=== PATIENT | female | born 1930 | race Caucasian/White ===

== ENCOUNTER 2016-10-19 20:43 | Inpatient (IN) ==
[2016-10-19] MEDS ORDERED: methylPREDNISolone SOD SUC 125 MG/2 ML VIAL IV STA (21:26)
[2016-10-19] MEDS ORDERED: IPRATROPIUM 500 MCG/2.5 ML NEB RESP TX STA (21:26)
--- NOTE | 2016-10-19 21:31 | Emergency Department Note ---
Arrival - Arrival Chief Complaint: Shortness of Breath Stated Complaint: heart issues/breathing problems ED Nursing Triage Note: patient to [facility] via stating she was trying to wait til in the am to see dr faye for a thoracentesis, audible wheezing noted in triage. o2 sat 87% Mode of Arrival: Wheelchair Limitations: No Limitations Source: Patient, RN Notes Reviewed Time Seen by Provider: 10/19/16 21:26 - History of Present Illness HPI Narrative: The patient complains of shortness of breath for the past 2 days. She has had a nonproductive cough and says she had a fever of 102 days ago. She denies any chest pain. No edema. She has a history of COPD and is had similar symptoms in the past, however, she has also had problems with pleural effusions and says she sees Dr. Faye about once a year to have it drained. She thinks her symptoms are due to the pleural effusion. She denies any nausea, vomiting or diaphoresis. She denies any rhinorrhea, sore throat or other symptoms. She does have a history of valvular heart disease and had surgery for that in the distant past. She has been told she needs surgery again but has refused due to her age. She says she has never had any coronary disease or congestive heart failure. She has a history of hypertension. Allergies/Adverse Reactions: Allergies Allergy/AdvReac Type Severity Reaction Status Date / Time No Known Allergies Allergy Verified 10/19/16 20:53 Home Medications: Home Medications Medication Instructions Recorded Confirmed Type Albuterol Sulfate [Ventolin HFA] 2 puff INH Q6H PRN 10/19/16 10/19/16 History Aspirin EC Tab 81 mg PO DAILY 10/19/16 10/19/16 History Furosemide Tab [Lasix Tab] 10 mg PO DAILY 10/19/16 10/19/16 History Losartan Potassium 50 mg PO 10/19/16 History amLODIPine [Norvasc] 5 mg PO DAILY 10/19/16 10/19/16 History Review of System - Review of System 12 point system: reviewed and no additional remarkable complaints except as stated - Review of System Constitutional: Present: fever. Absent: diaphoresis Head/Ears/Nose/Throat: Absent: nasal drainage, sore throat Respiratory: Present: cough, respiratory distress, wheezing Cardiovascular: Present: dyspnea on exertion. Absent: chest pain, edema Gastrointestinal: Absent: nausea, vomiting Medical,Surgical,& Family Hx - Medical History Cardio: History of: Congenital Heart Disease, Hypertension, Valvular Heart Disease Respiratory: History of: COPD, Respiratory Problems (Pleural effusions) - Surgical History Cardiac Surgeries: Sugical HX of: Cardiac Surgery - Family History Family History: noncontributory - Social History Smoking Status: Unknown if ever smoked Frequency of Alcohol Use: None Type of Drug Use: None Exam Physical Examination: GENERAL: Alert. No acute distress. HEENT: Normocephalic and atraumatic. There is no nasal drainage. No pharyngeal erythema or exudate. NECK: Normal inspection. Supple. No lymphadenopathy or meningismus. LUNGS: No respiratory distress. Decreased air movement. Heavy wheezing and rhonchi bilaterally. HEART: Regular rate and rhythm. ABDOMEN: Soft, nontender and nondistended with normoactive bowel sounds. BACK: Normal inspection. SKIN: Color normal. Warm and dry. EXTREMITIES: Diffuse tenderness of the lower legs. Normal range of motion. No pedal edema. NEUROLOGICAL/PSYCHIATRIC: Alert and oriented -3 with normal mood and affect. Cranial nerves normal. No motor or sensory deficit. Vital Signs: Vital Signs Temperature 99.0 F 10/19/16 20:46 Pulse Rate 98 H 10/19/16 22:15 Respiratory Rate 19 10/19/16 22:15 Blood Pressure 153/70 10/19/16 20:46 O2 Sat by Pulse Oximetry 98 10/19/16 22:15 Course - Reevaluation(s) Reevaluation #1: Patient states she cannot take albuterol due to heart problems. Time: 21:33 Reevaluation #2: The patient's breathing is slightly better after the Atrovent. We have given her Solu-Medrol and I am going to give her a little bit of Lasix to as her BNP was 305. I think this is mostly a COPD exacerbation however. It would be helpful if she could take albuterol but she insists that she cannot take it. Her troponin has come back slightly elevated at 1.7. I am waiting to discuss her with the licensed tax consultant who is in a procedure at present. Time: 22:44 Reevaluation #3: I have discussed the patient with Dr. Contreras and will admit him for serial enzymes and further evaluation. Time: 23:30 Results - Labs CBC & BMP: 10/19/16 21:20 10/19/16 21:20 Lab Results: I have reviewed the patients labs Labs: Laboratory Tests 10/19/16 10/19/16 10/19/16 21:20 21:20 21:20 INR 1.1 AST 43 H ALT 26 CK-MB (CK-2) 5.6 H CK and CKMB Interp 4.0 Troponin I 1.720 H B-Natriuretic Peptide 305 H Disposition Clinical Impression: Acute exacerbation of chronic obstructive airways disease, Congestive heart failure, Elevated troponin Case discussed with: patient, patient's family Disposition: Still a Patient Condition: Guarded Time of Disposition: 00:24
[2016-10-19 21:36] LABS: Basophils % 0.2 % (0.0-0.8); Eosinophils # 0.1 10*3/uL (0.0-0.87); Eosinophils % 0.5 % (0.00-10.9); Hematocrit 36.6 VOL% (35.7-47.0); Hemoglobin 11.8 GM/DL (12.0-16.0); Immature Granulocytes % 0.4 %; Immature Granulocytes Absolute 0.05 #; Lymphocytes # 1.4 10*3/uL (1.4-4.0); Lymphocytes % 10.4 % (21.3-54.2); Mean Corpuscular HGB Conc 32.2 GM/DL (32-36); Mean Corpuscular Hemoglobin 29 PG (27-34); Mean Corpuscular Volume 90.6 FL (87-102); Mean Platelet Volume 9.9 FL (9.6-12.0); Monocytes # 0.9 10*3/uL (0.11-0.8); Monocytes % 6.9 % (1.7-12.7); Neutrophils # 10.7 10*3/uL (1.4-7.4); Neutrophils % 81.6 % (38.7-73.9); Platelet Count 205 T/CUMM (130-400); Red Blood Count 4.04 MC/CUMM (3.8-5.5); Red Cell Distribution Width 13.2 % (9.3-17.3); White Blood Count 13.1 T/CUMM (4-12)
[2016-10-19 21:44] LABS: INR 1.1; PT Patient Result 11.2 SECS; Partial Thromboplastin Time 32.4 SECS (0-40)
[2016-10-19 21:50] LABS: Albumin 3.5 G/DL (3.4-5.0); Bilirubin,Total 0.9 MG/DL (0.2-1.0); Calcium 8.4 MG/DL (8.5-10.1); Magnesium 1.8 MG/DL (1.8-2.4); Potassium 3.4 MMOL/L (3.5-5.1); Total Protein 6.8 G/DL (6.4-8.3)
[2016-10-19] MEDS ORDERED: methylPREDNISolone SOD SUC 125 MG/2 ML VIAL ONE (21:50)
[2016-10-19 21:59] LABS: Troponin I Only 1.72 NG/ML (0.00-0.045)
[2016-10-19] MEDS ORDERED: NITROGLYCERIN SL 0.4 MG TABLET SL STA (22:02)
[2016-10-19] MEDS ORDERED: FUROSEMIDE 20 MG/2 ML VIAL IV STA (22:02)
[2016-10-19] MEDS ORDERED: ASPIRIN 325 MG TABLET PO STA (22:02)
[2016-10-19] MEDS ORDERED: ENOXAPARIN 100 MG/ML SYRINGE SUBCUT STA (22:03)
[2016-10-20] MEDS ORDERED: FUROSEMIDE 20 MG/2 ML VIAL ONE (01:11)
[2016-10-20] MEDS ORDERED: ASPIRIN EC 325 MG TABLET PO ONE (01:11)
[2016-10-20] MEDS ORDERED: ENOXAPARIN 100 MG/ML SYRINGE SUBCUT ONE (01:11)
[2016-10-20] MEDS ORDERED: ASPIRIN 325 MG TABLET ONE (01:12)
[2016-10-20] MEDS ORDERED: MORPHINE 2 MG/1 ML SYRINGE IV PRN (01:39)
[2016-10-20] MEDS ORDERED: MAGNESIUM SULF RIDER 2 GM in PREMIX 1 EACH IV PRN (01:39)
[2016-10-20] MEDS ORDERED: MAGNESIUM SULF RIDER 4 GM in PREMIX 1 EACH IV PRN (01:39)
[2016-10-20] MEDS ORDERED: ONDANSETRON 4 MG/2 ML VIAL IV PRN (01:39)
[2016-10-20] MEDS ORDERED: ENOXAPARIN 80 MG/0.8 ML SYRINGE SUBCUT SCH (01:39)
[2016-10-20] MEDS: methylPREDNISolone SOD SUC 125 MG/2 ML VIAL IV SCH ×4 (03:57→21:06)
--- NOTE | 2016-10-20 06:48 | XRay Report ---
XR chest 1V portable Indication: Dyspnea Comparison: None available Findings: The heart and mediastinum are within normal limits with cardiac surgery changes. The pulmonary vascularity is increased with bilateral increased interstitial lung density. No other lung infiltrates, effusions, pneumothorax or other abnormality is demonstrated. Impression: Findings suggest cardiac decompensation. PROCEDURE INTERPRETED AT [facility] DEPARTMENT OF RADIOLOGY Final Report Signed by: Dr. Schuyler Guerin
--- NOTE | 2016-10-20 07:09 | EKG Report ---
Stationary ECG Study [facility] Test Date: 10/20/2016 7:12:18 AM Pat Name: FABIAN ORTEGA Department: Room: 293 Gender: F Hall Coordinator: ROSEANN : 1930 Requested by: Jarad Hinojosa Order Number: [id number] Reading MD: INDY PINTO Intervals [place] Rate: 92 P: 71 MA: 184 QRS: 66 QRSD: 88 T: 41 QT: 352 QTc: 402 Interpretive Statements SINUS RHYTHM Electronically Signed On 10-21-16 05:31:25 CDT by INDY PINTO [email or web address]
[2016-10-20] MEDS: IPRATROPIUM 500 MCG/2.5 ML NEB RESP TX SCH ×3 (07:54→19:28)
--- NOTE | 2016-10-20 08:28 | Cardiology History & Physical ---
<Lizzette Hassan - Last Filed: 10/20/16 09:16> Assessment and Plan - Time spent with patient Time spent with patient: Greater than 30 minutes (1) Acute exacerbation of chronic obstructive airways disease Status: Acute Assessment and plan: See plan of care listed below. Current Visit: Yes (2) Elevated troponin Status: Acute Current Visit: Yes (3) Congestive heart failure Status: Acute Assessment and plan: See plan of care listed below. Current Visit: Yes (4) Valvular heart disease Status: Acute Assessment and plan: See plan of care listed below. Current Visit: Yes (5) Hypertension Status: Acute Assessment and plan: See plan of care listed below. Current Visit: Yes (6) Elevated glucose Status: Acute Assessment and plan: See plan of care listed below. Current Visit: Yes (7) Obesity Status: Acute Assessment and plan: See plan of care listed below. Current Visit: Yes (8) Former smoker Status: Acute Assessment and plan: See plan of care listed below. Current Visit: Yes (9) Leukocytosis Status: Acute Assessment and plan: See plan of care listed below. Current Visit: Yes (10) History of coronary artery disease Status: Chronic Assessment and plan: See plan of care listed below. Current Visit: Yes (11) Status post aorto-coronary artery bypass graft Status: Chronic Assessment and plan: See plan of care listed below. Current Visit: Yes History of Present Illness Chief complaint: Shortness of breath History of present illness: Blocker Hand: Dr. Garrett PCP: Marisel Velazquez NP Intake Coordinator: Dr. Erwin Faye Ms. Xiong is a 86 year old female with known history of coronary artery disease, routinely followed by [facility]. Patient has cardiac risk factors significant for known history of CAD hypertension, obesity, sedentary lifestyle, advanced age and former smoker (quit in 1987). Confirms family history of CAD (sister had open heart surgery and in her 50s). She has a past medical history of COPD and valvular heart disease. She reports that at her last appointment with Dr. Garrett informed her that she needed a valve replacement. However, she refused at that time due to her advanced age. She is status post CABG 1987 3. She is a poor historian and is unaware where her grafts are located. I have requested records from [facility]. She does not think that she has had heart catheterization since 1987. I have also requested records from Dr. Garrett's office and [facility]. Reports that she just saw Dr. Erwin Faye 2 weeks ago. She has never been seen by [facility]. Patient presented to [facility] yesterday evening with complaints of shortness of breath and wheezing that began Thursday afternoon. She reports that she does have a history of COPD and has chronic dyspnea, does not use home oxygen. However, this progressively worsened over the weekend. She was attempting to wait until today to see Dr. Erwin Faye. However, yesterday evening her friend became extremely worried and transfer her to the emergency department for further evaluation. She denies experiencing chest pain , heaviness or tightness. She also denies orthopnea, lower extremity edema and PND. She denies any recent change in her exercise tolerance. Confirms fever of 102 at home in nonproductive cough. She presented to [facility] yesterday evening for further evaluation. She has been admitted under cardiology service and housed the telemetry unit. Pulmonary has been consulted as well to assist in her acute COPD exacerbation. Patient was seen and examined on the telemetry unit. She reports her breathing has greatly improved after initiation of steroids and receiving IV Lasix. She is without complaints of chest pain, heaviness and tightness. Patient's troponin has been elevated this hospitalization. 1.720 at admission. This morning it was 1.350. Patient is without complaints of chest pain, heaviness and tightness. EKG does reveal nonspecific ST abnormality. She received therapeutic dose of Lovenox and full dose aspirin in the emergency room yesterday. Will hold off on adding beta blockade at this point due to her acute COPD exacerbation. Lipid panel has been obtained. Will initiate statin as patient does have a history of CAD. Continue nitrates, aspirin and ARB. Echocardiogram ordered. I will keep patient n.p.o. and further discuss with Dr. Tripathi regarding timing for heart catheterization. ASSESSMENT/PLAN: 1. COPD EXACERBATION - I will consult Dr. Erwin Faye as this is her primary head grinder. Continue IV steroid therapy and Atrovent. IV Levaquin has been initiated. 2. CONGESTIVE HEART FAILURE - Patient denies any past medical history of CHF. She reports that her last appointment with Dr. Garrett, he recommended valve replacement. She refused. Etiology could be multifactorial to include: Progression of her underlying CAD and/or valvular heart disease. BNP only mildly elevated at 305. She received a one-time dose of IV Lasix in the emergency department. I requested patient's medical records from Dr. Garrett' s office. I have ordered echocardiogram. I will further discuss with Dr. Tripathi and await his additional recommendations. 3. ELEVATED TROPONIN - Patient's troponin has been elevated this hospitalization. 1.720 at admission. This morning it was 1.350. Patient is without complaints of chest pain, heaviness and tightness. EKG does reveal nonspecific ST abnormality. She received therapeutic dose of Lovenox and full dose aspirin in the emergency room yesterday. Will hold off on adding beta blockade at this point due to her acute COPD exacerbation. Lipid panel has been obtained. Will initiate statin as patient does have a history of CAD. Continue nitrates, aspirin and ARB. I will keep patient n.p.o. and further discuss with Dr. Tripathi regarding timing for heart catheterization. 4. HISTORY OF CAD, STATUS POST CABG 1987 - Patient does have history of coronary artery bypass grafting 3 in 1987. She is unsure of where her grafts are located as she is a poor historian. I have requested these records from [facility]. As above. 5. HYPERTENSION - Patient's home medications have been reinitiated. Will monitor her blood pressure and adjust as needed throughout her hospitalization. 6. FORMER SMOKER - Patient reports that she quit smoking in 1987. 7. OBESITY - Weight loss encouraged. 8. ELEVATED GLUCOSE - Most likely secondary to steroid therapy. Hemoglobin A1c has been ordered. Will order sliding scale insulin for coverage while on IV steroids. 9. HISTORY OF VALVULAR HEART DISEASE - Per patient report, Dr. Garrett recommended valve replacement at her last clinic visit. She refused at that time. This could very well be contributing to her acute congestive heart failure. Echocardiogram has been ordered. I have also requested Dr. Garrett' s clinic note as patient has never been seen at [facility]. 10. LEUKOCYTOSIS - White blood cell count 13.1 with left shift. Patient confirms fever of 102 at home. Low-grade fever of 99.0 noted upon admission to [facility]. Blood cultures are pending. Urinalysis pending. I will go ahead and initiate IV Levaquin. Home Medications Medication Instructions Recorded Confirmed Type Albuterol Sulfate [Ventolin HFA] 2 puff INH Q6H PRN 10/19/16 10/20/16 History Aspirin EC Tab 81 mg PO DAILY 10/19/16 10/20/16 History Furosemide Tab [Lasix Tab] 10 mg PO DAILY 10/19/16 10/20/16 History Losartan Potassium 50 mg PO DAILY 10/19/16 10/20/16 History amLODIPine [Norvasc] 5 mg PO DAILY 10/19/16 10/20/16 History Allergies Allergy/AdvReac Type Severity Reaction Status Date / Time Beta-Blockers Allergy Severe Difficulty Verified 10/20/16 02:38 (Beta-Adrenergic Bloc Breathing Sulfa (Sulfonamide Allergy Unknown Unknown/Unable Verified 10/20/16 02:38 Antibiotics) to obtain - Constitutional Constitutional: Present: fatigue, fever(s), malaise. Absent: chills, weight gain, weight loss - Cardiovascular Cardiovascular: Present: as per HPI, dyspnea, dyspnea on exertion. Absent: chest pain at rest, chest pain with activity, claudication, diaphoresis, edema, radiating jaw, neck or arm pain, lightheadedness, orthopnea, palpitations, PND - Respiratory Respiratory: Present: as per HPI, cough, dyspnea, dyspnea on exertion, wheezing. Absent: hemoptysis, snoring, pain on inspiration, change in phlegm color - Gastrointestinal Gastrointestinal: Absent: change in bowel habits, coffee ground emesis, constipation, cramping, diarrhea, heartburn, hematemesis, hematochezia, loose stools, melena, nausea, vomiting - Neurological Neurological: Absent: abnormal gait, abnormal speech, behavioral changes, dizziness, numbness, paresthesias, syncope Medical,Surgical,& Family Hx - Medical History Cardio: History of: Congenital Heart Disease, Hypertension, Valvular Heart Disease Respiratory: History of: COPD, Respiratory Problems (Pleural effusions) Genitourinary: History of: Bladder Problem (prolapse) - Surgical History Cardiac Surgeries: Sugical HX of: Cardiac Surgery Abdominal Surgeries: Surgical HX of: Cholecystectomy Reproductive Surgeries: Surgical HX of;: Genitourinary Surgery, Gynecologic Surgery, Hysterectomy - Social History Smoking Status: Former smoker Frequency of Alcohol Use: None Type of Drug Use: None Marital Status: Single Lives With:: Alone Functional capacity: uses cane/walker Cardiology Physical Exam - Constitutional Vitals: Vital Signs Temp Pulse Resp BP Pulse Ox 96.6 F L 93 H 18 171/68 90 L 10/20/16 07:45 10/20/16 07:45 10/20/16 07:45 10/20/16 07:45 10/20/16 07:45 Intake and Output 10/19/16 10/20/16 10/20/16 22:59 06:59 14:59 Output Total 600 / 600 Balance -600 / -600 Output: Urine 600 / 600 Other: Voiding Method Toilet Weight 190 lb 203 lb Exam: General: Appears well with no apparent distress. Pleasant and cooperative. Appears comfortable. HEENT: PERRL, normocephalic, atraumatic. Mucous membranes moist. No jaundice noted. Conjunctiva moist and clear, sclerae anicteric Neck: No JVD/HJR, no thyromegaly or lymphadenopathy noted. Cardiac: Regular rate and rhythm. Grade 2 systolic murmur. Lungs: Bilateral rhonchi and wheezing auscultated throughout. Requiring oxygen via nasal cannula. Abdomen: Soft, bowel sounds normoactive. Nontender and nondistended. No abdominal bruit or thrill noted. No masses noted. Extremities: No clubbing, cyanosis noted. No edema noted. Upper extremity pulses 2+. Lower extremity pulses 2+. Capillary refill less than 3 seconds. Skin: No unusual lesions or rashes. No skin breakdown appreciated. Neuro: Awake, alert and oriented 3. Moves all extremities well without hemiparesis or paralysis. No essential tremor is appreciated. Result/EKG - Labs CBC & BMP: 10/19/16 21:20 10/19/16 21:20 Labs: Laboratory Results - last 24 hr 10/19/16 10/19/16 10/19/16 21:20 21:20 21:20 WBC RBC Hgb Hct MCV MCH MCHC RDW Plt Count MPV Neut % (Auto) Lymph % (Auto) [place] % (Auto) Eos % (Auto) Baso % (Auto) Neut # (Auto) Lymph # (Auto) [place] # (Auto) Eos # (Auto) Baso # (Auto) Immature Gran % Nucleated RBC % Immature Gran # Nucleated RBCs # INR 1.1 PT Patient/Control Mix 11.2 Circ Anticoag PTT 32.4 Sodium 136 Potassium 3.4 L Chloride 97 L Carbon Dioxide 29 Anion Gap 13.4 BUN 10 Creatinine 0.70 GFR Calculation 0 BUN/Creatinine Ratio 14.00 Glucose 155 H Calculated Osmolality 273.0 Calcium 8.4 L Magnesium 1.8 Total Bilirubin 0.90 AST 43 H ALT 26 Alkaline Phosphatase 77 Total Creatine Kinase 139 CK-MB (CK-2) 5.6 H CK and CKMB Interp 4.0 Troponin I 1.720 H B-Natriuretic Peptide 305 H Total Protein 6.8 Albumin 3.5 Globulin 3.3 Albumin/Globulin Ratio 1.0 L 10/19/16 10/20/16 10/20/16 21:20 02:10 05:27 WBC 13.1 H RBC 4.04 Hgb 11.8 L Hct 36.6 MCV 90.6 MCH 29 MCHC 32.2 RDW 13.2 Plt Count 205 MPV 9.9 Neut % (Auto) 81.6 H Lymph % (Auto) 10.4 L [place] % (Auto) 6.9 Eos % (Auto) 0.5 Baso % (Auto) 0.2 Neut # (Auto) 10.7 H Lymph # (Auto) 1.4 [place] # (Auto) 0.9 H Eos # (Auto) 0.1 Baso # (Auto) 0.0 Immature Gran % 0.4 Nucleated RBC % 0.0 Immature Gran # 0.05 Nucleated RBCs # 0.00 INR PT Patient/Control Mix Circ Anticoag PTT Sodium Potassium Chloride Carbon Dioxide Anion Gap BUN Creatinine GFR Calculation BUN/Creatinine Ratio Glucose Calculated Osmolality Calcium Magnesium Total Bilirubin AST ALT Alkaline Phosphatase Total Creatine Kinase CK-MB (CK-2) CK and CKMB Interp Troponin I 1.630 H 1.350 H B-Natriuretic Peptide Total Protein Albumin Globulin Albumin/Globulin Ratio <Jewel Tripathi - Last Filed: 10/20/16 10:18> History of Present Illness History of present illness: Cardiology addendum Patient examined chart reviewed and discussed with nurse Lizzette Hassan RN. Acute bronchitis/COPD Status post three-vessel CABG 1987 in [place]. Patient has had no cardiac cath since her bypass surgery. Her last nuclear stress is about 10 years ago. She is followed by Dr. Garrett at [place]. Remote tobacco abuse quit 1987 Chest x-ray shows CHF with small effusion. BNP level 305 Elevated cholesterol, patient refuses statin therapy. Status post cholecystectomy EKG shows sinus rhythm with ST-T wave changes. Non-Q-wave infarction troponin level 1.720 and 1.630 White count 13.1 with left shift Hypertension Murmur aortic sclerosis Plan Levofloxacin nebs O2 Echo Doppler today Will need heart cath when breathing improved. Cardiology Physical Exam - Constitutional Vitals: Vital Signs Temp Pulse Resp BP Pulse Ox 96.6 F L 93 H 18 171/68 90 L 10/20/16 07:45 10/20/16 07:45 10/20/16 07:45 10/20/16 07:45 10/20/16 07:45 Intake and Output 10/19/16 10/20/16 10/20/16 23:59 07:59 15:59 Output Total 600 / 600 Balance -600 / -600 Output: Urine 600 / 600 Other: Voiding Method Toilet Weight 86.183 kg 92.079 kg Patient Weight 10/20/16 23:59 Weight 92.079 kg Result/EKG - Labs CBC & BMP: 10/19/16 21:20 10/19/16 21:20 Labs: Laboratory Results - last 24 hr 10/19/16 10/19/16 10/19/16 21:20 21:20 21:20 WBC RBC Hgb Hct MCV MCH MCHC RDW Plt Count MPV Neut % (Auto) Lymph % (Auto) [place] % (Auto) Eos % (Auto) Baso % (Auto) Neut # (Auto) Lymph # (Auto) [place] # (Auto) Eos # (Auto) Baso # (Auto) Immature Gran % Nucleated RBC % Immature Gran # Nucleated RBCs # INR 1.1 PT Patient/Control Mix 11.2 Circ Anticoag PTT 32.4 Sodium 136 Potassium 3.4 L Chloride 97 L Carbon Dioxide 29 Anion Gap 13.4 BUN 10 Creatinine 0.70 GFR Calculation 0 BUN/Creatinine Ratio 14.00 Glucose 155 H Hemoglobin A1c Calculated Osmolality 273.0 Calcium 8.4 L Magnesium 1.8 Total Bilirubin 0.90 AST 43 H ALT 26 Alkaline Phosphatase 77 Total Creatine Kinase 139 CK-MB (CK-2) 5.6 H CK and CKMB Interp 4.0 Troponin I 1.720 H B-Natriuretic Peptide 305 H Total Protein 6.8 Albumin 3.5 Globulin 3.3 Albumin/Globulin Ratio 1.0 L Triglycerides Cholesterol LDL Cholesterol VLDL Cholesterol HDL Cholesterol Heart Disease Risk Ratio 10/19/16 10/20/16 10/20/16 21:20 02:10 05:27 WBC 13.1 H RBC 4.04 Hgb 11.8 L Hct 36.6 MCV 90.6 MCH 29 MCHC 32.2 RDW 13.2 Plt Count 205 MPV 9.9 Neut % (Auto) 81.6 H Lymph % (Auto) 10.4 L [place] % (Auto) 6.9 Eos % (Auto) 0.5 Baso % (Auto) 0.2 Neut # (Auto) 10.7 H Lymph # (Auto) 1.4 [place] # (Auto) 0.9 H Eos # (Auto) 0.1 Baso # (Auto) 0.0 Immature Gran % 0.4 Nucleated RBC % 0.0 Immature Gran # 0.05 Nucleated RBCs # 0.00 INR PT Patient/Control Mix Circ Anticoag PTT Sodium Potassium Chloride Carbon Dioxide Anion Gap BUN Creatinine GFR Calculation BUN/Creatinine Ratio Glucose Hemoglobin A1c Calculated Osmolality Calcium Magnesium Total Bilirubin AST ALT Alkaline Phosphatase Total Creatine Kinase CK-MB (CK-2) CK and CKMB Interp Troponin I 1.630 H 1.350 H B-Natriuretic Peptide Total Protein Albumin Globulin Albumin/Globulin Ratio Triglycerides Cholesterol LDL Cholesterol VLDL Cholesterol HDL Cholesterol Heart Disease Risk Ratio 10/20/16 10/20/16 10/20/16 08:44 08:44 08:44 WBC RBC Hgb Hct MCV MCH MCHC RDW Plt Count MPV Neut % (Auto) Lymph % (Auto) [place] % (Auto) Eos % (Auto) Baso % (Auto) Neut # (Auto) Lymph # (Auto) [place] # (Auto) Eos # (Auto) Baso # (Auto) Immature Gran % Nucleated RBC % Immature Gran # Nucleated RBCs # INR PT Patient/Control Mix Circ Anticoag PTT Sodium Potassium Chloride Carbon Dioxide Anion Gap BUN Creatinine GFR Calculation BUN/Creatinine Ratio Glucose Hemoglobin A1c 6.1 Calculated Osmolality Calcium Magnesium Total Bilirubin AST ALT Alkaline Phosphatase Total Creatine Kinase CK-MB (CK-2) CK and CKMB Interp Troponin I 1.160 H B-Natriuretic Peptide Total Protein Albumin Globulin Albumin/Globulin Ratio Triglycerides 103 Cholesterol 185 LDL Cholesterol 108.0 VLDL Cholesterol 20.6 HDL Cholesterol 66 H Heart Disease Risk Ratio 2.80
--- NOTE | 2016-10-20 09:00 | Pulmonology Consult Note ---
Assessment and Plan (1) Acute exacerbation of chronic obstructive airways disease Status: Acute Assessment and plan: The patient comes in with acute bronchitis and exacerbation of her COPD. She has been started on antibiotics, steroids, and bronchodilator therapy. Hopefully she will clear fairly quickly. She has not had a lot of problems in the past. She is stable at present. Current Visit: Yes (2) Hypertension Status: Acute Assessment and plan: She will continue with blood pressure medicines. Current Visit: Yes (3) Valvular heart disease Status: Acute Assessment and plan: She has had previous valvular heart disease but has been doing reasonably well lately. Current Visit: Yes History of Present Illness Chief complaint: Shortness of breath History of present illness: Ms. Xiong is a 86 year old white female that has a history of having hypertensive cardiovascular disease and mild heart failure in the past. She probably has a minimal component of COPD. She did have a pleural effusion at one time due to heart failure. She has been doing well lately for the last 2 or 3 days she has had some cough and wheezing and congestion. She comes in now with acute bronchitis. She has had some mild fever and chills. She has been coughing and wheezing. She is not having any chest pain. Home Medications Medication Instructions Recorded Confirmed Type Albuterol Sulfate [Ventolin HFA] 2 puff INH Q6H PRN 10/19/16 10/20/16 History Aspirin EC Tab 81 mg PO DAILY 10/19/16 10/20/16 History Furosemide Tab [Lasix Tab] 10 mg PO DAILY 10/19/16 10/20/16 History Losartan Potassium 50 mg PO DAILY 10/19/16 10/20/16 History amLODIPine [Norvasc] 5 mg PO DAILY 10/19/16 10/20/16 History Allergies Allergy/AdvReac Type Severity Reaction Status Date / Time Beta-Blockers Allergy Severe Difficulty Verified 10/20/16 02:38 (Beta-Adrenergic Bloc Breathing Sulfa (Sulfonamide Allergy Unknown Unknown/Unable Verified 10/20/16 02:38 Antibiotics) to obtain - Constitutional Constitutional: Present: chills, fatigue, fever(s). Absent: weight gain, weight loss - EENT Eyes: Absent: loss of vision Ears: Present: decreased hearing Nose, mouth and throat: Absent: dysphagia, headache(s), sinus pressure - Cardiovascular Cardiovascular: Present: dyspnea. Absent: chest pain at rest, chest pain with activity, edema - Respiratory Respiratory: Present: cough, dyspnea, wheezing, change in phlegm color. Absent : hemoptysis - Gastrointestinal Gastrointestinal: Absent: abdominal pain, change in bowel habits, dysphagia, nausea, vomiting - Genitourinary Genitourinary: Absent: difficulty urinating, dysuria, hematuria - Musculoskeletal Musculoskeletal: Present: arthralgias. Absent: muscle weakness - Neurological Neurological: Absent: abnormal speech, focal weakness, paresthesias Exam (Pulmonay) H&P - Constitutional Vitals: Period Temp Pulse Resp BP Sys/Anderson Pulse Ox Last 24 Hr 96.6 F-99.0 F 87-108 18-28 110-171/53-78 87-98 General appearance: mild distress (She is alert and reasonably comfortable lying in bed. She does have some wheezing and coughing present), over weight - Head Head exam: Present: normal inspection, normocephalic - Eye Eye exam: Present: EOMI. Absent: scleral icterus Pupils: Present: NANCY - ENT ENT exam: Present: normal exam - Neck Neck exam: Present: normal inspection. Absent: lymphadenopathy, thyromegaly - Respiratory Respiratory exam: Present: rhonchi, wheezes, other (She has good breath sounds bilaterally with some wheezing and rhonchi present). Absent: accessory muscle use - Cardiovascular Cardiovascular exam: Present: regular rate and rhythm, systolic murmur (She has a soft systolic murmur). Absent: gallop, JVD - GI/Abdominal GI/Abdominal exam: Present: normal bowel sounds, soft. Absent: distended, organomegaly, tenderness - Extremities Exam Extremities exam: Absent: calf tenderness, edema - Neurological Exam Neurological exam: Present: alert, oriented X3, CN II-XII intact. Absent: motor sensory deficit - Psychiatric Psychiatric exam: Present: normal affect - Skin Skin exam: Present: warm, dry Medical,Surgical,& Family Hx - Medical History Cardio: History of: Congenital Heart Disease, Hypertension, Valvular Heart Disease Respiratory: History of: COPD, Respiratory Problems (Pleural effusions) Genitourinary: History of: Bladder Problem (prolapse) - Surgical History Cardiac Surgeries: Sugical HX of: Cardiac Surgery Abdominal Surgeries: Surgical HX of: Cholecystectomy Reproductive Surgeries: Surgical HX of;: Genitourinary Surgery, Gynecologic Surgery, Hysterectomy - Social History Smoking Status: Former smoker Frequency of Alcohol Use: None Type of Drug Use: None Results - Labs CBC & BMP: 10/19/16 21:20 10/19/16 21:20 - Diagnostic Findings Procedure: Chest x-ray: image reviewed by me, report reviewed by me (Chest x- ray showed borderline cardiomegaly with slight increased markings bilaterally. X-ray does suggest some COPD changes. There is no overt heart failure.)
--- NOTE | 2016-10-20 09:32 | EKG Report ---
Stationary ECG Study [facility] ER Test Date: 10/19/2016 8:55:48 PM Pat Name: FABIAN ORTEGA Department: Room: 293 Gender: F Prescription Clerk: Deepali : 1930 Requested by: Jarad Hinojosa Order Number: [id number] Reading MD: INDY PINTO Intervals Elsa Rate: 110 P: 64 MT: 155 QRS: 64 QRSD: 93 T: 48 QT: 305 QTc: 370 Interpretive Statements SINUS TACHYCARDIA Electronically Signed On 10-21-16 05:16:10 CDT by INDY PINTO [email or web address]
[2016-10-20] MEDS: amLODIPine 5 MG TABLET PO SCH (09:46)
[2016-10-20] MEDS: LOSARTAN 50 MG TABLET PO SCH (09:47)
[2016-10-20] MEDS: PANTOPRAZOLE 40 MG TABLET PO SCH (09:47)
[2016-10-20 09:48] LABS: Risk Ratio 2.8; VLDL CHOLESTEROL 20.6 MG/DL
[2016-10-20] MEDS: ASPIRIN EC 81 MG TABLET PO SCH (09:48)
[2016-10-20] MEDS: FUROSEMIDE 40 MG/4 ML VIAL IV SCH (10:28)
[2016-10-20] MEDS: LEVOFLOXACIN INJ 500 MG in PREMIX 1 EACH IV SCH (10:28)
[2016-10-20 11:50] LABS: Apearance,Urine CLEAR (Clear); Bilirubin,Urine Negative (Negative); Blood, Urine Negative (Negative); Glucose,Urine (UA) Negative (Negative); Hyaline Casts,Urine 1 /LPF (0-3); Ketones,Urine Negative (Negative); Nitrite,Urine Negative (Negative); Protein,Urine Negative; Squamous Epithelial Cell,Urine Occasional /HPF (0-10); Urine Color Yellow (Yellow); Urine Specific Gravity 1.008 (1.001-1.035); Urine Urobilinogen < 2.0 EU/DL (0.2-1.0); WBC,Urine <1 /HPF (0-6)
[2016-10-20] MEDS: INSULIN REGULAR 100 UNIT/ML SUBCUT SCH ×3 (12:50→21:06)
--- NOTE | 2016-10-20 16:33 | ECHO Report ---
Ten Xiong Exam Date: 10/20/2016 10:33 Referring Physician: Technologist: Amie Bansal RDCS Age: 86 Ht (in): 63 Wt (lb): 203 Gender: F Exam Location: [facility] Echo Indications: Dyspnea, unspecified, Elevated troponin, Acute exacerbation COPD, Heart failure, unspecified, Valvular heart disease, Essential (primary) hypertension, Elevated glucose, CAD with previous CABG BP: 171 / 68 HR: 113 Rhythm: Sinus Technical Quality: Limited IMPRESSIONS Left ventricular ejection fraction is estimated at 60 %. Diastolic parameters are most consistent with grade 1 diastolic dysfunction or impaired relaxation. Mild aortic stenosis Mild to moderate posterior directed jet of mitral regurgitation Mild tricuspid regurgitation with estimated right ventricular systolic pressure of 44 mmHg plus right atrial pressure MEASUREMENTS (Male / Female) Normal Values 2D ECHO LV Diastolic Diameter PLAX 4.0 cm 4.2 - 5.9 / 3.9 - 5.3 cm LV Systolic Diameter PLAX 3.5 cm LV Fractional Shortening PLAX 14.4 % IVS Diastolic Thickness 1.1 cm 0.6 - 1.0 / 0.6 - 0.9 cm LVPW Diastolic Thickness 1.1 cm 0.6 - 1.0 / 0.6 - 0.9 cm RV Internal Dim ED PLAX 3.7 cm Aortic Root Diameter 3.1 cm LA Systolic Diameter LX 3.9 cm 3.0 - 4.0 / 2.7 - 3.8 cm DOPPLER TR Peak Velocity 331.0 cm/s TR Peak Gradient 43.8 mmHg FINDINGS Left Ventricle Normal left ventricular cavity size. Mild left ventricular hypertrophy. Left ventricular ejection fraction is estimated at 60 %. Diastolic parameters are most consistent with grade 1 diastolic dysfunction or impaired relaxation Right Ventricle The right ventricle is normal in size and function. Right Atrium Moderately increased right atrial size. Left Atrium Moderately increased left atrial size. Mitral Valve Morphologically normal mitral valve. Mild mitral annular calcification. Mild posterior directed mitral valve regurgitation. Aortic Valve Mild aortic valve calcification. Mild aortic valve stenosis, mean gradient 15 mmHg, PATRICIA 1.6 cm. The peak velocity across the valve is 2.55 m/s. Tricuspid Valve Morphologically normal tricuspid valve. [id number] tricuspid valve regurgitation. Tricuspid regurgitation velocities suggest a RVSP of 44 mmHg plus the right atrial pressure.. Pulmonic Valve Morphologically normal pulmonic valve. Mild pulmonary valve regurgitation. Pericardium Normal pericardium without effusion. Aorta Normal ascending aorta dimension. Shakira Garcia (Electronically Signed) Final Date: 20 October 2016 16:32
[2016-10-20] MEDS: ATORVASTATIN 40 MG TABLET PO SCH (21:06)
[2016-10-21] MEDS: IPRATROPIUM 500 MCG/2.5 ML NEB RESP TX SCH ×2 (00:07→07:24)
[2016-10-21] MEDS: methylPREDNISolone SOD SUC 125 MG/2 ML VIAL IV SCH ×4 (04:32→22:16)
[2016-10-21 05:24] LABS: Basophils % 0.1 % (0.0-0.8); Hematocrit 34.7 VOL% (35.7-47.0); Hemoglobin 11.4 GM/DL (12.0-16.0); Immature Granulocytes % 0.7 %; Lymphocytes % 7.3 % (21.3-54.2); Mean Corpuscular HGB Conc 32.9 GM/DL (32-36); Mean Corpuscular Hemoglobin 30 PG (27-34); Mean Corpuscular Volume 90.6 FL (87-102); Mean Platelet Volume 10.4 FL (9.6-12.0); Monocytes # 0.4 10*3/uL (0.11-0.8); Neutrophils # 12.1 10*3/uL (1.4-7.4); Neutrophils % 88.9 % (38.7-73.9); Platelet Count 219 T/CUMM (130-400); Red Blood Count 3.83 MC/CUMM (3.8-5.5); Red Cell Distribution Width 12.9 % (9.3-17.3); White Blood Count 13.7 T/CUMM (4-12)
[2016-10-21 05:57] LABS: Hypochromasia 1+; Microcytosis 1+; Platelet Estimate Normal
[2016-10-21 06:01] LABS: Calcium 8.4 MG/DL (8.5-10.1); Osmolality,Calculated 277.8 MOS/KG (273-304); Potassium 3.8 MMOL/L (3.5-5.1)
--- NOTE | 2016-10-21 07:42 | XRay Report ---
XR chest 2V Indication: Shortness of breath Comparison: 19 October 2016 Findings: The heart and mediastinum are stable in size and configuration with cardiac surgery changes. The pulmonary vascularity is normal in caliber. There is increased in the right midlung and right lower lung density. No other lung infiltrates, effusions, pneumothorax or other abnormality is demonstrated. Impression: Increased right lower lung density could indicate infiltrate or atelectasis. PROCEDURE INTERPRETED AT [facility] DEPARTMENT OF RADIOLOGY Final Report Signed by: Dr. Schuyler Guerin
[2016-10-21 09:20] LABS: CKMB % 2.7 %
[2016-10-21 09:21] LABS: Troponin I Only 0.768 NG/ML (0.00-0.045)
--- NOTE | 2016-10-21 09:26 | Pulmonology Progress Note ---
Pulmonary - PN: Subj Interval history: Patient is an 86-year-old white lady that has a history of having hypertension and valvular heart disease and has had a component of heart failure in the past. She also may have some very mild COPD. She comes in with coughing and wheezing and looks like she is having a COPD exacerbation. She says she is feeling a little better today. She is still coughing a lot. She is not having any chest pain now. She has developed some right middle lobe atelectasis. She says she is tolerating the treatments okay. Exam (Progress Note) - Constitutional Vitals: Period Temp Pulse Resp BP Sys/Anderson Pulse Ox Last 24 Hr 97.3 F-97.9 F 90-107 18-21 109-149/42-96 91-100 Exam: General appearance: mild distress (She is alert and reasonably comfortable lying in bed. She does have some wheezing and coughing present. She looks like she feels a little better at present.), over weight - Head Head exam: Present: normal inspection, normocephalic - Eye Eye exam: Present: EOMI. Absent: scleral icterus Pupils: Present: NANCY - ENT ENT exam: Present: normal exam - Neck Neck exam: Present: normal inspection. Absent: lymphadenopathy, thyromegaly - Respiratory Respiratory exam: Present: She has fairly good breath sounds bilaterally but she does have mild wheezing still. - Cardiovascular Cardiovascular exam: Present: regular rate and rhythm, systolic murmur (She has a soft systolic murmur). Absent: gallop, JVD - GI/Abdominal GI/Abdominal exam: Present: normal bowel sounds, soft. Absent: distended, organomegaly, tenderness - Extremities Exam Extremities exam: Absent: calf tenderness, edema - Neurological Exam Neurological exam: Present: alert, oriented X3, CN II-XII intact. Absent: motor sensory deficit - Psychiatric Psychiatric exam: Present: normal affect - Skin Skin exam: Present: warm, dry Results - Labs CBC & BMP: 10/21/16 04:11 10/21/16 04:11 - Diagnostic Findings Procedure: Chest x-ray: image reviewed by me, report reviewed by me (Chest x- ray shows right middle lobe atelectasis now.) Assessment and Plan (1) Acute exacerbation of chronic obstructive airways disease Status: Acute Assessment and plan: The patient comes in with acute bronchitis and exacerbation of her COPD. She has been started on antibiotics, steroids, and bronchodilator therapy. She now has some right middle lobe atelectasis. Will continue vigorous respiratory therapy for now. Current Visit: Yes (2) Hypertension Status: Acute Assessment and plan: She will continue with blood pressure medicines. Current Visit: Yes (3) Valvular heart disease Status: Acute Assessment and plan: She has had previous valvular heart disease but has been doing reasonably well lately. Her echo does not look too bad at present. Current Visit: Yes
--- NOTE | 2016-10-21 09:52 | Cardiology Progress Note ---
<Lizzette Hassan - Last Filed: 10/21/16 09:17> Assessment and Plan - Time spent with patient Time spent with patient: Greater than 30 minutes (1) Acute exacerbation of chronic obstructive airways disease Status: Acute Assessment and plan: See plan of care listed below. Current Visit: Yes (2) Elevated troponin Status: Acute Current Visit: Yes (3) Congestive heart failure Status: Acute Assessment and plan: See plan of care listed below. Current Visit: Yes Qualifiers: Congestive heart failure type: diastolic Congestive heart failure chronicity: unspecified congestive heart failure chronicity Qualified Code(s) : I50.30 - Unspecified diastolic (congestive) heart failure (4) Valvular heart disease Status: Acute Assessment and plan: See plan of care listed below. Current Visit: Yes (5) Hypertension Status: Acute Assessment and plan: See plan of care listed below. Current Visit: Yes (6) Elevated glucose Status: Acute Assessment and plan: See plan of care listed below. Current Visit: Yes (7) Obesity Status: Acute Assessment and plan: See plan of care listed below. Current Visit: Yes (8) Former smoker Status: Acute Assessment and plan: See plan of care listed below. Current Visit: Yes (9) Leukocytosis Status: Acute Assessment and plan: See plan of care listed below. Current Visit: Yes (10) History of coronary artery disease Status: Chronic Assessment and plan: See plan of care listed below. Current Visit: Yes (11) Status post aorto-coronary artery bypass graft Status: Chronic Assessment and plan: See plan of care listed below. Current Visit: Yes (12) Acute bronchitis Status: Acute Assessment and plan: See plan of care listed below. Current Visit: Yes (13) Non-ST elevation SD (NSTEMI) Status: Acute Assessment and plan: See plan of care listed below. Current Visit: Yes (14) Mild aortic stenosis Status: Acute Assessment and plan: See plan of care listed below. Current Visit: Yes Cardiology - PN: Subj Interval history: Director Of Pupil Personnel Program: Dr. Garrett PCP: Marisel Velazquez, TOWEL CABINET REPAIRER Community Affairs Manager: Dr. Erwin Faye SUMMARY Ms. Xiong is a 86 year old female with PMH of known history of CAD, hypertension, obesity, former smoker (quit in 1987), COPD and valvular heart disease. She reports that at her last appointment with Dr. Garrett, he informed her that she needed a valve replacement. However, she refused at that time due to her advanced age. She is status post CABG 1987 3. She is a poor historian and is unaware where her grafts are located. I have requested records from [facility]. She does not think that she has had heart catheterization since 1987. I have also requested records from Dr. Garrett's office and [facility]. Reports that she just saw Dr. Erwin Faye 2 weeks ago. She has never been seen by [facility]ology. Patient presented to [facility] October 19, 2016. She has been treated for COPD exacerbation, acute congestive heart failure and non- ST elevation SD. Troponin at admission was noted to be 1.720. It has since trended downward. Dr. Erwin Faye has been consulted for assistance in treating her COPD exacerbation. Plan for left heart catheterization when her breathing improves. OCTOBER 21, 2016 Patient was seen and examined on the telemetry unit. She is without complaints of chest pain, heaviness and tightness. Troponin is trending down. She reports that her breathing has improved overnight but is not yet back to baseline. She is being diuresed with IV Lasix. She is diuresing well with this. Weight is unchanged overnight. Dr. Erwin Faye is treating her acute COPD exacerbation. Echocardiogram yesterday revealed LVEF 60%. Grade 1 diastolic dysfunction. Mild aortic stenosis. Mild to moderate MR. Mild TR. After spending several minutes discussing heart catheterization, patient tells me that she does not wish to have this procedure done. She reports that she is just too old. I continued to discuss and educate her about this procedure and her condition. She then reports that she has had this procedure done before and she understands this procedure. However, continues to refuse to have this procedure done. Overall, her vital signs have been stable. At this point, we will treat her non-ST elevation SD medically. I will further discuss with Dr. Tripathi and await his additional recommendations. ASSESSMENT/PLAN: 1. ACUTE COPD EXACERBATION - Continue IV steroid therapy, Levaquin and Atrovent. Dr. Erwin Faye is following. 2. CONGESTIVE HEART FAILURE, DIASTOLIC DYSFUNCTION - Echocardiogram yesterday revealed LVEF of 60% and grade 1 diastolic dysfunction. Patient is being diuresed with Lasix 40 mg IV daily. She is diuresing well with this. Weight unchanged overnight. Continue Lasix, daily weights and strict I's and O's. 3. NON-ST ELEVATION SD -troponin is trending downward. Today it is 0.768. Patient is without complaints of chest pain, heaviness and tightness. Patient is now refusing heart catheterization. I spent at least 20 minutes in patient' s room discussing and educating her on this procedure. She continues to refuse at this time. At this point, we will treat patient medically. Unable to initiate beta-blockade as patient is allergic to this class of medications. Lipid panel reviewed. LDL 108. Statin was reinitiated yesterday. Patient will need repeat lipid panel in 6 weeks. Continue nitrates, aspirin and ARB. Patient also denies cardiac rehabilitation at this time. I will further discuss with Dr. Tripathi and await his additional recommendations. 4. HISTORY OF CAD, STATUS POST CABG 1987 - Patient does have history of coronary artery bypass grafting 3 in 1987. She is unsure of where her grafts are located as she is a poor historian. 5. HYPERTENSION - Patient's home medications have been reinitiated. Will monitor her blood pressure and adjust as needed throughout her hospitalization. 6. FORMER SMOKER - Patient reports that she quit smoking in 1987. 7. OBESITY - Weight loss encouraged. 8. ELEVATED GLUCOSE - Most likely secondary to steroid therapy. Hemoglobin A1c 6.1. Continue to cover with sliding scale insulin while receiving IV steroids. 9. HISTORY OF VALVULAR HEART DISEASE, MILD AORTIC STENOSIS - Echocardiogram yesterday revealed LVEF 60%. Grade 1 diastolic dysfunction. Mild aortic stenosis. Mild to moderate MR. Mild TR. continue current plan of care. 10. LEUKOCYTOSIS - White blood cell count 13.7 with left shift. Afebrile overnight. Blood cultures reveal no growth at 1 day. UA negative. Continue IV Levaquin. 11. ACUTE BRONCHITIS - Management per Erwin Faye. Continue steroids, antibiotics and bronchodilator therapy. Exam (Progress Note) - Constitutional Vitals: Period Temp Pulse Resp BP Sys/Anderson Pulse Ox Last 24 Hr 97.3 F-97.9 F 90-107 18-21 109-149/42-96 91-100 Exam: General: Appears well with no apparent distress. Pleasant and cooperative. Appears comfortable. HEENT: PERRL, normocephalic, atraumatic. Mucous membranes moist. No jaundice noted. Conjunctiva moist and clear, sclerae anicteric Neck: No JVD/HJR, no thyromegaly or lymphadenopathy noted. Cardiac: Regular rate and rhythm. Grade 2 systolic murmur. Lungs: Breath sounds have improved since yesterday. Bilateral rhonchi, improved. No wheezing auscultated. Requiring oxygen via nasal cannula. Abdomen: Soft, bowel sounds normoactive. Nontender and nondistended. No abdominal bruit or thrill noted. No masses noted. Extremities: No clubbing, cyanosis noted. No edema noted. Upper extremity pulses 2+. Lower extremity pulses 2+. Capillary refill less than 3 seconds. Skin: No unusual lesions or rashes. No skin breakdown appreciated. Neuro: Awake, alert and oriented 3. Moves all extremities well without hemiparesis or paralysis. No essential tremor is appreciated. Result/EKG - Labs CBC & BMP: 10/21/16 04:11 10/21/16 04:11 Lab Results: I have reviewed the past 24 hour labs Labs: Laboratory Results - last 24 hr 10/20/16 10/20/16 10/20/16 08:44 08:44 08:44 WBC RBC Hgb Hct MCV MCH MCHC RDW Plt Count MPV Neut % (Auto) Lymph % (Auto) [place] % (Auto) Eos % (Auto) Baso % (Auto) Neut # (Auto) Lymph # (Auto) [place] # (Auto) Eos # (Auto) Baso # (Auto) Immature Gran % Nucleated RBC % Immature Gran # Nucleated RBCs # Platelet Estimate Hypochromasia Microcytosis Sodium Potassium Chloride Carbon Dioxide Anion Gap BUN Creatinine GFR Calculation BUN/Creatinine Ratio Glucose POC Glucose Hemoglobin A1c 6.1 Calculated Osmolality Calcium Magnesium Troponin I 1.160 H Triglycerides 103 Cholesterol 185 LDL Cholesterol 108.0 VLDL Cholesterol 20.6 HDL Cholesterol 66 H Heart Disease Risk Ratio 2.80 Urine Color Urine Appearance Urine pH Ur Specific Ignacio Urine Protein Urine Glucose (UA) Urine Ketones Urine Blood Urine Nitrate Urine Bilirubin Urine Urobilinogen Urine Leukocytes Urine WBC Ur Squamous Epith Cells Hyaline Casts Ur Culture Indicated? 10/20/16 10/20/16 10/20/16 11:42 12:47 16:11 WBC RBC Hgb Hct MCV MCH MCHC RDW Plt Count MPV Neut % (Auto) Lymph % (Auto) [place] % (Auto) Eos % (Auto) Baso % (Auto) Neut # (Auto) Lymph # (Auto) [place] # (Auto) Eos # (Auto) Baso # (Auto) Immature Gran % Nucleated RBC % Immature Gran # Nucleated RBCs # Platelet Estimate Hypochromasia Microcytosis Sodium Potassium Chloride Carbon Dioxide Anion Gap BUN Creatinine GFR Calculation BUN/Creatinine Ratio Glucose POC Glucose 217 H 133 H Hemoglobin A1c Calculated Osmolality Calcium Magnesium Troponin I Triglycerides Cholesterol LDL Cholesterol VLDL Cholesterol HDL Cholesterol Heart Disease Risk Ratio Urine Color Yellow Urine Appearance Clear Urine pH 6.0 Ur Specific Ignacio 1.008 Urine Protein Negative Urine Glucose (UA) Negative Urine Ketones Negative Urine Blood Negative Urine Nitrate Negative Urine Bilirubin Negative Urine Urobilinogen < 2.0 H Urine Leukocytes Negative Urine WBC <1 Ur Squamous Epith Cells Occasional Hyaline Casts 1 Ur Culture Indicated? Not indicated 10/20/16 10/21/16 10/21/16 20:20 04:11 04:11 WBC 13.7 H RBC 3.83 Hgb 11.4 L Hct 34.7 L MCV 90.6 MCH 30 MCHC 32.9 RDW 12.9 Plt Count 219 MPV 10.4 Neut % (Auto) 88.9 H Lymph % (Auto) 7.3 L [place] % (Auto) 3.0 Eos % (Auto) 0.0 Baso % (Auto) 0.1 Neut # (Auto) 12.1 H Lymph # (Auto) 1.0 L [place] # (Auto) 0.4 Eos # (Auto) 0.0 Baso # (Auto) 0.0 Immature Gran % 0.7 Nucleated RBC % 0.0 Immature Gran # 0.10 Nucleated RBCs # 0.00 Platelet Estimate Normal Hypochromasia 1+ Microcytosis 1+ Sodium 137 Potassium 3.8 Chloride 97 L Carbon Dioxide 34 H Anion Gap 9.8 BUN 16 Creatinine 0.70 GFR Calculation 89 BUN/Creatinine Ratio 22.00 H Glucose 178 H POC Glucose 169 H Hemoglobin A1c Calculated Osmolality 277.8 Calcium 8.4 L Magnesium 2.0 Troponin I Triglycerides Cholesterol LDL Cholesterol VLDL Cholesterol HDL Cholesterol Heart Disease Risk Ratio Urine Color Urine Appearance Urine pH Ur Specific Ignacio Urine Protein Urine Glucose (UA) Urine Ketones Urine Blood Urine Nitrate Urine Bilirubin Urine Urobilinogen Urine Leukocytes Urine WBC Ur Squamous Epith Cells Hyaline Casts Ur Culture Indicated? 10/21/16 07:20 WBC RBC Hgb Hct MCV MCH MCHC RDW Plt Count MPV Neut % (Auto) Lymph % (Auto) [place] % (Auto) Eos % (Auto) Baso % (Auto) Neut # (Auto) Lymph # (Auto) [place] # (Auto) Eos # (Auto) Baso # (Auto) Immature Gran % Nucleated RBC % Immature Gran # Nucleated RBCs # Platelet Estimate Hypochromasia Microcytosis Sodium Potassium Chloride Carbon Dioxide Anion Gap BUN Creatinine GFR Calculation BUN/Creatinine Ratio Glucose POC Glucose 157 H Hemoglobin A1c Calculated Osmolality Calcium Magnesium Troponin I Triglycerides Cholesterol LDL Cholesterol VLDL Cholesterol HDL Cholesterol Heart Disease Risk Ratio Urine Color Urine Appearance Urine pH Ur Specific Ignacio Urine Protein Urine Glucose (UA) Urine Ketones Urine Blood Urine Nitrate Urine Bilirubin Urine Urobilinogen Urine Leukocytes Urine WBC Ur Squamous Epith Cells Hyaline Casts Ur Culture Indicated? <DeuceJewel - Last Filed: 10/21/16 12:16> Cardiology - PN: Subj Interval history: Cardiology addendum Patient examined chart reviewed and discussed with nurse Lizzette Hassan RN. Feels a little better but still coughing and gets breathless getting up to the bathroom Telemetry has been benign. O2 sat 95 on 2 L cannula Decreased breath sounds with scattered rhonchi but no wheezing Regular rhythm no murmur or gallop Echo shows ejection fraction of 60% with grade 1 diastolic dysfunction, mild aortic stenosis and moderate TR, PA pressure 45 Plan Continue IV antibiotics nebs and steroids Exam (Progress Note) - Constitutional Vitals: Period Temp Pulse Resp BP Sys/Anderson Pulse Ox Last 24 Hr 97.3 F-98 F 90-107 18-21 116-149/42-96 91-100 Result/EKG - Labs CBC & BMP: 10/21/16 04:11 10/21/16 04:11 Labs: Laboratory Results - last 24 hr 10/20/16 10/20/16 10/20/16 12:47 16:11 20:20 WBC RBC Hgb Hct MCV MCH MCHC RDW Plt Count MPV Neut % (Auto) Lymph % (Auto) [place] % (Auto) Eos % (Auto) Baso % (Auto) Neut # (Auto) Lymph # (Auto) [place] # (Auto) Eos # (Auto) Baso # (Auto) Immature Gran % Nucleated RBC % Immature Gran # Nucleated RBCs # Platelet Estimate Hypochromasia Microcytosis Sodium Potassium Chloride Carbon Dioxide Anion Gap BUN Creatinine GFR Calculation BUN/Creatinine Ratio Glucose POC Glucose 217 H 133 H 169 H Calculated Osmolality Calcium Magnesium Total Creatine Kinase CK-MB (CK-2) CK and CKMB Interp Troponin I 10/21/16 10/21/16 10/21/16 04:11 04:11 07:20 WBC 13.7 H RBC 3.83 Hgb 11.4 L Hct 34.7 L MCV 90.6 MCH 30 MCHC 32.9 RDW 12.9 Plt Count 219 MPV 10.4 Neut % (Auto) 88.9 H Lymph % (Auto) 7.3 L [place] % (Auto) 3.0 Eos % (Auto) 0.0 Baso % (Auto) 0.1 Neut # (Auto) 12.1 H Lymph # (Auto) 1.0 L [place] # (Auto) 0.4 Eos # (Auto) 0.0 Baso # (Auto) 0.0 Immature Gran % 0.7 Nucleated RBC % 0.0 Immature Gran # 0.10 Nucleated RBCs # 0.00 Platelet Estimate Normal Hypochromasia 1+ Microcytosis 1+ Sodium 137 Potassium 3.8 Chloride 97 L Carbon Dioxide 34 H Anion Gap 9.8 BUN 16 Creatinine 0.70 GFR Calculation 89 BUN/Creatinine Ratio 22.00 H Glucose 178 H POC Glucose 157 H Calculated Osmolality 277.8 Calcium 8.4 L Magnesium 2.0 Total Creatine Kinase CK-MB (CK-2) CK and CKMB Interp Troponin I 10/21/16 10/21/16 08:19 11:32 WBC RBC Hgb Hct MCV MCH MCHC RDW Plt Count MPV Neut % (Auto) Lymph % (Auto) [place] % (Auto) Eos % (Auto) Baso % (Auto) Neut # (Auto) Lymph # (Auto) [place] # (Auto) Eos # (Auto) Baso # (Auto) Immature Gran % Nucleated RBC % Immature Gran # Nucleated RBCs # Platelet Estimate Hypochromasia Microcytosis Sodium Potassium Chloride Carbon Dioxide Anion Gap BUN Creatinine GFR Calculation BUN/Creatinine Ratio Glucose POC Glucose 177 H Calculated Osmolality Calcium Magnesium Total Creatine Kinase 225 H D CK-MB (CK-2) 6.0 H CK and CKMB Interp 2.7 Troponin I 0.768 H D
[2016-10-21] MEDS: LEVOFLOXACIN INJ 500 MG in PREMIX 1 EACH IV SCH (10:05)
[2016-10-21] MEDS: FUROSEMIDE 40 MG/4 ML VIAL IV SCH (10:06)
[2016-10-21] MEDS: amLODIPine 5 MG TABLET PO SCH (10:07)
[2016-10-21] MEDS: PANTOPRAZOLE 40 MG TABLET PO SCH (10:07)
[2016-10-21] MEDS: ASPIRIN EC 81 MG TABLET PO SCH (10:07)
[2016-10-21] MEDS: ENOXAPARIN 80 MG/0.8 ML SYRINGE SUBCUT SCH (10:07)
[2016-10-21] MEDS: INSULIN REGULAR 100 UNIT/ML SUBCUT SCH ×4 (10:13→22:16)
[2016-10-21] MEDS: LOSARTAN 50 MG TABLET PO SCH (10:13)
[2016-10-21] MEDS: ALBUTEROL/IPRATROPIUM 3 ML NEB RESP TX SCH ×4 (13:46→23:30)
[2016-10-21] MEDS: ATORVASTATIN 40 MG TABLET PO SCH (22:18)
[2016-10-21] MEDS: ACETAMINOPHEN 325 MG TABLET PO PRN (22:18)
[2016-10-22] MEDS: methylPREDNISolone SOD SUC 125 MG/2 ML VIAL IV SCH ×2 (05:29→09:21)
[2016-10-22 05:58] LABS: Basophils % 0.1 % (0.0-0.8); Hematocrit 35.8 VOL% (35.7-47.0); Hemoglobin 11.3 GM/DL (12.0-16.0); Immature Granulocytes % 0.9 %; Immature Granulocytes Absolute 0.12 #; Lymphocytes # 0.9 10*3/uL (1.4-4.0); Lymphocytes % 6.6 % (21.3-54.2); Mean Corpuscular HGB Conc 31.6 GM/DL (32-36); Mean Corpuscular Hemoglobin 29 PG (27-34); Mean Corpuscular Volume 90.6 FL (87-102); Mean Platelet Volume 10.4 FL (9.6-12.0); Monocytes # 0.4 10*3/uL (0.11-0.8); Monocytes % 2.9 % (1.7-12.7); Neutrophils % 89.5 % (38.7-73.9); Platelet Count 243 T/CUMM (130-400); Red Blood Count 3.95 MC/CUMM (3.8-5.5); White Blood Count 13.4 T/CUMM (4-12)
[2016-10-22 06:30] LABS: Calcium 8.5 MG/DL (8.5-10.1); Magnesium 2.3 MG/DL (1.8-2.4); Osmolality,Calculated 281.8 MOS/KG (273-304); Potassium 3.9 MMOL/L (3.5-5.1)
[2016-10-22] MEDS: ALBUTEROL/IPRATROPIUM 3 ML NEB RESP TX SCH ×3 (07:12→20:27)
[2016-10-22] MEDS: LOSARTAN 50 MG TABLET PO SCH (08:19)
[2016-10-22] MEDS: ASPIRIN EC 81 MG TABLET PO SCH (08:20)
[2016-10-22] MEDS: amLODIPine 5 MG TABLET PO SCH (08:20)
[2016-10-22] MEDS: PANTOPRAZOLE 40 MG TABLET PO SCH (08:20)
[2016-10-22] MEDS: FUROSEMIDE 40 MG/4 ML VIAL IV SCH (08:21)
[2016-10-22] MEDS: LEVOFLOXACIN INJ 500 MG in PREMIX 1 EACH IV SCH (08:24)
[2016-10-22] MEDS: ENOXAPARIN 80 MG/0.8 ML SYRINGE SUBCUT SCH (08:24)
[2016-10-22] MEDS: INSULIN REGULAR 100 UNIT/ML SUBCUT SCH ×4 (08:24→21:54)
--- NOTE | 2016-10-22 09:25 | Pulmonology Progress Note ---
Pulmonary - PN: Subj Interval history: Patient is an 86-year-old white lady that has a history of having hypertension and valvular heart disease and has had a component of heart failure in the past. She also may have some very mild COPD. She comes in with coughing and wheezing and looks like she is having a COPD exacerbation. She had a fairly good night and is breathing a little better. Steroids are making her nervous. She does not like taking insulin. She does feel like her coughing and wheezing are better. Exam (Progress Note) - Constitutional Vitals: Period Temp Pulse Resp BP Sys/Anderson Pulse Ox Last 24 Hr 97.4 F-98.5 F 90-108 16-108 102-136/51-80 91-99 Exam: General appearance: mild distress (She is alert and reasonably comfortable lying in bed. Her breathing is much better and she looks more comfortable.) - Head Head exam: Present: normal inspection, normocephalic - Eye Eye exam: Present: EOMI. Absent: scleral icterus Pupils: Present: NANCY - ENT ENT exam: Present: normal exam - Neck Neck exam: Present: normal inspection. Absent: lymphadenopathy, thyromegaly - Respiratory Respiratory exam: Present: She has fairly good breath sounds bilaterally and her lungs are much clearer with less wheezing. - Cardiovascular Cardiovascular exam: Present: regular rate and rhythm, systolic murmur (She has a soft systolic murmur). Absent: gallop, JVD - GI/Abdominal GI/Abdominal exam: Present: normal bowel sounds, soft. Absent: distended, organomegaly, tenderness - Extremities Exam Extremities exam: Absent: calf tenderness, edema - Neurological Exam Neurological exam: Present: alert, oriented X3, CN II-XII intact. Absent: motor sensory deficit - Psychiatric Psychiatric exam: Present: She is a little anxious on steroids. - Skin Skin exam: Present: warm, dry Results - Labs CBC & BMP: 10/22/16 05:31 10/22/16 05:31 Assessment and Plan (1) Acute exacerbation of chronic obstructive airways disease Status: Acute Assessment and plan: The patient comes in with acute bronchitis and exacerbation of her COPD. She has been started on antibiotics, steroids, and bronchodilator therapy. She now has some right middle lobe atelectasis. She has less wheezing now looks more comfortable. She is getting anxious on steroids and will cut back the dose. Will check a chest x-ray tomorrow. Overall she looks better. Current Visit: Yes (2) Hypertension Status: Acute Assessment and plan: She will continue with blood pressure medicines. Current Visit: Yes (3) Valvular heart disease Status: Acute Assessment and plan: She has had previous valvular heart disease but has been doing reasonably well lately. Her echo does not look too bad at present. She does not look like she is in heart failure at present. Current Visit: Yes
--- NOTE | 2016-10-22 10:19 | Cardiology Progress Note ---
<Lizzette Hassan - Last Filed: 10/22/16 10:12> Assessment and Plan (1) Acute exacerbation of chronic obstructive airways disease Status: Acute Assessment and plan: See plan of care listed below. Current Visit: Yes (2) Elevated troponin Status: Acute Current Visit: Yes (3) Congestive heart failure Status: Acute Assessment and plan: See plan of care listed below. Current Visit: Yes Qualifiers: Congestive heart failure type: diastolic Congestive heart failure chronicity: unspecified congestive heart failure chronicity Qualified Code(s) : I50.30 - Unspecified diastolic (congestive) heart failure (4) Valvular heart disease Status: Acute Assessment and plan: See plan of care listed below. Current Visit: Yes (5) Hypertension Status: Acute Assessment and plan: See plan of care listed below. Current Visit: Yes (6) Elevated glucose Status: Acute Assessment and plan: See plan of care listed below. Current Visit: Yes (7) Obesity Status: Acute Assessment and plan: See plan of care listed below. Current Visit: Yes (8) Former smoker Status: Acute Assessment and plan: See plan of care listed below. Current Visit: Yes (9) Leukocytosis Status: Acute Assessment and plan: See plan of care listed below. Current Visit: Yes (10) History of coronary artery disease Status: Chronic Assessment and plan: See plan of care listed below. Current Visit: Yes (11) Status post aorto-coronary artery bypass graft Status: Chronic Assessment and plan: See plan of care listed below. Current Visit: Yes (12) Acute bronchitis Status: Acute Assessment and plan: See plan of care listed below. Current Visit: Yes (13) Non-ST elevation CT (NSTEMI) Status: Acute Assessment and plan: See plan of care listed below. Current Visit: Yes (14) Mild aortic stenosis Status: Acute Assessment and plan: See plan of care listed below. Current Visit: Yes Cardiology - PN: Subj Interval history: [employer] Supervisor: Dr. Garrett PCP: Marisel Velazquez NP Senior Marketing Engineer: Dr. Erwin Faye SUMMARY Ms. Xiong is a 86 year old female with PMH of known history of CAD, hypertension, obesity, former smoker (quit in 1987), COPD and valvular heart disease. She reports that at her last appointment with Dr. Garrett, he informed her that she needed a valve replacement. However, she refused at that time due to her advanced age. She is status post CABG 1987 3. She is a poor historian and is unaware where her grafts are located. I have requested records from [facility]. She does not think that she has had heart catheterization since 1987. I have also requested records from Dr. Garrett's office and [facility]. Reports that she just saw Dr. Erwin Faye 2 weeks ago. She has never been seen by [facility]ology. Patient presented to [facility] October 19, 2016. She has been treated for COPD exacerbation, acute congestive heart failure and non- ST elevation CT. Troponin at admission was noted to be 1.720. It has since trended downward. Dr. Erwin Faye has been consulted for assistance in treating her COPD exacerbation. Plan for left heart catheterization when her breathing improves. OCTOBER 22, 2016 Patient was seen and examined on the telemetry unit. She is without complaints of chest pain, heaviness and tightness. Troponin is trending down. Her breathing has greatly improved since admission. However, she continues to have minimal wheezing. She is now agreeable to have heart catheterization this hospitalization. We will plan for this once her breathing returns to baseline and she is able to lie flat for procedure. She is being diuresed with IV Lasix. She is diuresing well with this. She has lost 1 pound overnight. Echocardiogram revealed LVEF 60%. Grade 1 diastolic dysfunction. Mild aortic stenosis. Mild to moderate MR. Mild TR. Overall, her vital signs have been stable. At this point, we will treat her non-ST elevation CT medically. I will further discuss with Dr. Tripathi and await his additional recommendations. ASSESSMENT/PLAN: 1. ACUTE COPD EXACERBATION - Continue IV steroid therapy, Levaquin and Atrovent. Dr. Erwin Faye is following. 2. CONGESTIVE HEART FAILURE, DIASTOLIC DYSFUNCTION - Echocardiogram yesterday revealed LVEF of 60% and grade 1 diastolic dysfunction. Patient is being diuresed with Lasix 40 mg IV daily. She is diuresing well with this. She has lost 1 pound overnight. Continue Lasix, daily weights and strict I's and O's. Plan for heart catheterization when patient is able to lie flat comfortably. 3. NON-ST ELEVATION CT -troponin is trending downward. Yesterday it was 0.768. Patient is without complaints of chest pain, heaviness and tightness. Continue ARB. Unable to initiate beta-jasbir as she is allergic. Continue lipid-lowering agent and aspirin. Repeat lipid panel in 6 weeks. Will plan for heart catheterization when patient is able to lie flat comfortably. 4. HISTORY OF CAD, STATUS POST CABG 1987 - Patient does have history of coronary artery bypass grafting 3 in 1987. She is unsure of where her grafts are located as she is a poor historian. 5. HYPERTENSION - Patient's home medications have been reinitiated. Will monitor her blood pressure and adjust as needed throughout her hospitalization. 6. FORMER SMOKER - Patient reports that she quit smoking in 1987. 7. OBESITY - Weight loss encouraged. 8. ELEVATED GLUCOSE - Most likely secondary to steroid therapy. Hemoglobin A1c 6.1. Continue to cover with sliding scale insulin while receiving IV steroids. 9. HISTORY OF VALVULAR HEART DISEASE, MILD AORTIC STENOSIS - Echocardiogram revealed LVEF 60%. Grade 1 diastolic dysfunction. Mild aortic stenosis. Mild to moderate MR. Mild TR. continue current plan of care. 10. LEUKOCYTOSIS - White blood cell count 13.4 with left shift. Afebrile overnight. Blood cultures reveal no growth at 1 day. UA negative. Continue IV Levaquin. 11. ACUTE BRONCHITIS - Management per Erwin Faye. Continue steroids, antibiotics and bronchodilator therapy. Exam (Progress Note) - Constitutional Vitals: Period Temp Pulse Resp BP Sys/Anderson Pulse Ox Last 24 Hr 97.4 F-98.5 F 90-108 16-108 102-136/51-80 91-99 Exam: General: Appears well with no apparent distress. Pleasant and cooperative. Appears comfortable. HEENT: PERRL, normocephalic, atraumatic. Mucous membranes moist. No jaundice noted. Conjunctiva moist and clear, sclerae anicteric Neck: No JVD/HJR, no thyromegaly or lymphadenopathy noted. Cardiac: Regular rate and rhythm. Grade 2 systolic murmur. Lungs: Breath sounds have improved since yesterday. Wheezing auscultated throughout. Requiring oxygen via nasal cannula. Abdomen: Soft, bowel sounds normoactive. Nontender and nondistended. No abdominal bruit or thrill noted. No masses noted. Extremities: No clubbing, cyanosis noted. Trace bilateral lower extremity edema. Upper extremity pulses 2+. Lower extremity pulses 2+. Capillary refill less than 3 seconds. Skin: No unusual lesions or rashes. No skin breakdown appreciated. Neuro: Awake, alert and oriented 3. Moves all extremities well without hemiparesis or paralysis. No essential tremor is appreciated. Result/EKG - Labs CBC & BMP: 10/22/16 05:31 10/22/16 05:31 Lab Results: I have reviewed the past 24 hour labs Labs: Laboratory Results - last 24 hr 10/21/16 10/21/16 10/21/16 11:32 15:44 19:51 WBC RBC Hgb Hct MCV MCH MCHC RDW Plt Count MPV Neut % (Auto) Lymph % (Auto) [place] % (Auto) Eos % (Auto) Baso % (Auto) Neut # (Auto) Lymph # (Auto) [place] # (Auto) Eos # (Auto) Baso # (Auto) Immature Gran % Nucleated RBC % Immature Gran # Nucleated RBCs # Sodium Potassium Chloride Carbon Dioxide Anion Gap BUN Creatinine GFR Calculation BUN/Creatinine Ratio Glucose POC Glucose 177 H 200 H 184 H Calculated Osmolality Calcium Magnesium 10/22/16 10/22/16 10/22/16 05:31 05:31 07:12 WBC 13.4 H RBC 3.95 Hgb 11.3 L Hct 35.8 MCV 90.6 MCH 29 MCHC 31.6 L RDW 13.0 Plt Count 243 MPV 10.4 Neut % (Auto) 89.5 H Lymph % (Auto) 6.6 L [place] % (Auto) 2.9 Eos % (Auto) 0.0 Baso % (Auto) 0.1 Neut # (Auto) 12.0 H Lymph # (Auto) 0.9 L [place] # (Auto) 0.4 Eos # (Auto) 0.0 Baso # (Auto) 0.0 Immature Gran % 0.9 Nucleated RBC % 0.0 Immature Gran # 0.12 Nucleated RBCs # 0.00 Sodium 137 Potassium 3.9 Chloride 97 L Carbon Dioxide 31 Anion Gap 12.9 BUN 30 H Creatinine 0.90 GFR Calculation 66 BUN/Creatinine Ratio 33.00 H Glucose 153 H POC Glucose 177 H Calculated Osmolality 281.8 Calcium 8.5 Magnesium 2.3 <Jewel Tripathi - Last Filed: 10/22/16 15:13> Cardiology - PN: Subj Interval history: Cardiology addendum Patient examined chart reviewed and discussed with nurse Lizzette Hassan RN. Feels much better today. Less cough. Appetite fair. No wheezing. Telemetry shows sinus rhythm in the 50s and 60s. Decreased breath sounds few basilar rhonchi but no wheezing. Regular rhythm faint systolic murmur. Faint bilateral carotid bruits left greater than right Abdomen benign. No leg edema. Echo Doppler shows ejection fraction of 55% with grade 1 diastolic dysfunction, mildly dilated left atrium, mitral valve sclerosis, aortic valve sclerosis, normal RV function, moderate TR PA pressure 45 with no effusion. Carotid duplex findings noted. Plan IV Solu-Medrol, nebs. Levofloxacin Monitor Watch BP Exam (Progress Note) - Constitutional Vitals: Period Temp Pulse Resp BP Sys/Anderson Pulse Ox Last 24 Hr 97.4 F-98.5 F 90-108 16-108 102-142/51-59 91-99 Result/EKG - Labs CBC & BMP: 10/22/16 05:31 10/22/16 05:31 Labs: Laboratory Results - last 24 hr 10/21/16 10/21/16 10/22/16 15:44 19:51 05:31 WBC 13.4 H RBC 3.95 Hgb 11.3 L Hct 35.8 MCV 90.6 MCH 29 MCHC 31.6 L RDW 13.0 Plt Count 243 MPV 10.4 Neut % (Auto) 89.5 H Lymph % (Auto) 6.6 L [place] % (Auto) 2.9 Eos % (Auto) 0.0 Baso % (Auto) 0.1 Neut # (Auto) 12.0 H Lymph # (Auto) 0.9 L [place] # (Auto) 0.4 Eos # (Auto) 0.0 Baso # (Auto) 0.0 Immature Gran % 0.9 Nucleated RBC % 0.0 Immature Gran # 0.12 Nucleated RBCs # 0.00 Sodium Potassium Chloride Carbon Dioxide Anion Gap BUN Creatinine GFR Calculation BUN/Creatinine Ratio Glucose POC Glucose 200 H 184 H Calculated Osmolality Calcium Magnesium 10/22/16 10/22/16 10/22/16 05:31 07:12 11:44 WBC RBC Hgb Hct MCV MCH MCHC RDW Plt Count MPV Neut % (Auto) Lymph % (Auto) [place] % (Auto) Eos % (Auto) Baso % (Auto) Neut # (Auto) Lymph # (Auto) [place] # (Auto) Eos # (Auto) Baso # (Auto) Immature Gran % Nucleated RBC % Immature Gran # Nucleated RBCs # Sodium 137 Potassium 3.9 Chloride 97 L Carbon Dioxide 31 Anion Gap 12.9 BUN 30 H Creatinine 0.90 GFR Calculation 66 BUN/Creatinine Ratio 33.00 H Glucose 153 H POC Glucose 177 H 192 H Calculated Osmolality 281.8 Calcium 8.5 Magnesium 2.3
[2016-10-22] MEDS: methylPREDNISolone SOD SUC 40 MG/1 ML VIAL IV SCH (17:29)
[2016-10-22] MEDS ORDERED: methylPREDNISolone SOD SUC 125 MG/2 ML VIAL IV SCH (17:30)
[2016-10-22] MEDS: ATORVASTATIN 40 MG TABLET PO SCH (21:38)
[2016-10-22] MEDS: ACETAMINOPHEN 325 MG TABLET PO PRN (21:40)
[2016-10-23] MEDS: ALBUTEROL/IPRATROPIUM 3 ML NEB RESP TX SCH ×4 (00:58→20:02)
[2016-10-23] MEDS: methylPREDNISolone SOD SUC 40 MG/1 ML VIAL IV SCH ×3 (01:41→17:17)
[2016-10-23] MEDS: ACETAMINOPHEN 325 MG TABLET PO PRN (01:41)
[2016-10-23 06:00] LABS: Basophils % 0.1 % (0.0-0.8); Hemoglobin 10.8 GM/DL (12.0-16.0); Immature Granulocytes % 1.2 %; Immature Granulocytes Absolute 0.13 #; Lymphocytes # 0.7 10*3/uL (1.4-4.0); Lymphocytes % 6.2 % (21.3-54.2); Mean Corpuscular HGB Conc 32.7 GM/DL (32-36); Mean Corpuscular Hemoglobin 29 PG (27-34); Mean Corpuscular Volume 89.4 FL (87-102); Mean Platelet Volume 10.6 FL (9.6-12.0); Monocytes # 0.4 10*3/uL (0.11-0.8); Monocytes % 3.9 % (1.7-12.7); Neutrophils # 9.4 10*3/uL (1.4-7.4); Neutrophils % 88.6 % (38.7-73.9); Platelet Count 232 T/CUMM (130-400); Red Blood Count 3.69 MC/CUMM (3.8-5.5); White Blood Count 10.6 T/CUMM (4-12)
[2016-10-23 06:15] LABS: Calcium 8.2 MG/DL (8.5-10.1); Magnesium 2.4 MG/DL (1.8-2.4); Potassium 3.6 MMOL/L (3.5-5.1)
[2016-10-23 06:28] LABS: Troponin I Only 0.564 NG/ML (0.00-0.045)
--- NOTE | 2016-10-23 07:35 | XRay Report ---
History: Shortness of breath Date: 10/23/2016 Study: Chest x-ray AP portable Comparison exam: October 21, 2016 There is cardiomegaly. The pulmonary vasculature is slightly engorged. The mediastinal contours are otherwise unchanged in this patient status post prior median sternotomy. There is some atelectatic parenchymal consolidation in the right lower lung as before. There is no gross pleural effusion. Osseous structures are unchanged. Impression: Developing congestive heart failure. Atelectatic parenchymal consolidation right mid to lower lung PROCEDURE INTERPRETED AT [facility] ([facility] DEPARTMENT OF RADIOLOGY Final Report Signed by: Dr. Jossie Sanders
[2016-10-23] MEDS: LOSARTAN 50 MG TABLET PO SCH (08:19)
[2016-10-23] MEDS: FUROSEMIDE 40 MG/4 ML VIAL IV SCH (08:19)
[2016-10-23] MEDS: PANTOPRAZOLE 40 MG TABLET PO SCH (08:19)
[2016-10-23] MEDS: ASPIRIN EC 81 MG TABLET PO SCH (08:19)
[2016-10-23] MEDS: amLODIPine 5 MG TABLET PO SCH (08:19)
[2016-10-23] MEDS: ENOXAPARIN 80 MG/0.8 ML SYRINGE SUBCUT SCH (08:23)
[2016-10-23] MEDS: LEVOFLOXACIN INJ 500 MG in PREMIX 1 EACH IV SCH (08:26)
[2016-10-23] MEDS: INSULIN REGULAR 100 UNIT/ML SUBCUT SCH ×4 (08:26→21:23)
--- NOTE | 2016-10-23 09:33 | Pulmonology Progress Note ---
Pulmonary - PN: Subj Interval history: Patient is an 86-year-old white lady that has a history of having hypertension and valvular heart disease and has had a component of heart failure in the past. She also may have some very mild COPD. She comes in with coughing and wheezing and looks like she is having a COPD exacerbation. She had positive enzymes and is felt to have a non-ST elevation TN. Her heart rate and blood pressure are little more stable. She says she had a good night and she feels like her breathing is much better. Her coughing and wheezing have improved. She is not having any chest pain. Her heart rate is been stable. Overall she is feeling much better. Exam (Progress Note) - Constitutional Vitals: Period Temp Pulse Resp BP Sys/Anderson Pulse Ox Last 24 Hr 96.3 F-98 F 72-102 17-20 99-142/44-64 92-97 Exam: General appearance: no distress (She is alert and looks more comfortable and is resting in bed. ) - Head Head exam: Present: normal inspection, normocephalic - Eye Eye exam: Present: EOMI. Absent: scleral icterus Pupils: Present: NANCY - ENT ENT exam: Present: normal exam - Neck Neck exam: Present: normal inspection. Absent: lymphadenopathy, thyromegaly - Respiratory Respiratory exam: Present: She has fairly good breath sounds bilaterally and her lungs are much clearer with less wheezing. She is moving air well and her lungs sound better. - Cardiovascular Cardiovascular exam: Present: regular rate and rhythm, systolic murmur (She has a soft systolic murmur). Absent: gallop, JVD - GI/Abdominal GI/Abdominal exam: Present: normal bowel sounds, soft. Absent: distended, organomegaly, tenderness - Extremities Exam Extremities exam: Absent: calf tenderness, edema - Neurological Exam Neurological exam: Present: alert, oriented X3, CN II-XII intact. Absent: motor sensory deficit - Psychiatric Psychiatric exam: Present: She looks much calmer today. - Skin Skin exam: Present: warm, dry Results - Labs CBC & BMP: 10/23/16 05:24 10/23/16 05:24 - Diagnostic Findings Procedure: Chest x-ray: image reviewed by me, report reviewed by me (Chest x- ray shows cardiomegaly with improvement of the right middle lobe atelectasis. There is no overt heart failure now.) Assessment and Plan (1) Acute exacerbation of chronic obstructive airways disease Status: Acute Assessment and plan: The patient comes in with acute bronchitis and exacerbation of her COPD. She has been started on antibiotics, steroids, and bronchodilator therapy. She now has some right middle lobe atelectasis. She is feeling better today and her wheezing has improved. Her chest x-ray looks a little better also. She will continue with respiratory therapy. Current Visit: Yes (2) Hypertension Status: Acute Assessment and plan: She will continue with blood pressure medicines. Current Visit: Yes (3) Valvular heart disease Status: Acute Assessment and plan: She has had previous valvular heart disease but has been doing reasonably well lately. Her echo does not look too bad at present. She does not look like she is in heart failure at present. Current Visit: Yes
--- NOTE | 2016-10-23 11:26 | Cardiology Progress Note ---
<Lizzette Hassan - Last Filed: 10/23/16 11:07> Assessment and Plan (1) Acute exacerbation of chronic obstructive airways disease Status: Acute Assessment and plan: See plan of care listed below. Current Visit: Yes (2) Elevated troponin Status: Acute Current Visit: Yes (3) Congestive heart failure Status: Acute Assessment and plan: See plan of care listed below. Current Visit: Yes Qualifiers: Congestive heart failure type: diastolic Congestive heart failure chronicity: unspecified congestive heart failure chronicity Qualified Code(s) : I50.30 - Unspecified diastolic (congestive) heart failure (4) Valvular heart disease Status: Acute Assessment and plan: See plan of care listed below. Current Visit: Yes (5) Hypertension Status: Acute Assessment and plan: See plan of care listed below. Current Visit: Yes (6) Elevated glucose Status: Acute Assessment and plan: See plan of care listed below. Current Visit: Yes (7) Obesity Status: Acute Assessment and plan: See plan of care listed below. Current Visit: Yes (8) Former smoker Status: Acute Assessment and plan: See plan of care listed below. Current Visit: Yes (9) Leukocytosis Status: Acute Assessment and plan: See plan of care listed below. Current Visit: Yes (10) History of coronary artery disease Status: Chronic Assessment and plan: See plan of care listed below. Current Visit: Yes (11) Status post aorto-coronary artery bypass graft Status: Chronic Assessment and plan: See plan of care listed below. Current Visit: Yes (12) Acute bronchitis Status: Acute Assessment and plan: See plan of care listed below. Current Visit: Yes (13) Non-ST elevation GA (NSTEMI) Status: Acute Assessment and plan: See plan of care listed below. Current Visit: Yes (14) Mild aortic stenosis Status: Acute Assessment and plan: See plan of care listed below. Current Visit: Yes Cardiology - PN: Subj Interval history: Milling Planer Operator: Dr. Garrett PCP: Marisel Velazquez NP Stem Frazer: Dr. Erwin Faye SUMMARY Ms. Xiong is a 86 year old female with PMH of known history of CAD, hypertension, obesity, former smoker (quit in 1987), COPD and valvular heart disease. She reports that at her last appointment with Dr. Garrett, he informed her that she needed a valve replacement. However, she refused at that time due to her advanced age. She is status post CABG 1987 3. She is a poor historian and is unaware where her grafts are located. I have requested records from [facility]. She does not think that she has had heart catheterization since 1987. I have also requested records from Dr. Garrett's office and [facility]. Reports that she just saw Dr. Erwin Faye 2 weeks ago. She has never been seen by [facility]ology. Patient presented to [facility] October 19, 2016. She has been treated for COPD exacerbation, acute congestive heart failure and non- ST elevation GA. Troponin at admission was noted to be 1.720. It has since trended downward. Dr. Erwin Faye has been consulted for assistance in treating her COPD exacerbation. Plan for left heart catheterization when her breathing improves. OCTOBER 23, 2016 Patient was seen and examined on the telemetry unit. She is without complaints of chest pain, heaviness and tightness. Troponin is trending down, today 0.564. Patient's breathing has continued to significantly improve daily. Just prior to examination, patient had a breathing treatment. No wheezing auscultated. She continues to have productive cough however it has improved. Plan to have heart catheterization. This could possibly be done tomorrow. I will discuss with Dr. Tripathi. She continues to be diuresed with IV Lasix. She is diuresing well and has lost 5 pounds since admission. Echocardiogram revealed LVEF 60%. Grade 1 diastolic dysfunction. Mild aortic stenosis. Mild to moderate MR. Mild TR. Overall, her vital signs have been stable. Vital signs are stable. Labs been reviewed. I will discuss with Dr. Tripathi and await his additional recommendations regarding timing of her heart catheterization. ASSESSMENT/PLAN: 1. ACUTE COPD EXACERBATION - Continue IV steroid therapy, Levaquin and Atrovent. Dr. Erwin Faye is following. 2. CONGESTIVE HEART FAILURE, DIASTOLIC DYSFUNCTION - Echocardiogram revealed LVEF of 60% and grade 1 diastolic dysfunction. Patient is being diuresed with Lasix 40 mg IV daily. She continues to diurese well, lost 5 pounds since admission. Continue Lasix, daily weights and strict I's and O's. Plan for heart catheterization in order to define her coronary anatomy when patient is able to lie flat comfortably. 3. NON-ST ELEVATION GA - Troponin is trending downward. Today 0.564. Patient is without complaints of chest pain, heaviness and tightness. Continue ARB. Unable to initiate beta-jasbir as she is allergic. Continue lipid- lowering agent and aspirin. Repeat lipid panel in 6 weeks. Will plan for heart catheterization when patient is able to lie flat comfortably. 4. HISTORY OF CAD, STATUS POST CABG 1987 - Patient does have history of coronary artery bypass grafting 3 in 1987. She is unsure of where her grafts are located as she is a poor historian. 5. HYPERTENSION - Patient's home medications have been reinitiated. Will monitor her blood pressure and adjust as needed throughout her hospitalization. 6. FORMER SMOKER - Patient reports that she quit smoking in 1987. 7. OBESITY - Weight loss encouraged. 8. ELEVATED GLUCOSE - Controlled. Most likely secondary to steroid therapy. Hemoglobin A1c 6.1. Continue to cover with sliding scale insulin while receiving IV steroids. 9. HISTORY OF VALVULAR HEART DISEASE, MILD AORTIC STENOSIS - Echocardiogram revealed LVEF 60%. Grade 1 diastolic dysfunction. Mild aortic stenosis. Mild to moderate MR. Mild TR. continue current plan of care. 10. LEUKOCYTOSIS - Resolved 11. ACUTE BRONCHITIS - Management per Erwin Faye. Continue steroids, antibiotics and bronchodilator therapy. Exam (Progress Note) - Constitutional Vitals: Period Temp Pulse Resp BP Sys/Anderson Pulse Ox Last 24 Hr 96.3 F-98 F 72-102 17-20 99-142/44-64 92-97 Exam: General: Appears well with no apparent distress. Pleasant and cooperative. Appears comfortable. HEENT: PERRL, normocephalic, atraumatic. Mucous membranes moist. No jaundice noted. Conjunctiva moist and clear, sclerae anicteric Neck: No JVD/HJR, no thyromegaly or lymphadenopathy noted. Cardiac: Regular rate and rhythm. Grade 2 systolic murmur. Lungs: Breath sounds have improved no wheezing or rhonchi auscultated. Requiring oxygen via nasal cannula. Abdomen: Soft, bowel sounds normoactive. Nontender and nondistended. No abdominal bruit or thrill noted. No masses noted. Extremities: No clubbing, cyanosis noted. Trace bilateral lower extremity edema. Upper extremity pulses 2+. Lower extremity pulses 2+. Capillary refill less than 3 seconds. Skin: No unusual lesions or rashes. No skin breakdown appreciated. Neuro: Awake, alert and oriented 3. Moves all extremities well without hemiparesis or paralysis. No essential tremor is appreciated. Result/EKG - Labs CBC & BMP: 10/23/16 05:24 10/23/16 05:24 Lab Results: I have reviewed the past 24 hour labs Labs: Laboratory Results - last 24 hr 10/22/16 10/22/16 10/22/16 11:44 16:14 20:08 WBC RBC Hgb Hct MCV MCH MCHC RDW Plt Count MPV Neut % (Auto) Lymph % (Auto) [place] % (Auto) Eos % (Auto) Baso % (Auto) Neut # (Auto) Lymph # (Auto) [place] # (Auto) Eos # (Auto) Baso # (Auto) Immature Gran % Nucleated RBC % Immature Gran # Nucleated RBCs # Sodium Potassium Chloride Carbon Dioxide Anion Gap BUN Creatinine GFR Calculation BUN/Creatinine Ratio Glucose POC Glucose 192 H 236 H 244 H Calculated Osmolality Calcium Magnesium Total Creatine Kinase CK-MB (CK-2) Troponin I 10/23/16 10/23/16 10/23/16 05:24 05:24 05:24 WBC 10.6 RBC 3.69 L Hgb 10.8 L Hct 33.0 L MCV 89.4 MCH 29 MCHC 32.7 RDW 13.0 Plt Count 232 MPV 10.6 Neut % (Auto) 88.6 H Lymph % (Auto) 6.2 L [place] % (Auto) 3.9 Eos % (Auto) 0.0 Baso % (Auto) 0.1 Neut # (Auto) 9.4 H Lymph # (Auto) 0.7 L [place] # (Auto) 0.4 Eos # (Auto) 0.0 Baso # (Auto) 0.0 Immature Gran % 1.2 Nucleated RBC % 0.0 Immature Gran # 0.13 Nucleated RBCs # 0.00 Sodium 136 Potassium 3.6 Chloride 98 Carbon Dioxide 31 Anion Gap 10.6 BUN 29 H Creatinine 0.80 GFR Calculation 76 BUN/Creatinine Ratio 36.00 H Glucose 165 H POC Glucose Calculated Osmolality 281.0 Calcium 8.2 L Magnesium 2.4 Total Creatine Kinase 98 D CK-MB (CK-2) 4.0 H Troponin I 0.564 H D 10/23/16 07:45 WBC RBC Hgb Hct MCV MCH MCHC RDW Plt Count MPV Neut % (Auto) Lymph % (Auto) [place] % (Auto) Eos % (Auto) Baso % (Auto) Neut # (Auto) Lymph # (Auto) [place] # (Auto) Eos # (Auto) Baso # (Auto) Immature Gran % Nucleated RBC % Immature Gran # Nucleated RBCs # Sodium Potassium Chloride Carbon Dioxide Anion Gap BUN Creatinine GFR Calculation BUN/Creatinine Ratio Glucose POC Glucose 154 H Calculated Osmolality Calcium Magnesium Total Creatine Kinase CK-MB (CK-2) Troponin I <Jewel Tripathi - Last Filed: 10/23/16 14:07> Cardiology - PN: Subj Interval history: Cardiology addendum 86-year-old woman admitted with pneumonia and CHF and non-Q-wave GA. No fever. Decreased cough. O2 sat 96% on 2 L. Regular rhythm with 2/6 systolic ejection murmur upper right sternal border no gallop Decreased breath sounds bibasilar rhonchi Abdomen benign Femoral pulses 2+ and deep 2+ distal pulses Lab data today White count 10.6 hemoglobin 10.8 hematocrit 33.3 Sodium 136 potassium 3.6 chloride 98 CO2 31 BUN 29 creatinine 0.80 BNP level 305 Peak troponin I 0.720 Impression Pneumonia Superimposed CHF with small non-Q-wave GA peak troponin 1.720 Status post three-vessel CABG 1987 [facility] Hypertension Obesity Echo October 20 showed ejection fraction 60% with grade 1 diastolic dysfunction, moderate dilated left atrium, mitral annular calcification with mild MR, aortic valve sclerosis with a 15 mm gradient normal RV function and moderate TR PA pressure 45-50 and no effusion Plan Antibiotics and nebs Heart cath tomorrow. Procedure risk benefits reviewed. All questions answered. She agrees proceed as outlined. Exam (Progress Note) - Constitutional Vitals: Period Temp Pulse Resp BP Sys/Anderson Pulse Ox Last 24 Hr 96.3 F-98 F 72-102 17-20 99-124/44-64 92-97 Result/EKG - Labs CBC & BMP: 10/23/16 05:24 10/23/16 05:24 Labs: Laboratory Results - last 24 hr 10/22/16 10/22/16 10/23/16 16:14 20:08 05:24 WBC RBC Hgb Hct MCV MCH MCHC RDW Plt Count MPV Neut % (Auto) Lymph % (Auto) [place] % (Auto) Eos % (Auto) Baso % (Auto) Neut # (Auto) Lymph # (Auto) [place] # (Auto) Eos # (Auto) Baso # (Auto) Immature Gran % Nucleated RBC % Immature Gran # Nucleated RBCs # Sodium Potassium Chloride Carbon Dioxide Anion Gap BUN Creatinine GFR Calculation BUN/Creatinine Ratio Glucose POC Glucose 236 H 244 H Calculated Osmolality Calcium Magnesium Total Creatine Kinase 98 D CK-MB (CK-2) 4.0 H Troponin I 0.564 H D 10/23/16 10/23/16 10/23/16 05:24 05:24 07:45 WBC 10.6 RBC 3.69 L Hgb 10.8 L Hct 33.0 L MCV 89.4 MCH 29 MCHC 32.7 RDW 13.0 Plt Count 232 MPV 10.6 Neut % (Auto) 88.6 H Lymph % (Auto) 6.2 L [place] % (Auto) 3.9 Eos % (Auto) 0.0 Baso % (Auto) 0.1 Neut # (Auto) 9.4 H Lymph # (Auto) 0.7 L [place] # (Auto) 0.4 Eos # (Auto) 0.0 Baso # (Auto) 0.0 Immature Gran % 1.2 Nucleated RBC % 0.0 Immature Gran # 0.13 Nucleated RBCs # 0.00 Sodium 136 Potassium 3.6 Chloride 98 Carbon Dioxide 31 Anion Gap 10.6 BUN 29 H Creatinine 0.80 GFR Calculation 76 BUN/Creatinine Ratio 36.00 H Glucose 165 H POC Glucose 154 H Calculated Osmolality 281.0 Calcium 8.2 L Magnesium 2.4 Total Creatine Kinase CK-MB (CK-2) Troponin I 10/23/16 11:17 WBC RBC Hgb Hct MCV MCH MCHC RDW Plt Count MPV Neut % (Auto) Lymph % (Auto) [place] % (Auto) Eos % (Auto) Baso % (Auto) Neut # (Auto) Lymph # (Auto) [place] # (Auto) Eos # (Auto) Baso # (Auto) Immature Gran % Nucleated RBC % Immature Gran # Nucleated RBCs # Sodium Potassium Chloride Carbon Dioxide Anion Gap BUN Creatinine GFR Calculation BUN/Creatinine Ratio Glucose POC Glucose 170 H Calculated Osmolality Calcium Magnesium Total Creatine Kinase CK-MB (CK-2) Troponin I
[2016-10-23] MEDS ORDERED: MAGNESIUM SULF RIDER 2 GM in PREMIX 1 EACH IV PRN (13:53)
[2016-10-23] MEDS ORDERED: POTASSIUM CHLORIDE RIDER 10 MEQ in PREMIX 1 EACH IV PRN (13:53)
--- NOTE | 2016-10-23 14:08 | History and Physical Update ---
Sedation H&P Update - History and Physical H&P was reviewed, the patient examined and there: are no changes in the patients condition since last H&P was completed. - Dictation Physical: refer to H&P completed by admitting physician - Physical Exam Mental Status: alert and oriented Heart: regular rate and rhythm Lung: clear to auscultation Abdomen: within normal limits Vitals: within normal limits - Sedation Plan for Sedation: moderate Patient Consent: Procedure disscussed with patient and patinet has consented., Risks and benefits were discussed with patient,including infection,, bleeding, injury to surrounding structures, seizure, temporary nerve, Patient understands and accepts potential risks/benefits and agrees to, proceed. ASA Class: II Airway Assessment: Class II: Soft palate, uvula, fauces visible
[2016-10-23] MEDS: ATORVASTATIN 40 MG TABLET PO SCH (21:25)
[2016-10-24] MEDS: ALBUTEROL/IPRATROPIUM 3 ML NEB RESP TX SCH ×4 (00:58→19:50)
[2016-10-24] MEDS: methylPREDNISolone SOD SUC 40 MG/1 ML VIAL IV SCH ×3 (02:05→17:57)
[2016-10-24 06:41] LABS: Basophils % 0.1 % (0.0-0.8); Hematocrit 34.5 VOL% (35.7-47.0); Hemoglobin 11.3 GM/DL (12.0-16.0); Immature Granulocytes % 2.9 %; Immature Granulocytes Absolute 0.31 #; Lymphocytes # 0.7 10*3/uL (1.4-4.0); Lymphocytes % 6.4 % (21.3-54.2); Mean Corpuscular HGB Conc 32.8 GM/DL (32-36); Mean Corpuscular Hemoglobin 29 PG (27-34); Mean Corpuscular Volume 89.6 FL (87-102); Mean Platelet Volume 10.5 FL (9.6-12.0); Monocytes # 0.5 10*3/uL (0.11-0.8); Monocytes % 4.7 % (1.7-12.7); Neutrophils # 9.2 10*3/uL (1.4-7.4); Neutrophils % 85.9 % (38.7-73.9); Platelet Count 242 T/CUMM (130-400); Red Blood Count 3.85 MC/CUMM (3.8-5.5); White Blood Count 10.7 T/CUMM (4-12)
[2016-10-24 06:59] LABS: INR 1.1; PT Patient Result 12.2 SECS; Partial Thromboplastin Time 36.4 SECS (0-40)
[2016-10-24 07:06] LABS: Calcium 8.4 MG/DL (8.5-10.1); Magnesium 2.5 MG/DL (1.8-2.4); Osmolality,Calculated 285.4 MOS/KG (273-304); Potassium 3.5 MMOL/L (3.5-5.1)
[2016-10-24] MEDS: amLODIPine 5 MG TABLET PO SCH ×2 (07:06→09:48)
[2016-10-24] MEDS: LOSARTAN 50 MG TABLET PO SCH ×2 (07:06→09:48)
[2016-10-24] MEDS: ASPIRIN EC 81 MG TABLET PO SCH ×2 (07:07→09:48)
[2016-10-24] MEDS: ENOXAPARIN 80 MG/0.8 ML SYRINGE SUBCUT SCH ×2 (07:07→09:48)
[2016-10-24] MEDS: PANTOPRAZOLE 40 MG TABLET PO SCH ×2 (07:07→09:48)
--- NOTE | 2016-10-24 07:10 | History and Physical Update ---
Sedation H&P Update - History and Physical H&P was reviewed, the patient examined and there: are no changes in the patients condition since last H&P was completed. - Dictation Physical: refer to H&P completed by admitting physician - Physical Exam Mental Status: alert and oriented Heart: regular rate and rhythm Lung: clear to auscultation Abdomen: within normal limits Vitals: within normal limits - Sedation Plan for Sedation: minimal Patient Consent: Procedure disscussed with patient and patinet has consented., Risks and benefits were discussed with patient,including infection,, bleeding, injury to surrounding structures, seizure, temporary nerve, Patient understands and accepts potential risks/benefits and agrees to, proceed. ASA Class: III Airway Assessment: Class III: Soft palate, base of uvula visible
[2016-10-24] MEDS ORDERED: HEPARIN/NACL 0.9% 2 UNITS/ML 1,000 ML IV ONE (07:11)
[2016-10-24] MEDS ORDERED: LIDOCAINE 1% 20 ML VIAL ONE (07:11)
[2016-10-24] MEDS ORDERED: NITROGLYCERIN DRIP 0 MG/0 ML BOTTLE IV ONE (07:11)
[2016-10-24] MEDS ORDERED: VERAPAMIL 5 MG/2 ML VIAL ONE (07:11)
--- NOTE | 2016-10-24 07:11 | XRay Report ---
Exam: XR chest 2V Date: 10/24/2016 4:00 AM Indication: Chest pain Comparison: 10/23/2016 Technical: AP portable Findings: Cardiomegaly present with previous sternotomy. Underlying COPD and scarring is present with platelike [place] change infiltrate or scarring in the right base. There is some Pleural diaphragmatic reaction of the right base. Previous vertebral plasty is also suspected thoracolumbar junction. Surgical clips right upper quadrant. Oxygen tubing superimposes exam. Impression: 1. Minimal fluid suspected along the minor fissure right chest this suggests possible mild cardiac decompensation superimposed on COPD changes 2. Previous vertebral plasty. PROCEDURE INTERPRETED AT [facility] DEPARTMENT OF RADIOLOGY Final Report Signed by: Dr. Jarad Yanes
[2016-10-24 07:36] LABS: Band Neutrophils 2 % (0-10); Hypochromasia 2+; Lymphocytes 9 % (20-55); Segmented Neutrophils 85 % (50-85); Total Cells Counted 100
[2016-10-24 07:37] LABS: Microcytosis 1+; Platelet Estimate Normal
[2016-10-24] MEDS ORDERED: fentaNYL 100 MCG/2 ML VIAL ONE (07:45)
[2016-10-24] MEDS ORDERED: MIDAZOLAM 2 MG/2 ML VIAL ONE (07:45)
[2016-10-24] MEDS ORDERED: diphenhydrAMINE CAP 25 MG CAPSULE PO ONE (08:00)
[2016-10-24] MEDS ORDERED: DIAZEPAM 5 MG TABLET PO ONE (08:00)
[2016-10-24] MEDS ORDERED: BIVALIRUDIN 250 MG VIAL IV ONE (08:13)
[2016-10-24] MEDS ORDERED: HEPARIN/NACL 0.9% 2 UNITS/ML 500 ML IV ONE (08:40)
[2016-10-24] MEDS ORDERED: CLOPIDOGREL 300 MG TABLET PO ONE (09:04)
[2016-10-24] MEDS ORDERED: CLOPIDOGREL 300 MG TABLET ONE (09:04)
--- NOTE | 2016-10-24 09:07 | Cardiac Catheterization ---
Date of Procedure:: 10/24/16 Pre-op Diagnosis: Non-ST elevation myocardial infarction Post-op diagnosis: other (Severe three-vessel coronary disease with inadequate revascularization please see body of note below status post PCI of the ostial proximal vein graft to the right coronary artery with a 4.5 x 13 mm Ultra bare metal stent postdilated to 16 chad with a 4.5 x 12 mm NC Quantum balloon) Procedure: Procedures: 1. Left heart catheterization resting hemodynamics 2. Selective left and right coronary angiography 3. Saphenous vein graft injection 2 (SVG to RCA and SVG to left circumflex system). SVG to circumflex system is 100% occluded proximally 4. Selective left subclavian angiography with visualization of the YULISSA to the LAD as an arterial conduit in situ After consent was taken from the patient. Taken to the catheterization lab for left heart catheterization via the femoral artery. Time out was taken and recorded. 1% lidocaine was infiltrated in the skin and subcutaneous tissue overlying the right femoral artery. Modified Seldinger technique and an 18- gauge PlaceVine needle was used for access to the right femoral artery. An 0.35 J- wire was advanced through the needle into the central aorta under fluoroscopy. A small skin was made and a 6 [place] sheath was placed over the wire. The sheath was aspirated and flushed. A JL46 was advanced over the wires in the left main coronary artery was selectively engaged. Multiple orthogonal views of the left system were obtained. The catheter was then exchanged over the wire. The sheath was aspirated and flushed. A JR4 catheter was advanced over the wire into the central aorta. The right coronary was selectively engaged and orthogonal views of the right coronary artery were obtained. The catheter was then exchanged over the wire, the sheath was aspirated and flushed. The JR4 catheter was used to engage a saphenous vein graft left circumflex system was demonstrated to be occluded proximally. The JR4 was also used to engage a saphenous vein graft to the RCA but was not well seated for angiography. The catheter was pulled back and in the left subclavian was selectively engaged multiple orthogonal views were obtained of the YULISSA to the LAD. This was a nonselective injection due to tortuosity. The catheter was then exchanged over the wire. The sheath was aspirated and flushed. At this time an angled pigtail catheter was advanced across the aortic valve into the ventricle. Pressure measurements were obtained and pullback measurements were performed. At this time a diagnostic MPA catheter was used to try to selectively engage the vein graft to the RCA this was unsuccessful was exchanged for an AL-1 which could engage nicely orthogonal views were obtained. The patient received Lovenox the patient was not on dual antiplatelet therapy the room was set up for the intervention mode and Angiomax was given for anticoagulation. At At this time and MPB guide was attempted to engage the saphenous vein graft to the RCA was unsuccessful and AL-1 was very successful but had inappropriate angulation for wiring. AL 0.75 also was unsuccessful ultimately an AR mod guide was used to have acceptable seating for PCI. A CT had been checked and was greater than 300 seconds at 311 seconds. At this time a filter wire was advanced into the body of the graft distal to the stenosis. It was deployed. This was followed by direct stenting with a 4.5 x 13 mm ultra bare-metal stent. There is acceptable angiographic result no evidence of distal embolization. There was residual stenosis that was felt to be requiring additional attention. Stent balloon was removed and ultimately a 4.5 x 12 mm NC Quantum was placed inside the stent and taken to 16 chad there was yielding was very nice result. Pre-PCI was 80% stenosis with ELVIA-3 flow post PCI was less than 10% residual stenosis with ELVIA-3 flow. The wire was removed orthogonal views were obtained. The automatic coil machine operator reviewed the films. The sheath was aspirated and flushed and a right femoral and iliac angiography was performed. The access site was amenable for closure with Mynx closure device. The right groin was re-prepped with ChloraPrep and draped with sterile towels. The Mynx closure device was used in standard technique. There was no hematoma and distal pulses were good. Total fluoroscopy time was 24.04 minutes total x-ray exposure 1382 mGy. Total contrast exposure 290 cc of Omnipaque FINDINGS: LV: 135/19 LVEDP: 20 Ao:130/65 EF: Not assessed LM: This is normal size vessel has approximately 60% very distal stenosis just before the bifurcation. LAD: The [place] LAD is 100% occluded in the very proximal segment. The portion supplied by the YULISSA is a small diffusely diseased vessel with no high-grade focal stenosis it is very small and diffusely diseased. YULISSA to the LAD is a very nice vessel anastomosis is nice there is no atheroma in the vessel LCx: This is a nondominant vessel. It is diffusely diseased from its inception and leaving of the left main. It is diffusely diseased and 50 to 80% stenosis throughout its entire course in the AV groove portion. There is a very small first obtuse marginal that has a 90% stenosis at the ostial segment Saphenous vein graft to the left circumflex is 100% occluded proximally RCA: The RCA is 100% occluded proximally just after the takeoff of the conus Saphenous vein graft to the RCA has focal discrete 80% eccentric stenosis and the very proximal segment. There is also diffuse 40-50% stenosis in the distal segment before the anastomosis and what appears to be the crux and takeoff of the PDA. The remainder of the RCA supplied by this vein graft is small but has no focal high-grade stenosis RFA/STEPHANIE: The iliac artery has mild disease the right femoral artery and profunda are severely diseased with significant calcification. The area at the access point is below the bifurcation heavily calcified. Is not amenable for closure with Angioseal. Closure was successful with mynx. Assessment: 1. Severe three-vessel coronary disease as described above with inadequate revascularization and vein graft failure as described above status post successful PCI of the proximal and ostial portion of the saphenous vein graft to the RCA with bare-metal stent as described with excellent angiographic result and preserved flow with no evidence of complications 2. Less than ideal contrast exposure monitor for renal insufficiency in this lady with advanced age PLAN: 1. Monitor in the ICU for complications 2. Serial cardiac biomarkers 3. Medical therapy including BRISA inhibitor statin and aspirin dual antiplatelet therapy. The patient had a non-ST elevation myocardial infarction but a test and allergy to beta-blockers no beta-blockers. This is contraindicated 4. Cardiac rehabilitation Implants: 4.5 x 13 mm Ultra bare-metal stent Mynx closure device Anesthesia: minimal conscious sedation Surgeon / Physician: Shakira Garcia Data Technical Lead: none Estimated blood loss: none Specimens: none sent Condition: stable Disposition: ICU/CCU - Medications / Follow-up
[2016-10-24] MEDS ORDERED: SODIUM CHLORIDE 0.45% 1,000 ML IV SCH (09:30)
[2016-10-24] MEDS: INSULIN REGULAR 100 UNIT/ML SUBCUT SCH ×4 (09:47→21:26)
[2016-10-24] MEDS: LEVOFLOXACIN INJ 500 MG in PREMIX 1 EACH IV SCH (10:21)
--- NOTE | 2016-10-24 11:47 | Pulmonology Progress Note ---
Pulmonary - PN: Subj Interval history: Patient is an 86-year-old white lady that has a history of having hypertension and valvular heart disease and has had a component of heart failure in the past. She also may have some very mild COPD. She comes in with coughing and wheezing and looks like she is having a COPD exacerbation. She had positive enzymes and is felt to have a non-ST elevation SD. Her heart rate and blood pressure are little more stable. She had a fairly good night and is breathing okay. This morning she went for cardiac catheterization and does have significant three-vessel coronary artery disease. She did have a stent placed to the right coronary artery. She has been monitored in the CCU today. She is sleepy but arousable. She says she is breathing comfortably. Exam (Progress Note) - Constitutional Vitals: Period Temp Pulse Resp BP Sys/Anderson Pulse Ox Last 24 Hr 96.9 F-98.5 F 70-106 13-22 107-135/56-76 88-99 Exam: General appearance: no distress (She is sleepy but arouses easily. She is in no respiratory distress.) - Head Head exam: Present: normal inspection, normocephalic - Eye Eye exam: Present: EOMI. Absent: scleral icterus Pupils: Present: NANCY - ENT ENT exam: Present: normal exam - Neck Neck exam: Present: normal inspection. Absent: lymphadenopathy, thyromegaly - Respiratory Respiratory exam: Present: She has fairly good breath sounds bilaterally she is moving air fairly well with just some minimal rhonchi. - Cardiovascular Cardiovascular exam: Present: regular rate and rhythm, systolic murmur (She has a soft systolic murmur). Absent: gallop, JVD - GI/Abdominal GI/Abdominal exam: Present: normal bowel sounds, soft. Absent: distended, organomegaly, tenderness - Extremities Exam Extremities exam: Absent: calf tenderness, edema - Neurological Exam Neurological exam: Present: alert, oriented X3, CN II-XII intact. Absent: motor sensory deficit - Psychiatric Psychiatric exam: Present: She looks much calmer today. - Skin Skin exam: Present: warm, dry Results - Labs CBC & BMP: 10/24/16 05:38 10/24/16 05:38 Assessment and Plan (1) Acute exacerbation of chronic obstructive airways disease Status: Acute Assessment and plan: The patient comes in with acute bronchitis and exacerbation of her COPD. She has been started on antibiotics, steroids, and bronchodilator therapy. She now has some right middle lobe atelectasis. She is doing better with her breathing and she did well with a cardiac catheterization. We will recheck a chest x-ray tomorrow. Current Visit: Yes (2) Hypertension Status: Acute Assessment and plan: She will continue with blood pressure medicines. Her vital signs are stable. Current Visit: Yes (3) Valvular heart disease Status: Acute Assessment and plan: She has had previous valvular heart disease but has been doing reasonably well lately. Her echo does not look too bad at present. She does not look like she is in heart failure at present. Current Visit: Yes (4) Non-ST elevation SD (NSTEMI) Status: Acute Assessment and plan: Patient has had a small SD and went to the Clinical Case [facility] today. She has previously had CABG and had a stent to 1 of her grafts. She is stable at present. Current Visit: Yes Specialty Discharge - Follow Up or Referrals
[2016-10-24] MEDS: FUROSEMIDE 40 MG/4 ML VIAL IV SCH (12:23)
[2016-10-24] MEDS: ATORVASTATIN 40 MG TABLET PO SCH (21:26)
[2016-10-25] MEDS: ALBUTEROL/IPRATROPIUM 3 ML NEB RESP TX SCH ×4 (00:53→19:36)
[2016-10-25] MEDS: methylPREDNISolone SOD SUC 40 MG/1 ML VIAL IV SCH ×3 (01:44→18:41)
--- NOTE | 2016-10-25 01:55 | Cardiology Progress Note ---
Cardiology - PN: Subj Interval history: Cardiology note 86-year-old woman admitted with pneumonia and CHF and non-Q-wave [place]. Status post RCA vein graft stent yesterday. Circumflex vein graft occluded and DUFFY graft patent. Right groin has small ecchymotic bruise but no bruit or hematoma. Telemetry shows sinus rhythm in the 80s O2 sat 95% on 2 L cannula No chest pain or shortness of breath. Regular rhythm with systolic ejection murmur upper right sternal border. No AI. Decreased breath sounds with basilar rhonchi Nontender abdomen Right groin has a small ecchymotic bruise and good distal pulse Impression Pneumonia Superimposed CHF with small non-Q-wave [place] peak troponin 1.720 Status post three-vessel CABG [address] [facility] Obesity Echo showed ejection fraction 60% with grade 1 diastolic dysfunction, mitral annular calcification with mild MR, aortic valve sclerosis, normal RV function and moderate TR PA pressure 45-50 no effusion Status post RCA vein graft stent 4.5 x 13 mm bare metal ultra stent. The circumflex vein graft is occluded and the DUFFY graft to LAD is patent. Plan Lab data pending Routine groin precautions discussed Transfer to telemetry Continue aspirin 81 mg and Plavix 75 mg daily Continue Lipitor 40 mg daily Continue steroids and levofloxacin DC Lovenox Exam (Progress Note) - Constitutional Vitals: Period Temp Pulse Resp BP Sys/Anderson Pulse Ox Last 24 Hr 96.9 F-98.4 F 67-107 13-34 104-136/53-88 88-100 Result/EKG - Labs CBC & BMP: 10/24/16 05:38 10/24/16 05:38 Labs: Laboratory Results - last 24 hr 10/24/16 10/24/16 10/24/16 05:38 05:38 05:38 WBC 10.7 RBC 3.85 Hgb 11.3 L Hct 34.5 L MCV 89.6 MCH 29 MCHC 32.8 RDW 13.0 Plt Count 242 MPV 10.5 Neut % (Auto) 85.9 H Lymph % (Auto) 6.4 L [place] % (Auto) 4.7 Eos % (Auto) 0.0 Baso % (Auto) 0.1 Neut # (Auto) 9.2 H Lymph # (Auto) 0.7 L [place] # (Auto) 0.5 Eos # (Auto) 0.0 Baso # (Auto) 0.0 Total Counted 100 Immature Gran % 2.9 Nucleated RBC % 0.0 Immature Gran # 0.31 Segmented Neutrophils 85 Band Neutrophils 2 Lymphocytes 9 L Monocytes 4 Nucleated RBCs # 0.00 Platelet Estimate Normal Immature Plt Fraction 0.0 Hypochromasia 2+ Microcytosis 1+ INR 1.1 PT Patient/Control Mix 12.2 Circ Anticoag PTT 36.4 Sodium 140 Potassium 3.5 Chloride 101 Carbon Dioxide 32 Anion Gap 10.5 BUN 25 H Creatinine 0.70 GFR Calculation 88 BUN/Creatinine Ratio 35.00 H Glucose 146 H POC Glucose Calculated Osmolality 285.4 Calcium 8.4 L Magnesium 2.5 H Troponin I 10/24/16 10/24/16 10/24/16 09:47 11:01 16:48 WBC RBC Hgb Hct MCV MCH MCHC RDW Plt Count MPV Neut % (Auto) Lymph % (Auto) [place] % (Auto) Eos % (Auto) Baso % (Auto) Neut # (Auto) Lymph # (Auto) [place] # (Auto) Eos # (Auto) Baso # (Auto) Total Counted Immature Gran % Nucleated RBC % Immature Gran # Segmented Neutrophils Band Neutrophils Lymphocytes Monocytes Nucleated RBCs # Platelet Estimate Immature Plt Fraction Hypochromasia Microcytosis INR PT Patient/Control Mix Circ Anticoag PTT Sodium Potassium Chloride Carbon Dioxide Anion Gap BUN Creatinine GFR Calculation BUN/Creatinine Ratio Glucose POC Glucose 176 H Calculated Osmolality Calcium Magnesium Troponin I 0.304 H D 0.420 H D 10/24/16 10/24/16 16:56 21:00 WBC RBC Hgb Hct MCV MCH MCHC RDW Plt Count MPV Neut % (Auto) Lymph % (Auto) [place] % (Auto) Eos % (Auto) Baso % (Auto) Neut # (Auto) Lymph # (Auto) [place] # (Auto) Eos # (Auto) Baso # (Auto) Total Counted Immature Gran % Nucleated RBC % Immature Gran # Segmented Neutrophils Band Neutrophils Lymphocytes Monocytes Nucleated RBCs # Platelet Estimate Immature Plt Fraction Hypochromasia Microcytosis INR PT Patient/Control Mix Circ Anticoag PTT Sodium Potassium Chloride Carbon Dioxide Anion Gap BUN Creatinine GFR Calculation BUN/Creatinine Ratio Glucose POC Glucose 229 H 197 H Calculated Osmolality Calcium Magnesium Troponin I Quality Measures - VTE Contraindication to Pharmacological VTE Prophylaxis: Already on Theraputic Agent , No Prophylaxis Needed Specialty Discharge - Follow Up or Referrals
[2016-10-25 02:46] LABS: Basophils % 0.2 % (0.0-0.8); Hematocrit 30.9 VOL% (35.7-47.0); Hemoglobin 10.3 GM/DL (12.0-16.0); Immature Granulocytes % 4.5 %; Immature Granulocytes Absolute 0.77 #; Lymphocytes # 1.1 10*3/uL (1.4-4.0); Lymphocytes % 6.2 % (21.3-54.2); Mean Corpuscular HGB Conc 33.3 GM/DL (32-36); Mean Corpuscular Hemoglobin 30 PG (27-34); Mean Corpuscular Volume 88.5 FL (87-102); Mean Platelet Volume 10.1 FL (9.6-12.0); Monocytes # 1.1 10*3/uL (0.11-0.8); Monocytes % 6.2 % (1.7-12.7); Neutrophils # 14.4 10*3/uL (1.4-7.4); Neutrophils % 82.9 % (38.7-73.9); Platelet Count 263 T/CUMM (130-400); Red Blood Count 3.49 MC/CUMM (3.8-5.5); White Blood Count 17.3 T/CUMM (4-12)
[2016-10-25 03:20] LABS: Calcium 7.9 MG/DL (8.5-10.1); Magnesium 2.4 MG/DL (1.8-2.4); Osmolality,Calculated 289.1 MOS/KG (273-304); Potassium 3.8 MMOL/L (3.5-5.1)
[2016-10-25 05:00] LABS: Lymphocytes 11 % (20-55); Segmented Neutrophils 84 % (50-85)
[2016-10-25 05:01] LABS: Platelet Estimate Normal
[2016-10-25 05:02] LABS: Hypochromasia 1+; Total Cells Counted 100
--- NOTE | 2016-10-25 08:53 | XRay Report ---
XR chest 1V portable Indication: Shortness of breath Comparison: Chest x-ray 10/24/2016 Technique: Portable AP chest was performed. Findings: Lung parenchyma demonstrates no change from comparison. The chest is stable. Impression: 1. No adverse interval change in the chest. 10/25/2016 8:50 AM PROCEDURE INTERPRETED AT [facility] DEPARTMENT OF RADIOLOGY Final Report Signed by: Dr. Juanjose Naranjo
--- NOTE | 2016-10-25 09:36 | EKG Report ---
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
[2016-10-25] MEDS: ASPIRIN EC 81 MG TABLET PO SCH (09:45)
[2016-10-25] MEDS: LOSARTAN 50 MG TABLET PO SCH (09:46)
[2016-10-25] MEDS: amLODIPine 5 MG TABLET PO SCH (09:47)
[2016-10-25] MEDS: FUROSEMIDE 40 MG/4 ML VIAL IV SCH (09:47)
[2016-10-25] MEDS: LEVOFLOXACIN INJ 500 MG in PREMIX 1 EACH IV SCH (09:47)
[2016-10-25] MEDS: PANTOPRAZOLE 40 MG TABLET PO SCH (09:48)
[2016-10-25] MEDS: CLOPIDOGREL 75 MG TABLET PO SCH (09:48)
--- NOTE | 2016-10-25 10:28 | Pulmonology Progress Note ---
Pulmonary - PN: Subj Interval history: This is an 86-year-old female patient of Dr. Robert Faye's. Dr. Faye has follow with her for high blood pressure and mild COPD. Patient's had heart failure. She went to the [facility] on 10/24/2016. She had had a non-STEMI. She had 100% occlusion of the LAD in the right coronary artery and metal stents were placed. Today's chest x-ray shows mild cardiomegaly sternal wires small amount of fluid in the minor fissure no overt heart failure and no infiltrate Lab. White count 17,300 with 83 segs. H&H is 10.3/30.9. Electrolytes normal. Creatinine 0.70 with a BUN of 24. Troponins have dropped to 0.362 Microbiology. No positive cultures Physical exam. Vital signs. See below. Afebrile Psychiatric. Oriented 3 Neurologic. Cranial nerves are intact long track motor functions intact Face. Symmetrical. No edema of the lips or tongue Neck. Symmetrical. No meningismus Lymphatics. No submandibular cervical supraclavicular adenopathy Chest. Slight large airway congestion mild prolongation of expiration Heart. No gallop Abdomen. Nondistended. Scattered positive bowel sounds Lower extremities. Nothing to suggest deep venous thrombophlebitis. The remainder of the physical exam is negative. Plan. 1. Continue present regimen. 2. This patient is scheduled to be moved to room 292 Exam (Progress Note) - Constitutional Vitals: Period Temp Pulse Resp BP Sys/Anderson Pulse Ox Last 24 Hr 97.2 F-98.4 F 67-107 14-34 104-139/53-88 89-100 Results - Labs CBC & BMP: 10/25/16 02:34 10/25/16 02:34 Specialty Discharge - Follow Up or Referrals
[2016-10-25] MEDS: INSULIN REGULAR 100 UNIT/ML SUBCUT SCH ×4 (11:14→22:15)
[2016-10-25] MEDS: ATORVASTATIN 40 MG TABLET PO SCH (21:30)
[2016-10-26] MEDS: ALBUTEROL/IPRATROPIUM 3 ML NEB RESP TX SCH ×4 (00:34→19:02)
[2016-10-26] MEDS: methylPREDNISolone SOD SUC 40 MG/1 ML VIAL IV SCH ×2 (01:47→10:58)
[2016-10-26 06:14] LABS: Basophils # 0.1 10*3/uL (0.0-0.2); Basophils % 0.3 % (0.0-0.8); Hemoglobin 10.6 GM/DL (12.0-16.0); Immature Granulocytes % 7.4 %; Immature Granulocytes Absolute 1.47 #; Lymphocytes # 1.3 10*3/uL (1.4-4.0); Lymphocytes % 6.4 % (21.3-54.2); Mean Corpuscular HGB Conc 33.1 GM/DL (32-36); Mean Corpuscular Hemoglobin 29 PG (27-34); Mean Corpuscular Volume 88.6 FL (87-102); Mean Platelet Volume 10.4 FL (9.6-12.0); Monocytes # 0.8 10*3/uL (0.11-0.8); Monocytes % 3.8 % (1.7-12.7); Neutrophils # 16.3 10*3/uL (1.4-7.4); Neutrophils % 82.1 % (38.7-73.9); Platelet Count 288 T/CUMM (130-400); Red Blood Count 3.61 MC/CUMM (3.8-5.5); Red Cell Distribution Width 13.2 % (9.3-17.3); White Blood Count 19.9 T/CUMM (4-12)
[2016-10-26 06:54] LABS: Calcium 8.3 MG/DL (8.5-10.1); Magnesium 2.4 MG/DL (1.8-2.4); Osmolality,Calculated 286.3 MOS/KG (273-304); Potassium 4.1 MMOL/L (3.5-5.1)
[2016-10-26 07:46] LABS: Band Neutrophils 3 % (0-10); Hypochromasia Slight; Lymphocytes 10 % (20-55); Ovalocytes Slight; Platelet Estimate Adequate; Segmented Neutrophils 86 % (50-85); Total Cells Counted 100
[2016-10-26 07:47] LABS: Microcytosis Slight
[2016-10-26] MEDS: LOSARTAN 50 MG TABLET PO SCH (09:16)
[2016-10-26] MEDS: amLODIPine 5 MG TABLET PO SCH (09:17)
[2016-10-26] MEDS: PANTOPRAZOLE 40 MG TABLET PO SCH (09:17)
[2016-10-26] MEDS: CLOPIDOGREL 75 MG TABLET PO SCH (09:17)
[2016-10-26] MEDS: ASPIRIN EC 81 MG TABLET PO SCH (09:17)
[2016-10-26] MEDS: CLORAZEPATE 3.75 MG TABLET PO PRN ×2 (09:17→17:49)
[2016-10-26] MEDS: INSULIN REGULAR 100 UNIT/ML SUBCUT SCH ×4 (09:18→22:15)
[2016-10-26] MEDS: FUROSEMIDE 40 MG/4 ML VIAL IV SCH (09:18)
[2016-10-26] MEDS: LEVOFLOXACIN INJ 500 MG in PREMIX 1 EACH IV SCH (09:25)
--- NOTE | 2016-10-26 09:42 | Pulmonology Progress Note ---
Pulmonary - PN: Subj Interval history: This is an 86-year-old female patient of Dr. Robert Faye's. Dr. Faye has follow with her for high blood pressure and mild COPD. Patient's had heart failure. She went to the [facility] on 10/24/2016. She had had a non-STEMI. She had 100% occlusion of the LAD in the right coronary artery and metal stents were placed. Today's chest x-ray shows mild cardiomegaly sternal wires small amount of fluid in the minor fissure no overt heart failure and no infiltrate Lab. White count 17,300 with 83 segs. H&H is 10.3/30.9. Electrolytes normal. Creatinine 0.70 with a BUN of 24. Troponins have dropped to 0.362 Microbiology. No positive cultures 10/26/2016. 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 She says she is pain-free breathing much better. She is hoping to go home later on today. Early on the patient was fairly nervous and somewhat emotional but she appears to have settled down now. She has no complaints and no request other than she go home. Electrolytes are normal. Creatinine is 0.6 with a BUN of 21. White count is 19,900 with 82 segs. H&H is 10.6/32.0. Patient is afebrile. Physical exam. Vital signs. See below. Afebrile Psychiatric. Oriented 3 Neurologic. Cranial nerves are intact long track motor functions intact Face. Symmetrical. No edema of the lips or tongue Neck. Symmetrical. No meningismus Lymphatics. No submandibular cervical supraclavicular adenopathy Chest. Breath sounds are clear. No wheeze. No rales Heart. No gallop Abdomen. Nondistended. Scattered positive bowel sounds Lower extremities. Nothing to suggest deep venous thrombophlebitis. The remainder of the physical exam is negative. Plan. 10/25/2016 1. Continue present regimen. 2. This patient is scheduled to be moved to room [facility] 10/26/2016. 1. See today's note above. Exam (Progress Note) - Constitutional Vitals: Period Temp Pulse Resp BP Sys/Anderson Pulse Ox Last 24 Hr 96.8 F-97.6 F 16-100 16-103 104-149/59-79 90-99 Results - Labs CBC & BMP: 10/26/16 05:41 10/26/16 05:41 Specialty Discharge - Follow Up or Referrals
--- NOTE | 2016-10-26 15:56 | Cardiology Progress Note ---
Cardiology - PN: Subj Interval history: Cardiology note 86 year old woman admitted with pneumonia and CHF and non-Q-wave [place]. Status post RCA vein graft stent October 24. Circumflex vein graft occluded and DUFFY graft patent. Telemetry shows sinus rhythm in the 70s and 80s O2 sat 93% on 2 L cannula Denies chest pain but tires easily. Regular rhythm with systolic murmur upper right sternal border. No AI. Decreased breath sounds with few rhonchi in the bases. No wheezing. Benign abdomen. Right groin soft and dry no bruit Or hematoma. Small ecchymotic bruise Impression Pneumonia Superimposed CHF with small non-Q-wave [place] peak troponin 1.720 Status post three-vessel CABG 1987 [facility] Obesity Echo showed EF 60% with grade 1 diastolic dysfunction mitral annular calcification with mild MR, aortic valve sclerosis, normal RV function, moderate TR PA pressure 45-50 and no effusion Status post RCA vein graft stent 4.5 x 13 mm bare-metal ultra. The circumflex vein graft occluded and the DUFFY graft to LAD patent Plan DC IV Solu-Medrol Switch to prednisone 40 mg daily. Prednisone will be tapered per Dr. Faye' s instructions tomorrow DC IV Lasix and begin Lasix 40 mg p.o. daily Continue aspirin 81 mg and Plavix 75 mg daily Continue Lipitor 40 mg daily Continue levofloxacin daily Home tomorrow Office visit with EKG 1 week Exam (Progress Note) - Constitutional Vitals: Period Temp Pulse Resp BP Sys/Anderson Pulse Ox Last 24 Hr 96.8 F-97.6 F 16-101 16-103 106-146/55-77 91-100 Result/EKG - Labs CBC & BMP: 10/26/16 05:41 10/26/16 05:41 Labs: Laboratory Results - last 24 hr 10/25/16 10/25/16 10/26/16 18:00 21:18 05:41 WBC 19.9 H RBC 3.61 L Hgb 10.6 L Hct 32.0 L MCV 88.6 MCH 29 MCHC 33.1 RDW 13.2 Plt Count 288 MPV 10.4 Neut % (Auto) 82.1 H Lymph % (Auto) 6.4 L [place] % (Auto) 3.8 Eos % (Auto) 0.0 Baso % (Auto) 0.3 Neut # (Auto) 16.3 H Lymph # (Auto) 1.3 L [place] # (Auto) 0.8 Eos # (Auto) 0.0 Baso # (Auto) 0.1 Total Counted 100 Immature Gran % 7.4 Nucleated RBC % 0.0 Immature Gran # 1.47 Segmented Neutrophils 86 H Band Neutrophils 3 Lymphocytes 10 L Monocytes 1 L Nucleated RBCs # 0.00 Platelet Estimate Adequate Immature Plt Fraction 0.0 Hypochromasia Slight Microcytosis Slight Ovalocytes Slight Morphology Comment Sodium Potassium Chloride Carbon Dioxide Anion Gap BUN Creatinine GFR Calculation BUN/Creatinine Ratio Glucose POC Glucose 246 H 225 H Calculated Osmolality Calcium Magnesium 10/26/16 10/26/16 10/26/16 05:41 08:10 11:22 WBC RBC Hgb Hct MCV MCH MCHC RDW Plt Count MPV Neut % (Auto) Lymph % (Auto) [place] % (Auto) Eos % (Auto) Baso % (Auto) Neut # (Auto) Lymph # (Auto) [place] # (Auto) Eos # (Auto) Baso # (Auto) Total Counted Immature Gran % Nucleated RBC % Immature Gran # Segmented Neutrophils Band Neutrophils Lymphocytes Monocytes Nucleated RBCs # Platelet Estimate Immature Plt Fraction Hypochromasia Microcytosis Ovalocytes Morphology Comment Sodium 141 Potassium 4.1 Chloride 100 Carbon Dioxide 35 H Anion Gap 10.1 BUN 21 H Creatinine 0.60 GFR Calculation 90 BUN/Creatinine Ratio 35.00 H Glucose 148 H POC Glucose 177 H 224 H Calculated Osmolality 286.3 Calcium 8.3 L Magnesium 2.4 Quality Measures - VTE Contraindication to Pharmacological VTE Prophylaxis: Already on Theraputic Agent , No Prophylaxis Needed Specialty Discharge - Follow Up or Referrals
[2016-10-26] MEDS: predniSONE 20 MG TABLET PO SCH (17:49)
[2016-10-26] MEDS ORDERED: diphenhydrAMINE CAP 25 MG CAPSULE PO PRN (17:53)
[2016-10-26] MEDS: ATORVASTATIN 40 MG TABLET PO SCH (21:57)
[2016-10-27] MEDS: ALBUTEROL/IPRATROPIUM 3 ML NEB RESP TX SCH ×3 (00:30→13:22)
[2016-10-27 04:54] LABS: Basophils % 0.1 % (0.0-0.8); Hematocrit 32.2 VOL% (35.7-47.0); Hemoglobin 10.4 GM/DL (12.0-16.0); Immature Granulocytes % 7.6 %; Immature Granulocytes Absolute 1.67 #; Lymphocytes # 1.7 10*3/uL (1.4-4.0); Lymphocytes % 7.5 % (21.3-54.2); Mean Corpuscular HGB Conc 32.3 GM/DL (32-36); Mean Corpuscular Hemoglobin 29 PG (27-34); Mean Platelet Volume 10.2 FL (9.6-12.0); Monocytes # 1.3 10*3/uL (0.11-0.8); Monocytes % 5.9 % (1.7-12.7); NRBC # 0.04 10*3/uL; Neutrophils # 17.4 10*3/uL (1.4-7.4); Neutrophils % 78.9 % (38.7-73.9); Platelet Count 283 T/CUMM (130-400); Red Blood Count 3.62 MC/CUMM (3.8-5.5); Red Cell Distribution Width 13.2 % (9.3-17.3); White Blood Count 22.1 T/CUMM (4-12)
[2016-10-27 05:25] LABS: Calcium 8.4 MG/DL (8.5-10.1); Magnesium 2.3 MG/DL (1.8-2.4); Osmolality,Calculated 284.3 MOS/KG (273-304); Potassium 3.3 MMOL/L (3.5-5.1)
[2016-10-27 05:42] LABS: Hypochromasia 1+; Lymphocytes 7 % (20-55); Microcytosis Slight; Segmented Neutrophils 88 % (50-85); Total Cells Counted 100
[2016-10-27 05:43] LABS: Ovalocytes Slight; Platelet Estimate Normal
[2016-10-27] MEDS: INSULIN REGULAR 100 UNIT/ML SUBCUT SCH ×2 (08:39→12:44)
[2016-10-27] MEDS: ASPIRIN EC 81 MG TABLET PO SCH (08:40)
[2016-10-27] MEDS: predniSONE 20 MG TABLET PO SCH (08:40)
[2016-10-27] MEDS: CLOPIDOGREL 75 MG TABLET PO SCH (08:40)
[2016-10-27] MEDS: amLODIPine 5 MG TABLET PO SCH (08:40)
[2016-10-27] MEDS: LOSARTAN 50 MG TABLET PO SCH (08:40)
[2016-10-27] MEDS: PANTOPRAZOLE 40 MG TABLET PO SCH (08:40)
[2016-10-27] MEDS: LEVOFLOXACIN INJ 500 MG in PREMIX 1 EACH IV SCH (08:40)
[2016-10-27] MEDS ORDERED: FUROSEMIDE 40 MG TABLET PO SCH (09:00)
--- NOTE | 2016-10-27 09:04 | Pulmonology Progress Note ---
Pulmonary - PN: Subj Interval history: Patient is an 86-year-old white lady that has a history of having hypertension and valvular heart disease and has had a component of heart failure in the past. She also may have some very mild COPD. She comes in with coughing and wheezing and looks like she is having a COPD exacerbation. She had positive enzymes and is felt to have a non-ST elevation [place]. Her heart rate and blood pressure are little more stable. She is taken to the cardiac catheterization lab and had a stent placed. She did fairly well over the weekend and her breathing is better. She says her cough and congestion have improved. Her chest x-ray was better on Thursday. She says she wants to try to go home. She may need some bronchodilators at home. She can probably go home today with home health. Exam (Progress Note) - Constitutional Vitals: Period Temp Pulse Resp BP Sys/Anderson Pulse Ox Last 24 Hr 96.5 F-98.4 F 97-110 16-20 106-145/55-73 90-100 Exam: General appearance: no distress (She is sitting up and looks comfortable in a chair.) - Head Head exam: Present: normal inspection, normocephalic - Eye Eye exam: Present: EOMI. Absent: scleral icterus Pupils: Present: NANCY - ENT ENT exam: Present: normal exam - Neck Neck exam: Present: normal inspection. Absent: lymphadenopathy, thyromegaly - Respiratory Respiratory exam: Present: She has fairly good breath sounds bilaterally she sounds better with no wheezing now. - Cardiovascular Cardiovascular exam: Present: regular rate and rhythm, systolic murmur (She has a soft systolic murmur). Absent: gallop, JVD - GI/Abdominal GI/Abdominal exam: Present: normal bowel sounds, soft. Absent: distended, organomegaly, tenderness - Extremities Exam Extremities exam: Absent: calf tenderness, edema, no signs of phlebitis. - Neurological Exam Neurological exam: Present: alert, oriented X3, CN II-XII intact. Absent: motor sensory deficit - Psychiatric Psychiatric exam: Present: She looks much calmer today. - Skin Skin exam: Present: warm, dry Results - Labs CBC & BMP: 10/27/16 03:55 10/27/16 03:55 Assessment and Plan (1) Acute exacerbation of chronic obstructive airways disease Status: Acute Assessment and plan: The patient comes in with acute bronchitis and exacerbation of her COPD. She is doing much better with treatment and can go home from my standpoint. She can get a nebulizer at home. She wants home health. Current Visit: Yes (2) Hypertension Status: Acute Assessment and plan: She will continue with blood pressure medicines. Her vital signs are stable. Current Visit: Yes (3) Valvular heart disease Status: Acute Assessment and plan: She has had previous valvular heart disease but has been doing reasonably well lately. Her echo does not look too bad at present. She does not look like she is in heart failure at present. Current Visit: Yes (4) Non-ST elevation [place] (NSTEMI) Status: Acute Assessment and plan: Patient has had a small VT and went to the [facility] and had a stent done. She appears to be hemodynamically stable now. She feels like she is breathing better. Current Visit: Yes Specialty Discharge - Follow Up or Referrals
--- NOTE | 2016-10-27 11:53 | Discharge Summary ---
Hospital Course - Hospital Course Hospital Course: Neck Pinner: Dr. Garrett PCP: Marisel Velazquez NP Irrigation Equipment Installer: Dr. Erwin Faye SUMMARY Ms. Xiong is a 86 year old female with PMH of known history of CAD, hypertension, obesity, renal insufficiency, former smoker (quit in 1987), COPD and valvular heart disease. She reports that at her last appointment with Dr. Garrett, he informed her that she needed a valve replacement. However, she refused at that time due to her advanced age. She is status post CABG 1987 3. She is a poor historian and is unaware where her grafts are located. I have requested records from [facility]. She does not think that she has had heart catheterization since 1987. She has never been seen by [facility] cardiology. Patient presented to [facility] October 19, 2016. She has been treated for COPD exacerbation, acute congestive heart failure ( secondary to diastolic dysfunction) and non-ST elevation VT. Troponin at admission was noted to be 1.720. Echocardiogram was performed and revealed ejection fraction of 60% with grade 1 diastolic dysfunction. Mild MR. PA pressures 45-50 mmHg with no effusion. Patient's acute CHF exacerbation and COPD exacerbation was treated before she was stable for heart catheterization. She was diuresed appropriately with IV Lasix. Lost a total of [address] Erwin Faye was consulted for assistance in treating her acute COPD exacerbation and pneumonia. She was treated appropriately with steroid therapy, bronchodilators and antibiotics. Once patient was well enough to lie flat comfortably, she underwent LHC October 24, 2016 with the following impressions noted: Impression: 1. Severe three-vessel coronary disease as described in full report with inadequate revascularization and vein graft failure as described in full report. Status post successful PCI of the proximal and ostial portion of the saphenous vein graft to the RCA with bare-metal stent as described with excellent angiographic result and preserved flow with no evidence of complications 2. Circumflex vein graft chronically occluded 3. DUFFY graft to LAD patent Post cardiac catheterization patient was transported back to the telemetry unit in stable condition. Patient is doing well this morning without complaints of chest pain, heaviness and tightness. She reports her breathing has greatly improved and feels that it is back to her baseline. She denies shortness of breath or dyspnea on exertion. Now compensated. She will be discharged home with 20 mg of Lasix daily. Right groin is soft without bleeding , hematoma and bruit. Distal pulses 2+. She has ambulated down the bermeo without difficulty. Right groin remained stable post ambulation. Right groin precautions have been reviewed with the patient. She verbalizes understanding. I have also discussed the importance of compliance with dual antiplatelet therapy. She will be discharged home with Plavix and aspirin. She verbalizes understanding. She was seen by Dr. Erwin Faye and he feels that she is stable for discharge home from his standpoint. She will be discharged home with Levaquin 250 mg daily for an additional 5 days. Prednisone 40 mg daily 1 week. She will then be given a follow-up appointment with Dr. Faye in 1 week for further instruction. She will follow with Dr. Garrett in 1 week with CBC, BMP, EKG and magnesium. She is anxious for discharge home today. Case management has been involved in her care and has set up home health at discharge. Having felt that she has not maximal medical therapy, she will be discharged home in stable condition. Patient did have non-ST elevation VT and will not be sent home on beta blockade due to allergy of this class of medications. Patient will have home health upon discharge. Patient verbalizes understanding of discharge instructions and discharge medications. - Time spent with patient Time with patient DS: Greater than 30 minutes Diagnosis - Discharge Diagnosis (1) Acute exacerbation of chronic obstructive airways disease Status: Resolved (2) Elevated troponin Status: Resolved (3) Congestive heart failure Status: Chronic (4) Hypertension Status: Chronic (5) Obesity Status: Chronic (6) Former smoker Status: Chronic (7) History of coronary artery disease Status: Chronic (8) Status post aorto-coronary artery bypass graft Status: Chronic (9) Acute bronchitis Status: Resolved (10) Non-ST elevation VT (NSTEMI) Status: Resolved (11) Mild aortic stenosis Status: Chronic Specialty Discharge - Follow Up or Referrals Follow up with: Chandana Garrett Jr. [Physician] - 1 Week (With CBC, BMP, magnesium and EKG) Erwin Faye MD [Physician] - 1 Week TORY VELAZQUEZ FNP [Advanced Practice Nurse] - 2 Weeks Discharge Plan - Discharge Data Disposition: Disch To Home/Self Care Condition at Discharge: Stable Discharge Diet: heart healthy Activity: no lifting (Avoid squatting and heavy lifting 1 week), other (Post cath expectations) Hygiene: other (Post cath expectations) Weight Bearing at Discharge: other (Post cath expectations) Driving: other (Post cath expectations) Contact your physician if you experience:: fever over 101, Difficulty voiding, Redness or swelling, Nausea/Vomiting, Shortness of breath, Bleeding, pain uncontrolled by pain medications - Discharge Medications New Clopidogrel [Plavix] 75 mg PO DAILY #30 tablet Levofloxacin Tab [Levaquin Tab] 250 mg PO DAILY #5 tablet predniSONE TAB [PredniSONE] 40 mg PO DAILY #14 tablet Atorvastatin [Lipitor] 40 mg PO BEDTIME #30 tablet Potassium Chloride Cap/Tab [K Dur] 10 meq PO DAILY #30 tablet Continue amLODIPine [Norvasc] 5 mg PO DAILY Losartan Potassium 50 mg PO DAILY Albuterol Sulfate [Ventolin HFA] 2 puff INH Q6H PRN #1 inhaler PRN Reason: Shortness Of Breath/Wheezing Aspirin EC Tab 81 mg PO DAILY Furosemide Tab [Lasix Tab] 10 mg PO DAILY #30 - Follow Up or Referral Follow Up: Chandana Garrett Jr. [Physician] - Erwin Faye MD [Physician] - 1 Week - Forms/Instructions Instructions: Myocardial Infarction (GEN), Chest Pain (GEN), Left Heart Catheterization (DC), Heart Healthy Diet (GEN), Coronary Intravascular Stent Placement, Senior Telecommunications Technician (GEN) Exam - Constitutional Vitals: Period Temp Pulse Resp BP Sys/Anderson Pulse Ox Last 24 Hr 96.5 F-98.4 F 97-110 16-20 106-145/55-73 90-100 Exam: General: Appears well with no apparent distress. Pleasant and cooperative. Appears comfortable. HEENT: PERRL, normocephalic, atraumatic. Mucous membranes moist. No jaundice noted. Conjunctiva moist and clear, sclerae anicteric Neck: No JVD/HJR, no thyromegaly or lymphadenopathy noted. Cardiac: Regular rate and rhythm. Grade 2 systolic murmur. Lungs: Clear to auscultation. Not requiring oxygen. Abdomen: Soft, bowel sounds normoactive. Nontender and nondistended. No abdominal bruit or thrill noted. No masses noted. Extremities: No clubbing, cyanosis noted. No edema noted. Upper extremity pulses 2+. Lower extremity pulses 2+. Capillary refill less than 3 seconds. Right groin soft without bleeding, hematoma and bruit. Distal pulses present. Skin: No unusual lesions or rashes. No skin breakdown appreciated. Neuro: Awake, alert and oriented 3. Moves all extremities well without hemiparesis or paralysis. No essential tremor is appreciated. Discharge Results Labs on day of discharge: Labs from last 24 hours 10/27/16 10/27/16 10/27/16 07:44 03:55 03:55 WBC 22.1 H RBC 3.62 L Hgb 10.4 L Hct 32.2 L MCV 89.0 MCH 29 MCHC 32.3 RDW 13.2 Plt Count 283 MPV 10.2 Neut % (Auto) 78.9 H Lymph % (Auto) 7.5 L Crenshaw % (Auto) 5.9 Eos % (Auto) 0.0 Baso % (Auto) 0.1 Neut # (Auto) 17.4 H Lymph # (Auto) 1.7 Crenshaw # (Auto) 1.3 H Eos # (Auto) 0.0 Baso # (Auto) 0.0 Total Counted 100 Immature Gran % 7.6 Nucleated RBC % 0.2 Immature Gran # 1.67 Segmented Neutrophils 88 H Lymphocytes 7 L Monocytes 5 Nucleated RBCs # 0.04 Platelet Estimate Normal Immature Plt Fraction 0.0 Hypochromasia 1+ Microcytosis Slight Ovalocytes Slight Sodium 141 Potassium 3.3 L Chloride 99 Carbon Dioxide 36 H Anion Gap 9.3 BUN 20 H Creatinine 0.60 GFR Calculation 92 BUN/Creatinine Ratio 33.00 H Glucose 117 H POC Glucose 102 Calculated Osmolality 284.3 Calcium 8.4 L Magnesium 2.3 10/26/16 10/26/16 10/26/16 21:59 17:20 11:22 WBC RBC Hgb Hct MCV MCH MCHC RDW Plt Count MPV Neut % (Auto) Lymph % (Auto) Crenshaw % (Auto) Eos % (Auto) Baso % (Auto) Neut # (Auto) Lymph # (Auto) Crenshaw # (Auto) Eos # (Auto) Baso # (Auto) Total Counted Immature Gran % Nucleated RBC % Immature Gran # Segmented Neutrophils Lymphocytes Monocytes Nucleated RBCs # Platelet Estimate Immature Plt Fraction Hypochromasia Microcytosis Ovalocytes Sodium Potassium Chloride Carbon Dioxide Anion Gap BUN Creatinine GFR Calculation BUN/Creatinine Ratio Glucose POC Glucose 307 H 188 H 224 H Calculated Osmolality Calcium Magnesium - Imaging and Cardiology Cardiology Procedure: report reviewed by DS: Provider Date of admission: 10/20/16 00:25 Primary care physician: . No PCP Attending physician on admission: Donta Bartlett Consults: 10/20/16 01:39 Consult to Physician [CONS] Routine Comment: COPD exacerbation Consulting Provider: Erwin Faye Date Notified: 10/20/16 Time Notified: 10:20 Consult Notification Comment: Left message with office. saw patient 10/2010/20/16 02:16 Consult to Pastoral Services [CONS] Routine Comment: Pastoral Screen: Request Bill Peddler Visit Pastoral Screen Source of Request: Patient 10/24/16 09:03 Consult to Cardiac Rehabilitation [CONS] Routine Reason for Cardiac Rehabilitation: Risk Factor Modification 10/27/16 09:14 Consult to Case Mgmt/Social Srvs [CONS] Routine Reason for Case Mgmt/Social Srvs: Home Health Discharging clinician: Lizzette Hassan NP Expected date of discharge: 10/27/16
[2016-10-27 12:44] VITALS: BP 136/62
[2016-10-27] MEDS: CLORAZEPATE 3.75 MG TABLET PO PRN (12:50)
[2016-10-27] MEDS ORDERED: POTASSIUM CHLORIDE 20 MEQ TABLET PO ONE (13:14)
[2016-10-27] MEDS ORDERED: FUROSEMIDE 20 MG TABLET PO SCH (13:21)
[2016-10-28] MEDS ORDERED: POTASSIUM CHLORIDE 10 MEQ TABLET PO SCH (09:00)
[2016-10-28] MEDS ORDERED: LEVOFLOXACIN 250 MG TABLET PO SCH (09:00)
== END 2016-10-27 15:15 | disposition home health service (06) | DRG 248 ==
LOC: N.ED 20:43 → N.TELEN 10-20 00:25 → N.CC 10-24 09:34 → N.TELEN 10-25 12:13
PROVIDERS: ADMIT Internal Medicine Cardiovascular Disease; ATTEND Internal Medicine Cardiovascular Disease

== ENCOUNTER 2017-01-29 08:26 | Observation (INO) ==
[2017-01-29] MEDS ORDERED: ALBUTEROL/IPRATROPIUM 3 ML NEB RESP TX STA (09:29)
[2017-01-29] MEDS ORDERED: methylPREDNISolone SOD SUC 125 MG/2 ML VIAL IV STA (09:29)
[2017-01-29] MEDS ORDERED: FUROSEMIDE 100 MG/10 ML VIAL IV STA (09:29)
[2017-01-29] MEDS ORDERED: FUROSEMIDE 20 MG/2 ML VIAL ONE (09:54)
[2017-01-29] MEDS ORDERED: methylPREDNISolone SOD SUC 125 MG/2 ML VIAL ONE (09:54)
[2017-01-29] MEDS ORDERED: FUROSEMIDE 40 MG/4 ML VIAL ONE (09:54)
[2017-01-29 10:08] LABS: Basophils % 0.4 % (0.0-0.8); Eosinophils # 0.1 10*3/uL (0.0-0.87); Eosinophils % 0.9 % (0.00-10.9); Hematocrit 26.5 VOL% (35.7-47.0); Hemoglobin 8.2 GM/DL (12.0-16.0); Immature Granulocytes % 0.4 %; Immature Granulocytes Absolute 0.02 #; Lymphocytes # 0.9 10*3/uL (1.4-4.0); Lymphocytes % 15.9 % (21.3-54.2); Mean Corpuscular HGB Conc 30.9 GM/DL (32-36); Mean Corpuscular Hemoglobin 26 PG (27-34); Mean Corpuscular Volume 84.7 FL (87-102); Mean Platelet Volume 9.9 FL (9.6-12.0); Monocytes # 0.5 10*3/uL (0.11-0.8); Neutrophils # 4.2 10*3/uL (1.4-7.4); Neutrophils % 74.4 % (38.7-73.9); Platelet Count 220 T/CUMM (130-400); Red Blood Count 3.13 MC/CUMM (3.8-5.5); Red Cell Distribution Width 14.2 % (9.3-17.3); White Blood Count 5.7 T/CUMM (4-12)
[2017-01-29 10:44] LABS: Albumin 3.3 G/DL (3.4-5.0); Bilirubin,Total 0.4 MG/DL (0.2-1.0); Calcium 8.5 MG/DL (8.5-10.1); Magnesium 1.8 MG/DL (1.8-2.4); Osmolality,Calculated 271.8 MOS/KG (273-304); Potassium 3.8 MMOL/L (3.5-5.1); Total Protein 6.3 G/DL (6.4-8.3); Troponin I Only 0.027 NG/ML (0.00-0.045)
[2017-01-29] MEDS ORDERED: ALBUTEROL 2.5 MG/3 ML NEB RESP TX PRN ×2 (12:33→12:54)
[2017-01-29] MEDS ORDERED: MORPHINE 2 MG/1 ML SYRINGE IV PRN (12:35)
[2017-01-29] MEDS ORDERED: ONDANSETRON 4 MG/2 ML VIAL IV PRN (12:35)
[2017-01-29] MEDS ORDERED: DOCUSATE SODIUM 100 MG CAPSULE PO PRN (12:35)
[2017-01-29] MEDS ORDERED: guaiFENesin/DM ER 600-30 MG TABLET PO PRN (12:35)
[2017-01-29] MEDS ORDERED: ACETAMINOPHEN 325 MG TABLET PO PRN ×2 (12:35)
[2017-01-29] MEDS ORDERED: diphenhydrAMINE CAP 25 MG CAPSULE PO PRN (12:35)
[2017-01-29] MEDS: ALBUTEROL/IPRATROPIUM 3 ML NEB RESP TX SCH ×2 (14:20→21:04)
[2017-01-29] MEDS: CLOPIDOGREL 75 MG TABLET PO SCH (14:32)
[2017-01-29] MEDS: LOSARTAN 50 MG TABLET PO SCH (14:32)
[2017-01-29] MEDS: PANTOPRAZOLE 40 MG TABLET PO SCH (14:32)
[2017-01-29] MEDS: POTASSIUM CHLORIDE 10 MEQ TABLET PO SCH (14:33)
[2017-01-29] MEDS: ASPIRIN EC 81 MG TABLET PO SCH (14:33)
[2017-01-29] MEDS: LEVOFLOXACIN 250 MG TABLET PO SCH (14:33)
[2017-01-29] MEDS: FUROSEMIDE 40 MG/4 ML VIAL IV SCH ×2 (14:33→20:22)
[2017-01-29] MEDS: amLODIPine 5 MG TABLET PO SCH (14:33)
[2017-01-29] MEDS: BUDESONIDE/FORMOTEROL 160-4.5 INHALER 6 GM INH SCH ×2 (17:01→20:26)
[2017-01-30] MEDS: ALBUTEROL/IPRATROPIUM 3 ML NEB RESP TX SCH ×2 (01:23→07:49)
[2017-01-30] MEDS: FUROSEMIDE 40 MG/4 ML VIAL IV SCH ×2 (02:19→06:45)
[2017-01-30 06:24] LABS: Hematocrit 25.6 VOL% (35.7-47.0); Hemoglobin 7.9 GM/DL (12.0-16.0); Immature Granulocytes % 0.7 %; Immature Granulocytes Absolute 0.03 #; Lymphocytes # 0.6 10*3/uL (1.4-4.0); Mean Corpuscular HGB Conc 30.9 GM/DL (32-36); Mean Corpuscular Hemoglobin 26 PG (27-34); Mean Corpuscular Volume 85.6 FL (87-102); Mean Platelet Volume 10.1 FL (9.6-12.0); Monocytes # 0.2 10*3/uL (0.11-0.8); Monocytes % 4.7 % (1.7-12.7); Neutrophils # 3.7 10*3/uL (1.4-7.4); Neutrophils % 81.6 % (38.7-73.9); Platelet Count 217 T/CUMM (130-400); Red Blood Count 2.99 MC/CUMM (3.8-5.5); Red Cell Distribution Width 14.2 % (9.3-17.3); White Blood Count 4.5 T/CUMM (4-12)
[2017-01-30 07:12] LABS: Calcium 8.3 MG/DL (8.5-10.1); Osmolality,Calculated 278.7 MOS/KG (273-304); Potassium 3.7 MMOL/L (3.5-5.1)
[2017-01-30] MEDS: amLODIPine 5 MG TABLET PO SCH (08:41)
[2017-01-30] MEDS: LEVOFLOXACIN 250 MG TABLET PO SCH (08:41)
[2017-01-30] MEDS: PANTOPRAZOLE 40 MG TABLET PO SCH (08:41)
[2017-01-30] MEDS: CLOPIDOGREL 75 MG TABLET PO SCH (08:41)
[2017-01-30] MEDS: POTASSIUM CHLORIDE 10 MEQ TABLET PO SCH (08:41)
[2017-01-30] MEDS: LOSARTAN 50 MG TABLET PO SCH (08:41)
[2017-01-30] MEDS: BUDESONIDE/FORMOTEROL 160-4.5 INHALER 6 GM INH SCH (08:41)
[2017-01-30] MEDS: ASPIRIN EC 81 MG TABLET PO SCH (08:41)
[2017-01-30 12:12] VITALS: BP 102/54
== END 2017-01-30 13:45 | disposition home or self-care (01) ==
LOC: N.ED 08:26 → N.EDINP 11:36 → INTOOBSV 11:36 → N.4E 13:15
PROVIDERS: ADMIT Internal Medicine Geriatric Medicine; ATTEND Internal Medicine Geriatric Medicine

== ENCOUNTER 2017-02-06 18:42 | Inpatient (IN) ==
[2017-02-06] MEDS ORDERED: methylPREDNISolone SOD SUC 125 MG/2 ML VIAL IV STA (19:07)
[2017-02-06] MEDS ORDERED: ALBUTEROL/IPRATROPIUM 3 ML NEB RESP TX STA (19:07)
[2017-02-06] MEDS ORDERED: methylPREDNISolone SOD SUC 125 MG/2 ML VIAL ONE (19:22)
[2017-02-06 19:26] LABS: Basophils % 0.4 % (0.0-0.8); Eosinophils # 0.1 10*3/uL (0.0-0.87); Hematocrit 26.8 VOL% (35.7-47.0); Hemoglobin 8.1 GM/DL (12.0-16.0); Immature Granulocytes % 0.5 %; Immature Granulocytes Absolute 0.04 #; Lymphocytes % 12.7 % (21.3-54.2); Mean Corpuscular HGB Conc 30.2 GM/DL (32-36); Mean Corpuscular Hemoglobin 26 PG (27-34); Mean Corpuscular Volume 84.8 FL (87-102); Mean Platelet Volume 9.8 FL (9.6-12.0); Monocytes # 0.6 10*3/uL (0.11-0.8); Monocytes % 7.1 % (1.7-12.7); Neutrophils # 6.2 10*3/uL (1.4-7.4); Neutrophils % 78.3 % (38.7-73.9); Platelet Count 283 T/CUMM (130-400); Red Blood Count 3.16 MC/CUMM (3.8-5.5); Red Cell Distribution Width 14.5 % (9.3-17.3); White Blood Count 7.9 T/CUMM (4-12)
[2017-02-06] MEDS ORDERED: ALBUTEROL 2.5 MG/3 ML NEB RESP TX ONE (19:44)
[2017-02-06] MEDS: ALBUTEROL NEB SOLN 5 MG/ML 20 ML/BOTTLE CONT NEB STA (19:52)
[2017-02-06 19:53] LABS: Blood Urea Nitrogen 13 MG/DL (7-18); Calcium 8.2 MG/DL (8.5-10.1); Glucose 139 MG/DL (74-106); Osmolality,Calculated 271.1 MOS/KG (273-304); Potassium 3.7 MMOL/L (3.5-5.1); Sodium 135 MMOL/L (136-145)
[2017-02-06 20:00] LABS: Troponin I Only 0.148 NG/ML (0.00-0.045)
[2017-02-06 21:06] LABS: ABG Base Excess -0.7 MMOL/L (-2.5-2.5); ABG HCO3 23.8 MMOL/L (20-26); ABG Oxygen Saturation 93.8 % (95-100); ABG PCO2 39.5 MM HG (35-48); ABG PH 7.393 (7.35-7.45); ABG PO2 68.5 MM HG (80-95); ABG TCO2 22.5 MMOL/L (23-27); Allen Test Positive
[2017-02-06] MEDS ORDERED: FUROSEMIDE 20 MG/2 ML VIAL IV STA (21:35)
[2017-02-06] MEDS ORDERED: FUROSEMIDE 20 MG/2 ML VIAL ONE (21:48)
[2017-02-06 22:19] LABS: Apearance,Urine CLEAR (Clear); Bilirubin,Urine Negative (Negative); Blood, Urine Negative (Negative); Glucose,Urine (UA) Negative (Negative); Hyaline Casts,Urine 17 /LPF (0-3); Ketones,Urine Negative (Negative); Mucus,Urine Occasional /LPF (Occasional); Nitrite,Urine Negative (Negative); Protein,Urine 30 MG/DL; RBC,Urine <1 /HPF (0-4); Squamous Epithelial Cell,Urine Occasional /HPF (0-10); Urine Color Yellow (Yellow); Urine Specific Gravity 1.011 (1.001-1.035); Urine Urobilinogen < 2.0 EU/DL (0.2-1.0); WBC,Urine 1 /HPF (0-6)
[2017-02-06] MEDS ORDERED: ALBUTEROL/IPRATROPIUM 3 ML NEB RESP TX PRN (22:30)
[2017-02-07] MEDS: methylPREDNISolone SOD SUC 40 MG/1 ML VIAL IV SCH ×4 (00:51→22:16)
[2017-02-07] MEDS: ACETAMINOPHEN 325 MG TABLET PO PRN (00:51)
[2017-02-07] MEDS: ALBUTEROL/IPRATROPIUM 3 ML NEB RESP TX SCH ×6 (01:18→23:56)
[2017-02-07 02:56] LABS: Basophils % 0.1 % (0.0-0.8); Hematocrit 25.9 VOL% (35.7-47.0); Hemoglobin 7.9 GM/DL (12.0-16.0); Immature Granulocytes % 0.5 %; Immature Granulocytes Absolute 0.04 #; Lymphocytes # 0.3 10*3/uL (1.4-4.0); Mean Corpuscular HGB Conc 30.5 GM/DL (32-36); Mean Corpuscular Hemoglobin 26 PG (27-34); Mean Corpuscular Volume 83.5 FL (87-102); Mean Platelet Volume 10.3 FL (9.6-12.0); Monocytes # 0.1 10*3/uL (0.11-0.8); Monocytes % 0.8 % (1.7-12.7); Neutrophils # 7.1 10*3/uL (1.4-7.4); Neutrophils % 94.6 % (38.7-73.9); Platelet Count 264 T/CUMM (130-400); Red Cell Distribution Width 14.7 % (9.3-17.3); White Blood Count 7.5 T/CUMM (4-12)
[2017-02-07 03:08] LABS: Calcium 8.1 MG/DL (8.5-10.1); Osmolality,Calculated 273.1 MOS/KG (273-304)
[2017-02-07 03:53] LABS: Lymphocytes 3 % (20-55); Segmented Neutrophils 96 % (50-85); Total Cells Counted 100
[2017-02-07 03:54] LABS: Anisocytosis 1+; Ovalocytes Few; Platelet Estimate Normal
[2017-02-07] MEDS: ALBUTEROL NEB SOLN 5 MG/ML 20 ML/BOTTLE CONT NEB STA (07:15)
[2017-02-07] MEDS ORDERED: FUROSEMIDE 20 MG/2 ML VIAL IV SCH (08:00)
[2017-02-07] MEDS ORDERED: ENOXAPARIN 40 MG/0.4 ML SYRINGE SUBCUT SCH (09:00)
[2017-02-07] MEDS: DILTIAZEM CD 120 MG CAPSULE PO SCH (09:04)
[2017-02-07] MEDS: MULTIVITAMIN (OCUVITE) TABLET PO SCH (09:04)
[2017-02-07] MEDS: FLUoxetine 10 MG CAPSULE PO SCH (09:05)
[2017-02-07] MEDS: ASPIRIN EC 81 MG TABLET PO SCH (09:05)
[2017-02-07] MEDS: POTASSIUM CHLORIDE 10 MEQ TABLET PO SCH (09:05)
[2017-02-07] MEDS: PANTOPRAZOLE 40 MG TABLET PO SCH (09:05)
[2017-02-07] MEDS: LOSARTAN 50 MG TABLET PO SCH (09:05)
[2017-02-07] MEDS: FERROUS GLUCONATE 324 MG TABLET PO SCH (09:05)
[2017-02-07] MEDS: CLOPIDOGREL 75 MG TABLET PO SCH (09:06)
[2017-02-07] MEDS: FUROSEMIDE 40 MG/4 ML VIAL IV SCH ×2 (10:28→16:44)
[2017-02-07 10:35] LABS: Free T4 (Free Thyroxine) 1.23 NG/DL (0.76-1.46); Thyroid Stimulating Hormone 0.61 uIU/ml (0.358-3.74)
[2017-02-07 11:49] LABS: Troponin I Only 0.071 NG/ML (0.00-0.045)
[2017-02-07] MEDS: ONDANSETRON 4 MG/2 ML VIAL IV PRN ×2 (16:48→20:34)
[2017-02-07] MEDS: ATORVASTATIN 40 MG TABLET PO SCH (20:35)
[2017-02-08] MEDS ORDERED: ALUMINUM/MAGNES/SIMETH MAX STR 30 ML UDCUP PO PRN (00:08)
[2017-02-08] MEDS ORDERED: PROMETHAZINE 25 MG/1 ML VIAL IM ONE (00:09)
[2017-02-08] MEDS: ALBUTEROL/IPRATROPIUM 3 ML NEB RESP TX SCH ×4 (00:29→19:48)
[2017-02-08 00:37] LABS: Basophils % 0.1 % (0.0-0.8); Hematocrit 26.7 VOL% (35.7-47.0); Hemoglobin 8.1 GM/DL (12.0-16.0); Immature Granulocytes % 1.1 %; Immature Granulocytes Absolute 0.18 #; Lymphocytes # 0.7 10*3/uL (1.4-4.0); Lymphocytes % 4.3 % (21.3-54.2); Mean Corpuscular HGB Conc 30.3 GM/DL (32-36); Mean Corpuscular Hemoglobin 26 PG (27-34); Mean Corpuscular Volume 84.8 FL (87-102); Mean Platelet Volume 10.1 FL (9.6-12.0); Monocytes # 0.6 10*3/uL (0.11-0.8); Monocytes % 3.3 % (1.7-12.7); Neutrophils # 15.4 10*3/uL (1.4-7.4); Neutrophils % 91.2 % (38.7-73.9); Platelet Count 334 T/CUMM (130-400); Red Blood Count 3.15 MC/CUMM (3.8-5.5); White Blood Count 16.9 T/CUMM (4-12)
[2017-02-08 01:03] LABS: Troponin I Only 0.64 NG/ML (0.00-0.045)
[2017-02-08 01:23] LABS: Calcium 8.6 MG/DL (8.5-10.1); Magnesium 2.1 MG/DL (1.8-2.4); Osmolality,Calculated 280.8 MOS/KG (273-304); Potassium 4.6 MMOL/L (3.5-5.1)
[2017-02-08 03:17] LABS: Band Neutrophils 2 % (0-10); Hypochromasia Slight; Lymphocytes 4 % (20-55); Ovalocytes Few; Platelet Estimate Normal; Segmented Neutrophils 89 % (50-85); Total Cells Counted 100
[2017-02-08 05:23] LABS: % Iron Saturation 4.5 % (18-50); Ferritin 18.8 ng/ml (8-252)
[2017-02-08] MEDS: methylPREDNISolone SOD SUC 40 MG/1 ML VIAL IV SCH ×3 (06:26→23:00)
[2017-02-08 06:40] LABS: INR 1.1; PT Patient Result 11.4 SECS; Partial Thromboplastin Time 25.7 SECS (0-40)
[2017-02-08] MEDS: HEPARIN DRIP 25,000 UNITS/500 ML PREMIX IV SCH (06:45)
[2017-02-08] MEDS ORDERED: SODIUM CHLORIDE 0.9% 1,000 ML IV PRN (07:48)
[2017-02-08] MEDS: ASPIRIN EC 81 MG TABLET PO SCH (09:05)
[2017-02-08] MEDS: FLUoxetine 10 MG CAPSULE PO SCH (09:05)
[2017-02-08] MEDS: PANTOPRAZOLE 40 MG TABLET PO SCH (09:05)
[2017-02-08] MEDS: POTASSIUM CHLORIDE 10 MEQ TABLET PO SCH (09:06)
[2017-02-08] MEDS: MULTIVITAMIN (OCUVITE) TABLET PO SCH (09:06)
[2017-02-08] MEDS: CLOPIDOGREL 75 MG TABLET PO SCH (09:06)
[2017-02-08] MEDS: DILTIAZEM CD 120 MG CAPSULE PO SCH (09:07)
[2017-02-08] MEDS: FERROUS GLUCONATE 324 MG TABLET PO SCH (09:07)
[2017-02-08] MEDS: LOSARTAN 50 MG TABLET PO SCH (09:07)
[2017-02-08] MEDS: FUROSEMIDE 40 MG/4 ML VIAL IV SCH ×2 (09:08→16:28)
[2017-02-08 09:23] LABS: INR 1.1; PT Patient Result 11.5 SECS; Partial Thromboplastin Time 30.3 SECS (0-40)
[2017-02-08 18:58] LABS: Hematocrit 28.7 VOL% (35.7-47.0)
[2017-02-08] MEDS: ACETAMINOPHEN 325 MG TABLET PO PRN (20:30)
[2017-02-08] MEDS: ATORVASTATIN 40 MG TABLET PO SCH (22:00)
[2017-02-08] MEDS ORDERED: SODIUM CHLORIDE 0.9% 500 ML IV ONE (22:33)
[2017-02-09] MEDS: ALBUTEROL/IPRATROPIUM 3 ML NEB RESP TX SCH ×3 (01:04→19:03)
[2017-02-09 01:23] LABS: Hematocrit 27.3 VOL% (35.7-47.0); Hemoglobin 8.4 GM/DL (12.0-16.0); Immature Granulocytes % 1.2 %; Immature Granulocytes Absolute 0.19 #; Lymphocytes # 0.5 10*3/uL (1.4-4.0); Mean Corpuscular HGB Conc 30.8 GM/DL (32-36); Mean Corpuscular Hemoglobin 26 PG (27-34); Mean Corpuscular Volume 85.6 FL (87-102); Mean Platelet Volume 9.9 FL (9.6-12.0); Monocytes # 0.7 10*3/uL (0.11-0.8); Monocytes % 4.5 % (1.7-12.7); Neutrophils # 14.3 10*3/uL (1.4-7.4); Neutrophils % 91.3 % (38.7-73.9); Platelet Count 239 T/CUMM (130-400); Red Blood Count 3.19 MC/CUMM (3.8-5.5); Red Cell Distribution Width 15.2 % (9.3-17.3); White Blood Count 15.7 T/CUMM (4-12)
[2017-02-09 02:01] LABS: Calcium 7.5 MG/DL (8.5-10.1); Magnesium 2.1 MG/DL (1.8-2.4); Osmolality,Calculated 275.4 MOS/KG (273-304); Potassium 4.1 MMOL/L (3.5-5.1)
[2017-02-09 02:44] LABS: ABG Base Excess 1.5 MMOL/L (-2.5-2.5); ABG HCO3 27.9 MMOL/L (20-26); ABG Oxygen Saturation 90.2 % (95-100); ABG PCO2 54.1 MM HG (35-48); ABG PH 7.331 (7.35-7.45); ABG PO2 60.7 MM HG (80-95); ABG TCO2 29.6 MMOL/L (23-27); Allen Test Positive
[2017-02-09 05:11] LABS: Band Neutrophils 1 % (0-10); Lymphocytes 4 % (20-55); Myelocytes 2 %; Segmented Neutrophils 91 % (50-85); Total Cells Counted 100
[2017-02-09 05:12] LABS: Anisocytosis 1+; Hypochromasia 1+; Ovalocytes 1+; Platelet Estimate Normal; Target Cells Few
[2017-02-09] MEDS: HEPARIN DRIP 25,000 UNITS/500 ML PREMIX IV SCH (06:40)
[2017-02-09] MEDS: methylPREDNISolone SOD SUC 40 MG/1 ML VIAL IV SCH ×2 (07:15→16:28)
[2017-02-09] MEDS ORDERED: FUROSEMIDE 20 MG/2 ML VIAL ONE (08:53)
[2017-02-09] MEDS: FLUoxetine 10 MG CAPSULE PO SCH (09:08)
[2017-02-09] MEDS: FUROSEMIDE 40 MG/4 ML VIAL IV SCH (09:08)
[2017-02-09] MEDS: CLOPIDOGREL 75 MG TABLET PO SCH (09:08)
[2017-02-09] MEDS: PANTOPRAZOLE 40 MG TABLET PO SCH (09:08)
[2017-02-09] MEDS: MULTIVITAMIN (OCUVITE) TABLET PO SCH (09:09)
[2017-02-09] MEDS: DILTIAZEM CD 120 MG CAPSULE PO SCH ×2 (09:09→20:50)
[2017-02-09] MEDS: ASPIRIN EC 81 MG TABLET PO SCH (09:09)
[2017-02-09] MEDS: POTASSIUM CHLORIDE 10 MEQ TABLET PO SCH (09:09)
[2017-02-09] MEDS: FERROUS GLUCONATE 324 MG TABLET PO SCH (09:09)
[2017-02-09] MEDS: LOSARTAN 50 MG TABLET PO SCH (09:09)
[2017-02-09] MEDS: ENOXAPARIN 40 MG/0.4 ML SYRINGE SUBCUT SCH (13:16)
[2017-02-09] MEDS ORDERED: ZALEPLON 5 MG CAPSULE PO PRN (16:57)
[2017-02-09] MEDS ORDERED: guaiFENesin/DM ER 600-30 MG TABLET PO PRN (16:57)
[2017-02-09] MEDS ORDERED: LACTULOSE 20 GM/30 ML UDCUP PO PRN (16:57)
[2017-02-09] MEDS ORDERED: DOCUSATE SODIUM 100 MG CAPSULE PO PRN (16:57)
[2017-02-09] MEDS: ATORVASTATIN 40 MG TABLET PO SCH (20:51)
[2017-02-09] MEDS: ACETAMINOPHEN 325 MG TABLET PO PRN (20:57)
[2017-02-10] MEDS: ACETAMINOPHEN 325 MG TABLET PO PRN ×2 (00:10→21:30)
[2017-02-10] MEDS: methylPREDNISolone SOD SUC 40 MG/1 ML VIAL IV SCH (00:11)
[2017-02-10] MEDS: ALBUTEROL/IPRATROPIUM 3 ML NEB RESP TX SCH ×4 (00:21→20:17)
[2017-02-10 05:30] LABS: Basophils % 0.1 % (0.0-0.8); Hematocrit 27.1 VOL% (35.7-47.0); Hemoglobin 8.4 GM/DL (12.0-16.0); Immature Granulocytes % 1.2 %; Immature Granulocytes Absolute 0.17 #; Lymphocytes # 0.5 10*3/uL (1.4-4.0); Lymphocytes % 3.4 % (21.3-54.2); Mean Corpuscular Hemoglobin 27 PG (27-34); Mean Corpuscular Volume 86.3 FL (87-102); Mean Platelet Volume 10.5 FL (9.6-12.0); Monocytes # 0.4 10*3/uL (0.11-0.8); Monocytes % 2.7 % (1.7-12.7); Neutrophils # 13.2 10*3/uL (1.4-7.4); Neutrophils % 92.6 % (38.7-73.9); Platelet Count 240 T/CUMM (130-400); Red Blood Count 3.14 MC/CUMM (3.8-5.5); Red Cell Distribution Width 15.5 % (9.3-17.3); White Blood Count 14.2 T/CUMM (4-12)
[2017-02-10 06:03] LABS: Lymphocytes 1 % (20-55); Platelet Estimate Adequate; Segmented Neutrophils 97 % (50-85); Total Cells Counted 100
[2017-02-10 06:04] LABS: Hypochromasia 1+
[2017-02-10 06:05] LABS: Ovalocytes Slight
[2017-02-10 06:16] LABS: Calcium 8.3 MG/DL (8.5-10.1); Osmolality,Calculated 284.2 MOS/KG (273-304); Potassium 4.7 MMOL/L (3.5-5.1)
[2017-02-10 06:17] LABS: Troponin I Only 0.671 NG/ML (0.00-0.045)
[2017-02-10] MEDS ORDERED: FUROSEMIDE 40 MG/4 ML VIAL IV SCH (09:00)
[2017-02-10] MEDS: FUROSEMIDE 40 MG TABLET PO SCH (09:43)
[2017-02-10] MEDS: FLUoxetine 10 MG CAPSULE PO SCH (09:43)
[2017-02-10] MEDS: LOSARTAN 50 MG TABLET PO SCH (09:43)
[2017-02-10] MEDS: DILTIAZEM CD 120 MG CAPSULE PO SCH ×2 (09:43→21:25)
[2017-02-10] MEDS: metOLazone 5 MG TABLET PO SCH (09:43)
[2017-02-10] MEDS: POTASSIUM CHLORIDE 10 MEQ TABLET PO SCH (09:44)
[2017-02-10] MEDS: CLOPIDOGREL 75 MG TABLET PO SCH (09:44)
[2017-02-10] MEDS: MULTIVITAMIN (OCUVITE) TABLET PO SCH (09:44)
[2017-02-10] MEDS: PANTOPRAZOLE 40 MG TABLET PO SCH (09:45)
[2017-02-10] MEDS: ASPIRIN EC 81 MG TABLET PO SCH (09:45)
[2017-02-10] MEDS: FERROUS GLUCONATE 324 MG TABLET PO SCH (09:50)
[2017-02-10] MEDS: ENOXAPARIN 40 MG/0.4 ML SYRINGE SUBCUT SCH (14:30)
[2017-02-10] MEDS: ATORVASTATIN 40 MG TABLET PO SCH (21:31)
[2017-02-11] MEDS: ALBUTEROL/IPRATROPIUM 3 ML NEB RESP TX SCH ×2 (01:27→08:03)
[2017-02-11 05:42] LABS: Basophils % 0.1 % (0.0-0.8); Hematocrit 26.6 VOL% (35.7-47.0); Hemoglobin 8.5 GM/DL (12.0-16.0); Immature Granulocytes Absolute 0.13 #; Lymphocytes # 0.8 10*3/uL (1.4-4.0); Lymphocytes % 6.3 % (21.3-54.2); Mean Corpuscular Hemoglobin 27 PG (27-34); Mean Corpuscular Volume 84.2 FL (87-102); Mean Platelet Volume 10.2 FL (9.6-12.0); Monocytes % 7.7 % (1.7-12.7); Neutrophils # 10.8 10*3/uL (1.4-7.4); Neutrophils % 84.9 % (38.7-73.9); Platelet Count 247 T/CUMM (130-400); Red Blood Count 3.16 MC/CUMM (3.8-5.5); Red Cell Distribution Width 15.7 % (9.3-17.3); White Blood Count 12.8 T/CUMM (4-12)
[2017-02-11 06:14] LABS: Calcium 8.6 MG/DL (8.5-10.1); Magnesium 2.6 MG/DL (1.8-2.4); Osmolality,Calculated 284.2 MOS/KG (273-304); Potassium 4.1 MMOL/L (3.5-5.1)
[2017-02-11] MEDS ORDERED: predniSONE 20 MG TABLET PO SCH (09:00)
[2017-02-11] MEDS: FERROUS GLUCONATE 324 MG TABLET PO SCH (09:07)
[2017-02-11] MEDS: FUROSEMIDE 40 MG TABLET PO SCH (09:07)
[2017-02-11] MEDS: PANTOPRAZOLE 40 MG TABLET PO SCH (09:07)
[2017-02-11] MEDS: MULTIVITAMIN (OCUVITE) TABLET PO SCH (09:07)
[2017-02-11] MEDS: ASPIRIN EC 81 MG TABLET PO SCH (09:07)
[2017-02-11] MEDS: CLOPIDOGREL 75 MG TABLET PO SCH (09:07)
[2017-02-11] MEDS: metOLazone 5 MG TABLET PO SCH (09:07)
[2017-02-11] MEDS: POTASSIUM CHLORIDE 10 MEQ TABLET PO SCH (09:07)
[2017-02-11] MEDS: DILTIAZEM CD 120 MG CAPSULE PO SCH (09:07)
[2017-02-11] MEDS: LOSARTAN 50 MG TABLET PO SCH (09:07)
[2017-02-11] MEDS: FLUoxetine 10 MG CAPSULE PO SCH (09:07)
[2017-02-11] MEDS: ENOXAPARIN 40 MG/0.4 ML SYRINGE SUBCUT SCH (11:04)
[2017-02-11 11:32] VITALS: BP 106/57
== END 2017-02-11 13:08 | disposition home health service (06) | DRG 191 ==
LOC: N.ED 18:42 → N.EDINP 18:42 → SUATTDRO 22:20 → N.5E 23:07 → SUPCPDRO 02-07 16:12 → N.SDSINP 02-08 06:05 → N.CC 02-08 06:05 → N.TELES 02-09 12:23
PROVIDERS: ADMIT Internal Medicine Nephrology; ATTEND Internal Medicine

== ENCOUNTER 2017-04-17 04:17 | Inpatient (IN) ==
[2017-04-17] MEDS ORDERED: KETOROLAC 30 MG/1 ML VIAL IV STA (04:44)
[2017-04-17] MEDS ORDERED: KETOROLAC 30 MG/1 ML VIAL ONE (04:57)
[2017-04-17 04:58] LABS: Basophils % 0.5 % (0.0-0.8); Eosinophils # 0.1 10*3/uL (0.0-0.87); Eosinophils % 1.2 % (0.00-10.9); Hematocrit 36.3 VOL% (35.7-47.0); Hemoglobin 11.9 GM/DL (12.0-16.0); Immature Granulocytes % 0.6 %; Immature Granulocytes Absolute 0.04 #; Lymphocytes # 1.4 10*3/uL (1.4-4.0); Lymphocytes % 21.4 % (21.3-54.2); Mean Corpuscular HGB Conc 32.8 GM/DL (32-36); Mean Corpuscular Hemoglobin 27 PG (27-34); Mean Corpuscular Volume 81.9 FL (87-102); Mean Platelet Volume 9.8 FL (9.6-12.0); Monocytes # 0.6 10*3/uL (0.11-0.8); Monocytes % 8.7 % (1.7-12.7); Neutrophils # 4.4 10*3/uL (1.4-7.4); Neutrophils % 67.6 % (38.7-73.9); Platelet Count 273 T/CUMM (130-400); Red Blood Count 4.43 MC/CUMM (3.8-5.5); Red Cell Distribution Width 16.2 % (9.3-17.3); White Blood Count 6.4 T/CUMM (4-12)
[2017-04-17 05:28] LABS: Albumin 3.7 G/DL (3.4-5.0); Bilirubin,Total 0.4 MG/DL (0.2-1.0); Calcium 8.7 MG/DL (8.5-10.1); Osmolality,Calculated 271.2 MOS/KG (273-304); Total Protein 6.8 G/DL (6.4-8.3)
[2017-04-17] MEDS ORDERED: ALBUTEROL/IPRATROPIUM 3 ML NEB RESP TX STA (06:07)
[2017-04-17] MEDS ORDERED: methylPREDNISolone SOD SUC 125 MG/2 ML VIAL IV STA (06:07)
[2017-04-17] MEDS ORDERED: methylPREDNISolone SOD SUC 125 MG/2 ML VIAL ONE (06:15)
[2017-04-17] MEDS ORDERED: ONDANSETRON 4 MG/2 ML VIAL IV PRN (06:19)
[2017-04-17] MEDS ORDERED: POTASSIUM CHLORIDE 20 MEQ TABLET PO ONE ×2 (07:00→13:06)
[2017-04-17] MEDS: ALBUTEROL/IPRATROPIUM 3 ML NEB RESP TX SCH ×3 (07:45→19:54)
[2017-04-17] MEDS ORDERED: metOLazone 5 MG TABLET PO SCH (09:00)
[2017-04-17] MEDS ORDERED: FUROSEMIDE 40 MG TABLET PO SCH (09:00)
[2017-04-17] MEDS ORDERED: MAGNESIUM SULF RIDER 2 GM in PREMIX 1 EACH IV ONE (09:00)
[2017-04-17] MEDS: DILTIAZEM CD 120 MG CAPSULE PO SCH (09:58)
[2017-04-17] MEDS: cefTRIAXone 1,000 MG in SYRINGE 1 EACH IV SCH (09:58)
[2017-04-17] MEDS: ENOXAPARIN 40 MG/0.4 ML SYRINGE SUBCUT SCH (09:58)
[2017-04-17] MEDS: FLUoxetine 10 MG CAPSULE PO SCH (09:58)
[2017-04-17] MEDS: CLOPIDOGREL 75 MG TABLET PO SCH (09:59)
[2017-04-17] MEDS: PANTOPRAZOLE 40 MG TABLET PO SCH (09:59)
[2017-04-17] MEDS: FERROUS GLUCONATE 324 MG TABLET PO SCH (09:59)
[2017-04-17] MEDS: MULTIVITAMIN (OCUVITE) TABLET PO SCH (09:59)
[2017-04-17] MEDS: POTASSIUM CHLORIDE 20 MEQ TABLET PO SCH (09:59)
[2017-04-17] MEDS: ASPIRIN EC 81 MG TABLET PO SCH (09:59)
[2017-04-17] MEDS ORDERED: SODIUM CHLORIDE 0.9% 500 ML IV ONE (13:07)
[2017-04-17] MEDS: methylPREDNISolone SOD SUC 40 MG/1 ML VIAL IV SCH ×2 (14:32→21:16)
[2017-04-17] MEDS: SODIUM CHLORIDE 0.9% 1,000 ML IV SCH (14:32)
[2017-04-18] MEDS: SODIUM CHLORIDE 0.9% 1,000 ML IV SCH ×2 (03:55→16:35)
[2017-04-18 05:13] LABS: Hematocrit 30.7 VOL% (35.7-47.0); Hemoglobin 9.9 GM/DL (12.0-16.0); Immature Granulocytes % 0.6 %; Immature Granulocytes Absolute 0.04 #; Lymphocytes # 0.9 10*3/uL (1.4-4.0); Lymphocytes % 13.1 % (21.3-54.2); Mean Corpuscular HGB Conc 32.2 GM/DL (32-36); Mean Corpuscular Hemoglobin 27 PG (27-34); Mean Corpuscular Volume 83.4 FL (87-102); Mean Platelet Volume 10.2 FL (9.6-12.0); Monocytes # 0.3 10*3/uL (0.11-0.8); Monocytes % 3.7 % (1.7-12.7); Neutrophils # 5.6 10*3/uL (1.4-7.4); Neutrophils % 82.6 % (38.7-73.9); Platelet Count 236 T/CUMM (130-400); Red Blood Count 3.68 MC/CUMM (3.8-5.5); Red Cell Distribution Width 15.9 % (9.3-17.3); White Blood Count 6.8 T/CUMM (4-12)
[2017-04-18 05:47] LABS: Albumin 3.2 G/DL (3.4-5.0); Bilirubin,Total 0.9 MG/DL (0.2-1.0); Calcium 7.9 MG/DL (8.5-10.1); Osmolality,Calculated 277.2 MOS/KG (273-304); Potassium 3.6 MMOL/L (3.5-5.1); Total Protein 6.4 G/DL (6.4-8.3)
[2017-04-18 05:54] LABS: Osmolality,Calculated 275.2 MOS/KG (273-304); Potassium 3.4 MMOL/L (3.5-5.1)
[2017-04-18] MEDS: ENOXAPARIN 40 MG/0.4 ML SYRINGE SUBCUT SCH (06:16)
[2017-04-18] MEDS: methylPREDNISolone SOD SUC 40 MG/1 ML VIAL IV SCH ×3 (06:17→21:10)
[2017-04-18] MEDS: cefTRIAXone 1,000 MG in SYRINGE 1 EACH IV SCH (06:18)
[2017-04-18] MEDS: ALBUTEROL/IPRATROPIUM 3 ML NEB RESP TX SCH ×4 (07:30→19:31)
[2017-04-18] MEDS: DILTIAZEM CD 120 MG CAPSULE PO SCH (09:50)
[2017-04-18] MEDS: FLUoxetine 10 MG CAPSULE PO SCH (09:50)
[2017-04-18] MEDS: MULTIVITAMIN (OCUVITE) TABLET PO SCH (09:53)
[2017-04-18] MEDS: CLOPIDOGREL 75 MG TABLET PO SCH (09:53)
[2017-04-18] MEDS: FERROUS GLUCONATE 324 MG TABLET PO SCH (09:53)
[2017-04-18] MEDS: POTASSIUM CHLORIDE 20 MEQ TABLET PO SCH (09:53)
[2017-04-18] MEDS: ASPIRIN EC 81 MG TABLET PO SCH (09:53)
[2017-04-18] MEDS: PANTOPRAZOLE 40 MG TABLET PO SCH (09:53)
[2017-04-18] MEDS ORDERED: GLUCAGON 1 MG VIAL IM PRN (10:57)
[2017-04-18] MEDS ORDERED: DEXTROSE 50% 25 GM/50 ML VIAL IV PRN (10:57)
[2017-04-18] MEDS: INSULIN LISPRO 100 UNIT/ML SUBCUT SCH ×3 (11:54→21:31)
[2017-04-19] MEDS: ALBUTEROL/IPRATROPIUM 3 ML NEB RESP TX SCH ×4 (01:11→19:36)
[2017-04-19] MEDS: SODIUM CHLORIDE 0.9% 1,000 ML IV SCH (06:00)
[2017-04-19] MEDS: methylPREDNISolone SOD SUC 40 MG/1 ML VIAL IV SCH (06:09)
[2017-04-19] MEDS: cefTRIAXone 1,000 MG in SYRINGE 1 EACH IV SCH (06:10)
[2017-04-19] MEDS: ENOXAPARIN 40 MG/0.4 ML SYRINGE SUBCUT SCH (06:13)
[2017-04-19 06:56] LABS: Calcium 7.9 MG/DL (8.5-10.1); Osmolality,Calculated 279.8 MOS/KG (273-304); Potassium 3.9 MMOL/L (3.5-5.1)
[2017-04-19] MEDS: INSULIN LISPRO 100 UNIT/ML SUBCUT SCH ×4 (08:57→21:13)
[2017-04-19] MEDS: ASPIRIN EC 81 MG TABLET PO SCH (09:51)
[2017-04-19] MEDS: FERROUS GLUCONATE 324 MG TABLET PO SCH (09:52)
[2017-04-19] MEDS: DILTIAZEM CD 120 MG CAPSULE PO SCH (09:52)
[2017-04-19] MEDS: POTASSIUM CHLORIDE 20 MEQ TABLET PO SCH (09:54)
[2017-04-19] MEDS: CLOPIDOGREL 75 MG TABLET PO SCH (09:54)
[2017-04-19] MEDS: MULTIVITAMIN (OCUVITE) TABLET PO SCH (09:54)
[2017-04-19] MEDS: PANTOPRAZOLE 40 MG TABLET PO SCH (09:54)
[2017-04-19] MEDS: FLUoxetine 10 MG CAPSULE PO SCH (09:55)
[2017-04-19] MEDS: predniSONE 20 MG TABLET PO SCH (11:59)
[2017-04-19] MEDS ORDERED: BISACODYL 5 MG TABLET PO ONE (13:56)
[2017-04-19] MEDS: POLYETHYLENE GLYCOL POWDER 17 GM PACK PO SCH (15:35)
[2017-04-20] MEDS: ALBUTEROL/IPRATROPIUM 3 ML NEB RESP TX SCH ×4 (01:02→19:41)
[2017-04-20 05:49] LABS: Calcium 7.9 MG/DL (8.5-10.1); Magnesium 2.2 MG/DL (1.8-2.4); Osmolality,Calculated 277.8 MOS/KG (273-304); Potassium 3.7 MMOL/L (3.5-5.1)
[2017-04-20] MEDS: ENOXAPARIN 40 MG/0.4 ML SYRINGE SUBCUT SCH (06:41)
[2017-04-20] MEDS: cefTRIAXone 1,000 MG in SYRINGE 1 EACH IV SCH (06:42)
[2017-04-20] MEDS: INSULIN LISPRO 100 UNIT/ML SUBCUT SCH ×4 (07:12→22:18)
[2017-04-20] MEDS: DILTIAZEM CD 120 MG CAPSULE PO SCH (08:35)
[2017-04-20] MEDS: ASPIRIN EC 81 MG TABLET PO SCH (08:36)
[2017-04-20] MEDS: FERROUS GLUCONATE 324 MG TABLET PO SCH (08:36)
[2017-04-20] MEDS: BISACODYL 5 MG TABLET PO SCH (08:36)
[2017-04-20] MEDS: CLOPIDOGREL 75 MG TABLET PO SCH (08:36)
[2017-04-20] MEDS: predniSONE 20 MG TABLET PO SCH (08:36)
[2017-04-20] MEDS: PANTOPRAZOLE 40 MG TABLET PO SCH (08:36)
[2017-04-20] MEDS: MULTIVITAMIN (OCUVITE) TABLET PO SCH (08:36)
[2017-04-20] MEDS: FLUoxetine 10 MG CAPSULE PO SCH (08:36)
[2017-04-20] MEDS: POLYETHYLENE GLYCOL POWDER 17 GM PACK PO SCH (08:57)
[2017-04-20] MEDS: ALBUTEROL 2.5 MG/3 ML NEB RESP TX PRN ×3 (09:49→22:36)
[2017-04-20] MEDS ORDERED: diphenhydrAMINE 25 MG/10 ML UDCUP PO PRN ×2 (17:42)
[2017-04-21] MEDS: ALBUTEROL/IPRATROPIUM 3 ML NEB RESP TX SCH (02:54)
[2017-04-21] MEDS: ALBUTEROL 2.5 MG/3 ML NEB RESP TX PRN (03:35)
[2017-04-21] MEDS ORDERED: ALBUTEROL 2.5 MG/3 ML NEB RESP TX ONE (06:17)
[2017-04-21] MEDS ORDERED: methylPREDNISolone SOD SUC 125 MG/2 ML VIAL ONE (06:29)
[2017-04-21] MEDS ORDERED: FUROSEMIDE 40 MG/4 ML VIAL IV ONE (06:31)
[2017-04-21] MEDS ORDERED: FUROSEMIDE 40 MG/4 ML VIAL ONE (06:33)
[2017-04-21] MEDS ORDERED: LEVALBUTEROL 1.25 MG/3 ML NEB RESP TX PRN ×2 (06:37→06:44)
[2017-04-21 06:38] LABS: Basophils % 0.1 % (0.0-0.8); Hematocrit 27.9 VOL% (35.7-47.0); Hemoglobin 9.1 GM/DL (12.0-16.0); Immature Granulocytes % 1.9 %; Immature Granulocytes Absolute 0.19 #; Lymphocytes # 1.1 10*3/uL (1.4-4.0); Lymphocytes % 10.8 % (21.3-54.2); Mean Corpuscular HGB Conc 32.6 GM/DL (32-36); Mean Corpuscular Hemoglobin 27 PG (27-34); Mean Corpuscular Volume 81.8 FL (87-102); Mean Platelet Volume 11.1 FL (9.6-12.0); Monocytes # 0.8 10*3/uL (0.11-0.8); Monocytes % 8.5 % (1.7-12.7); Neutrophils # 7.8 10*3/uL (1.4-7.4); Neutrophils % 78.7 % (38.7-73.9); Platelet Count 208 T/CUMM (130-400); Red Blood Count 3.41 MC/CUMM (3.8-5.5); White Blood Count 9.9 T/CUMM (4-12)
[2017-04-21 06:46] LABS: ABG Base Excess 2.8 MMOL/L (-2.5-2.5); ABG HCO3 26.8 MMOL/L (20-26); ABG Oxygen Saturation 88.3 % (95-100); ABG PCO2 43.5 MM HG (35-48); ABG PH 7.413 (7.35-7.45); ABG PO2 54.5 MM HG (80-95); ABG TCO2 25.5 MMOL/L (23-27)
[2017-04-21] MEDS: LEVALBUTEROL 1.25 MG/3 ML NEB RESP TX SCH ×3 (06:58→19:37)
[2017-04-21] MEDS ORDERED: methylPREDNISolone SOD SUC 125 MG/2 ML VIAL IV ONE (07:00)
[2017-04-21] MEDS ORDERED: ALBUTEROL 2.5 MG/3 ML NEB RESP TX SCH (07:00)
[2017-04-21] MEDS: INSULIN LISPRO 100 UNIT/ML SUBCUT SCH ×4 (08:10→21:01)
[2017-04-21] MEDS: cefTRIAXone 1,000 MG in SYRINGE 1 EACH IV SCH (08:16)
[2017-04-21] MEDS: ASPIRIN EC 81 MG TABLET PO SCH (08:17)
[2017-04-21] MEDS: FLUoxetine 10 MG CAPSULE PO SCH (08:17)
[2017-04-21] MEDS: CLOPIDOGREL 75 MG TABLET PO SCH (08:17)
[2017-04-21] MEDS: BISACODYL 5 MG TABLET PO SCH (08:17)
[2017-04-21] MEDS: POLYETHYLENE GLYCOL POWDER 17 GM PACK PO SCH (08:17)
[2017-04-21] MEDS: predniSONE 20 MG TABLET PO SCH (08:20)
[2017-04-21] MEDS: MULTIVITAMIN (OCUVITE) TABLET PO SCH (08:20)
[2017-04-21] MEDS: DILTIAZEM CD 120 MG CAPSULE PO SCH (08:20)
[2017-04-21] MEDS: PANTOPRAZOLE 40 MG TABLET PO SCH (08:20)
[2017-04-21] MEDS: FERROUS GLUCONATE 324 MG TABLET PO SCH (08:21)
[2017-04-21] MEDS: ENOXAPARIN 40 MG/0.4 ML SYRINGE SUBCUT SCH (08:24)
[2017-04-22] MEDS: LEVALBUTEROL 1.25 MG/3 ML NEB RESP TX SCH ×5 (00:18→23:56)
[2017-04-22 06:02] LABS: Basophils % 0.1 % (0.0-0.8); Hematocrit 29.1 VOL% (35.7-47.0); Hemoglobin 9.6 GM/DL (12.0-16.0); Immature Granulocytes % 1.6 %; Immature Granulocytes Absolute 0.16 #; Lymphocytes # 0.9 10*3/uL (1.4-4.0); Lymphocytes % 8.4 % (21.3-54.2); Mean Corpuscular Hemoglobin 27 PG (27-34); Mean Platelet Volume 11.1 FL (9.6-12.0); Monocytes # 0.5 10*3/uL (0.11-0.8); Monocytes % 4.9 % (1.7-12.7); Neutrophils # 8.6 10*3/uL (1.4-7.4); Platelet Count 220 T/CUMM (130-400); Red Blood Count 3.55 MC/CUMM (3.8-5.5); Red Cell Distribution Width 16.8 % (9.3-17.3); White Blood Count 10.1 T/CUMM (4-12)
[2017-04-22 06:32] LABS: Calcium 8.3 MG/DL (8.5-10.1); Magnesium 2.2 MG/DL (1.8-2.4); Potassium 3.4 MMOL/L (3.5-5.1)
[2017-04-22] MEDS: INSULIN LISPRO 100 UNIT/ML SUBCUT SCH ×4 (08:42→21:17)
[2017-04-22] MEDS: FUROSEMIDE 40 MG TABLET PO SCH (09:48)
[2017-04-22] MEDS: cefTRIAXone 1,000 MG in SYRINGE 1 EACH IV SCH (09:48)
[2017-04-22] MEDS: MULTIVITAMIN (OCUVITE) TABLET PO SCH (09:48)
[2017-04-22] MEDS: POTASSIUM CHLORIDE 20 MEQ TABLET PO PRN ×3 (09:49→21:19)
[2017-04-22] MEDS: BISACODYL 5 MG TABLET PO SCH (09:49)
[2017-04-22] MEDS: predniSONE 20 MG TABLET PO SCH (09:49)
[2017-04-22] MEDS: DILTIAZEM CD 120 MG CAPSULE PO SCH (09:49)
[2017-04-22] MEDS: ENOXAPARIN 40 MG/0.4 ML SYRINGE SUBCUT SCH (09:49)
[2017-04-22] MEDS: FERROUS GLUCONATE 324 MG TABLET PO SCH (09:49)
[2017-04-22] MEDS: ASPIRIN EC 81 MG TABLET PO SCH (09:49)
[2017-04-22] MEDS: CLOPIDOGREL 75 MG TABLET PO SCH (09:49)
[2017-04-22] MEDS: FLUoxetine 10 MG CAPSULE PO SCH (09:49)
[2017-04-22] MEDS: PANTOPRAZOLE 40 MG TABLET PO SCH (09:49)
[2017-04-22] MEDS: POLYETHYLENE GLYCOL POWDER 17 GM PACK PO SCH (09:50)
[2017-04-23] MEDS: LEVALBUTEROL 1.25 MG/3 ML NEB RESP TX SCH ×3 (07:21→20:39)
[2017-04-23] MEDS: INSULIN LISPRO 100 UNIT/ML SUBCUT SCH ×4 (08:11→20:43)
[2017-04-23] MEDS: BISACODYL 5 MG TABLET PO SCH (09:06)
[2017-04-23] MEDS: ASPIRIN EC 81 MG TABLET PO SCH (09:08)
[2017-04-23] MEDS: PANTOPRAZOLE 40 MG TABLET PO SCH (09:08)
[2017-04-23] MEDS: predniSONE 20 MG TABLET PO SCH (09:09)
[2017-04-23] MEDS: FUROSEMIDE 40 MG TABLET PO SCH (09:09)
[2017-04-23] MEDS: DILTIAZEM CD 120 MG CAPSULE PO SCH (09:10)
[2017-04-23] MEDS: FLUoxetine 10 MG CAPSULE PO SCH (09:10)
[2017-04-23] MEDS: CLOPIDOGREL 75 MG TABLET PO SCH (09:11)
[2017-04-23] MEDS: FERROUS GLUCONATE 324 MG TABLET PO SCH (09:11)
[2017-04-23] MEDS: ENOXAPARIN 40 MG/0.4 ML SYRINGE SUBCUT SCH (09:14)
[2017-04-23] MEDS: cefTRIAXone 1,000 MG in SYRINGE 1 EACH IV SCH (09:15)
[2017-04-23] MEDS: POLYETHYLENE GLYCOL POWDER 17 GM PACK PO SCH (09:23)
[2017-04-23] MEDS: MULTIVITAMIN (OCUVITE) TABLET PO SCH (09:23)
[2017-04-23] MEDS: POTASSIUM CHLORIDE 20 MEQ TABLET PO SCH ×3 (12:01→21:06)
[2017-04-24] MEDS: LEVALBUTEROL 1.25 MG/3 ML NEB RESP TX SCH ×2 (01:51→07:06)
[2017-04-24 05:59] LABS: Calcium 8.3 MG/DL (8.5-10.1); Osmolality,Calculated 279.4 MOS/KG (273-304); Potassium 3.4 MMOL/L (3.5-5.1)
[2017-04-24] MEDS: INSULIN LISPRO 100 UNIT/ML SUBCUT SCH ×2 (07:30→12:12)
[2017-04-24] MEDS: DILTIAZEM CD 120 MG CAPSULE PO SCH (08:59)
[2017-04-24] MEDS: PANTOPRAZOLE 40 MG TABLET PO SCH (08:59)
[2017-04-24] MEDS: BISACODYL 5 MG TABLET PO SCH (08:59)
[2017-04-24] MEDS: predniSONE 20 MG TABLET PO SCH (08:59)
[2017-04-24] MEDS: FLUoxetine 10 MG CAPSULE PO SCH (09:00)
[2017-04-24] MEDS: MULTIVITAMIN (OCUVITE) TABLET PO SCH (09:00)
[2017-04-24] MEDS: FUROSEMIDE 40 MG TABLET PO SCH (09:01)
[2017-04-24] MEDS: FERROUS GLUCONATE 324 MG TABLET PO SCH (09:01)
[2017-04-24] MEDS: CLOPIDOGREL 75 MG TABLET PO SCH (09:01)
[2017-04-24] MEDS: ASPIRIN EC 81 MG TABLET PO SCH (09:01)
[2017-04-24] MEDS: POLYETHYLENE GLYCOL POWDER 17 GM PACK PO SCH (09:02)
[2017-04-24] MEDS: ENOXAPARIN 40 MG/0.4 ML SYRINGE SUBCUT SCH (09:02)
[2017-04-24 12:14] VITALS: BP 172/61
== END 2017-04-24 13:48 | disposition swing bed (61) | DRG 190 ==
LOC: EDBD → EDUNIT# → N.ED 04:17 → SUATTDRO 06:19 → N.EDINP 06:19 → N.2E 06:47
PROVIDERS: ADMIT Internal Medicine; ATTEND Internal Medicine

== ENCOUNTER 2017-04-24 20:34 | Inpatient (IN) ==
[2017-04-24] MEDS ORDERED: ADENOSINE 6 MG/2 ML VIAL IV STA ×2 (20:48→21:07)
[2017-04-24] MEDS ORDERED: ADENOSINE 6 MG/2 ML VIAL ONE ×2 (20:52→21:00)
[2017-04-24] MEDS ORDERED: DILTIAZEM 50 MG/10 ML VIAL IV STA (21:06)
[2017-04-24] MEDS ORDERED: DILTIAZEM 100 MG VIAL.ADD IV ONE (21:10)
[2017-04-24] MEDS ORDERED: DILTIAZEM 50 MG/10 ML VIAL IV ONE (21:11)
[2017-04-24 21:22] LABS: Basophils % 0.1 % (0.0-0.8); Eosinophils % 0.1 % (0.00-10.9); Hematocrit 31.8 VOL% (35.7-47.0); Immature Granulocytes % 2.3 %; Immature Granulocytes Absolute 0.31 #; Lymphocytes # 1.8 10*3/uL (1.4-4.0); Lymphocytes % 13.6 % (21.3-54.2); Mean Corpuscular HGB Conc 31.4 GM/DL (32-36); Mean Corpuscular Hemoglobin 27 PG (27-34); Mean Corpuscular Volume 84.6 FL (87-102); Mean Platelet Volume 10.6 FL (9.6-12.0); Monocytes # 0.9 10*3/uL (0.11-0.8); Monocytes % 6.4 % (1.7-12.7); Neutrophils # 10.4 10*3/uL (1.4-7.4); Neutrophils % 77.5 % (38.7-73.9); Platelet Count 369 T/CUMM (130-400); Red Blood Count 3.76 MC/CUMM (3.8-5.5); Red Cell Distribution Width 17.1 % (9.3-17.3); White Blood Count 13.4 T/CUMM (4-12)
[2017-04-24 21:22] LABS: Troponin I Only 0.063 NG/ML (0.00-0.045)
[2017-04-24 21:29] LABS: INR 1.1; PT Patient Result 11.1 SECS
[2017-04-24] MEDS: DILTIAZEM INJ 100 MG in SODIUM CHLORIDE 0.9% 100 ML IV SCH (21:30)
[2017-04-24 21:32] LABS: Calcium 8.2 MG/DL (8.5-10.1); Magnesium 1.8 MG/DL (1.8-2.4); Osmolality,Calculated 276.8 MOS/KG (273-304); Potassium 3.3 MMOL/L (3.5-5.1)
[2017-04-25] MEDS ORDERED: FUROSEMIDE 40 MG/4 ML VIAL IV STA (00:09)
[2017-04-25] MEDS ORDERED: DILTIAZEM 100 MG VIAL.ADD IV STA (00:36)
[2017-04-25] MEDS ORDERED: FUROSEMIDE 20 MG/2 ML VIAL ONE (01:35)
[2017-04-25] MEDS ORDERED: ONDANSETRON 4 MG/2 ML VIAL IV PRN (02:21)
[2017-04-25] MEDS ORDERED: ALBUTEROL 2.5 MG/3 ML NEB RESP TX PRN (02:21)
[2017-04-25] MEDS ORDERED: methylPREDNISolone SOD SUC 40 MG/1 ML VIAL IV SCH (02:21)
[2017-04-25] MEDS ORDERED: POTASSIUM CHLORIDE 20 MEQ TABLET PO ONE ×2 (02:21→06:58)
[2017-04-25] MEDS ORDERED: MORPHINE 2 MG/1 ML SYRINGE IV PRN (02:21)
[2017-04-25] MEDS: ENOXAPARIN 80 MG/0.8 ML SYRINGE SUBCUT SCH (03:25)
[2017-04-25] MEDS ORDERED: SODIUM CHLORIDE 0.9% 1,000 ML IV SCH (03:30)
[2017-04-25] MEDS: ALBUTEROL 2.5 MG/3 ML NEB RESP TX SCH ×5 (03:46→19:21)
[2017-04-25] MEDS: DILTIAZEM INJ 100 MG in SODIUM CHLORIDE 0.9% 100 ML IV SCH ×2 (03:50→21:51)
[2017-04-25 05:17] LABS: Calcium 8.2 MG/DL (8.5-10.1); Magnesium 1.7 MG/DL (1.8-2.4); Osmolality,Calculated 273.8 MOS/KG (273-304)
[2017-04-25] MEDS ORDERED: MAGNESIUM SULF RIDER 1 GM in PREMIX 1 EACH IV ONE ×2 (06:58→19:00)
[2017-04-25] MEDS ORDERED: DILTIAZEM CD 120 MG CAPSULE PO SCH ×2 (09:00→21:00)
[2017-04-25] MEDS: FUROSEMIDE 40 MG/4 ML VIAL IV SCH ×2 (09:06→18:50)
[2017-04-25] MEDS: POTASSIUM CHLORIDE 10 MEQ TABLET PO SCH (09:06)
[2017-04-25] MEDS: FLUoxetine 10 MG CAPSULE PO SCH (09:06)
[2017-04-25] MEDS: MULTIVITAMIN (OCUVITE) TABLET PO SCH (09:06)
[2017-04-25] MEDS: DOCUSATE SODIUM 100 MG CAPSULE PO SCH ×2 (09:06→21:51)
[2017-04-25] MEDS: CLOPIDOGREL 75 MG TABLET PO SCH (09:06)
[2017-04-25] MEDS: FERROUS GLUCONATE 324 MG TABLET PO SCH (09:07)
[2017-04-25] MEDS: PANTOPRAZOLE 40 MG TABLET PO SCH (09:07)
[2017-04-25] MEDS: ASPIRIN EC 81 MG TABLET PO SCH (09:07)
[2017-04-25] MEDS: predniSONE 20 MG TABLET PO SCH (09:14)
[2017-04-25] MEDS ORDERED: AMIODARONE INJ 150 MG in DEXTROSE 5% 100 ML IV ONE (11:32)
[2017-04-25] MEDS ORDERED: AMIODARONE INJ 450 MG in DEXTROSE 5% 241 ML IV SCH (12:00)
[2017-04-25] MEDS: AMIODARONE INJ 450 MG in DEXTROSE 5% 241 ML IV SCH (17:40)
[2017-04-25] MEDS: INSULIN REGULAR 100 UNIT/ML SUBCUT SCH ×2 (18:50→21:50)
[2017-04-25] MEDS: ZALEPLON 5 MG CAPSULE PO PRN (21:50)
[2017-04-26] MEDS: ALBUTEROL 2.5 MG/3 ML NEB RESP TX SCH ×7 (00:48→19:58)
[2017-04-26] MEDS: AMIODARONE INJ 450 MG in DEXTROSE 5% 241 ML IV SCH ×3 (01:46→17:03)
[2017-04-26] MEDS: ENOXAPARIN 80 MG/0.8 ML SYRINGE SUBCUT SCH (03:20)
[2017-04-26 04:52] LABS: Calcium 8.6 MG/DL (8.5-10.1); Magnesium 2.1 MG/DL (1.8-2.4); Osmolality,Calculated 271.2 MOS/KG (273-304)
[2017-04-26] MEDS ORDERED: DIGOXIN 0.25 MG TABLET PO ONE (08:26)
[2017-04-26] MEDS: MULTIVITAMIN (OCUVITE) TABLET PO SCH (10:05)
[2017-04-26] MEDS: FERROUS GLUCONATE 324 MG TABLET PO SCH (10:06)
[2017-04-26] MEDS: DOCUSATE SODIUM 100 MG CAPSULE PO SCH ×2 (10:06→20:53)
[2017-04-26] MEDS: CLOPIDOGREL 75 MG TABLET PO SCH (10:06)
[2017-04-26] MEDS: FLUoxetine 10 MG CAPSULE PO SCH (10:06)
[2017-04-26] MEDS: DILTIAZEM CD 180 MG CAPSULE PO SCH ×2 (10:06→20:53)
[2017-04-26] MEDS: POTASSIUM CHLORIDE 10 MEQ TABLET PO SCH (10:06)
[2017-04-26] MEDS: predniSONE 20 MG TABLET PO SCH (10:06)
[2017-04-26] MEDS: FUROSEMIDE 40 MG/4 ML VIAL IV SCH ×2 (10:06→16:15)
[2017-04-26] MEDS: ASPIRIN EC 81 MG TABLET PO SCH (10:06)
[2017-04-26] MEDS: PANTOPRAZOLE 40 MG TABLET PO SCH (10:35)
[2017-04-26] MEDS: INSULIN REGULAR 100 UNIT/ML SUBCUT SCH ×4 (10:36→20:57)
[2017-04-26] MEDS: ZALEPLON 5 MG CAPSULE PO PRN (20:53)
[2017-04-26] MEDS: DILTIAZEM INJ 100 MG in SODIUM CHLORIDE 0.9% 100 ML IV SCH (20:58)
[2017-04-27] MEDS: ALBUTEROL 2.5 MG/3 ML NEB RESP TX SCH ×6 (00:03→19:55)
[2017-04-27] MEDS: AMIODARONE INJ 450 MG in DEXTROSE 5% 241 ML IV SCH (02:09)
[2017-04-27] MEDS: ENOXAPARIN 80 MG/0.8 ML SYRINGE SUBCUT SCH (02:10)
[2017-04-27 05:22] LABS: Calcium 8.3 MG/DL (8.5-10.1); Magnesium 1.8 MG/DL (1.8-2.4); Osmolality,Calculated 276.8 MOS/KG (273-304); Potassium 3.6 MMOL/L (3.5-5.1)
[2017-04-27] MEDS: INSULIN REGULAR 100 UNIT/ML SUBCUT SCH ×4 (08:08→21:29)
[2017-04-27] MEDS ORDERED: MIDAZOLAM 10 MG/2 ML VIAL ONE (08:19)
[2017-04-27] MEDS ORDERED: diphenhydrAMINE 50 MG/1 ML VIAL ONE (08:20)
[2017-04-27] MEDS ORDERED: MIDAZOLAM 2 MG/2 ML VIAL IV ONE (08:33)
[2017-04-27] MEDS ORDERED: diphenhydrAMINE 50 MG/1 ML VIAL IV ONE (08:35)
[2017-04-27] MEDS: FERROUS GLUCONATE 324 MG TABLET PO SCH (10:38)
[2017-04-27] MEDS: MULTIVITAMIN (OCUVITE) TABLET PO SCH (10:38)
[2017-04-27] MEDS: FLUoxetine 10 MG CAPSULE PO SCH (10:39)
[2017-04-27] MEDS: PANTOPRAZOLE 40 MG TABLET PO SCH (10:39)
[2017-04-27] MEDS: DOCUSATE SODIUM 100 MG CAPSULE PO SCH ×2 (10:39→21:34)
[2017-04-27] MEDS: predniSONE 20 MG TABLET PO SCH (10:39)
[2017-04-27] MEDS: ASPIRIN EC 81 MG TABLET PO SCH (10:40)
[2017-04-27] MEDS: CLOPIDOGREL 75 MG TABLET PO SCH (10:40)
[2017-04-27] MEDS: DILTIAZEM CD 180 MG CAPSULE PO SCH ×2 (10:40→21:34)
[2017-04-27] MEDS: POTASSIUM CHLORIDE 10 MEQ TABLET PO SCH (10:40)
[2017-04-27] MEDS: FUROSEMIDE 40 MG/4 ML VIAL IV SCH ×2 (10:41→16:32)
[2017-04-27] MEDS: AMIODARONE 200 MG TABLET PO SCH (11:02)
[2017-04-27] MEDS: DILTIAZEM INJ 100 MG in SODIUM CHLORIDE 0.9% 100 ML IV SCH (21:29)
[2017-04-27] MEDS: ZALEPLON 5 MG CAPSULE PO PRN (21:34)
[2017-04-28] MEDS: ALBUTEROL 2.5 MG/3 ML NEB RESP TX SCH ×6 (01:14→19:42)
[2017-04-28] MEDS: ENOXAPARIN 80 MG/0.8 ML SYRINGE SUBCUT SCH (01:23)
[2017-04-28 05:25] LABS: Basophils % 0.1 % (0.0-0.8); Eosinophils % 0.3 % (0.00-10.9); Hemoglobin 8.8 GM/DL (12.0-16.0); Immature Granulocytes % 4.2 %; Immature Granulocytes Absolute 0.54 #; Lymphocytes # 2.6 10*3/uL (1.4-4.0); Mean Corpuscular HGB Conc 30.3 GM/DL (32-36); Mean Corpuscular Hemoglobin 26 PG (27-34); Mean Corpuscular Volume 86.6 FL (87-102); Mean Platelet Volume 10.2 FL (9.6-12.0); Monocytes # 0.9 10*3/uL (0.11-0.8); Monocytes % 6.8 % (1.7-12.7); Neutrophils # 8.9 10*3/uL (1.4-7.4); Neutrophils % 68.6 % (38.7-73.9); Platelet Count 293 T/CUMM (130-400); Red Blood Count 3.35 MC/CUMM (3.8-5.5); Red Cell Distribution Width 16.8 % (9.3-17.3)
[2017-04-28 05:45] LABS: Giant Platelets Few; Hypochromasia 1+; Lymphocytes 15 % (20-55); Ovalocytes Slight; Platelet Estimate Adequate; Segmented Neutrophils 76 % (50-85); Total Cells Counted 100
[2017-04-28] MEDS: INSULIN REGULAR 100 UNIT/ML SUBCUT SCH ×4 (07:43→20:45)
[2017-04-28] MEDS: FLUoxetine 10 MG CAPSULE PO SCH (08:56)
[2017-04-28] MEDS: ASPIRIN EC 81 MG TABLET PO SCH (08:56)
[2017-04-28] MEDS: PANTOPRAZOLE 40 MG TABLET PO SCH (08:56)
[2017-04-28] MEDS: FERROUS GLUCONATE 324 MG TABLET PO SCH (08:56)
[2017-04-28] MEDS: CLOPIDOGREL 75 MG TABLET PO SCH (08:56)
[2017-04-28] MEDS: predniSONE 20 MG TABLET PO SCH (08:56)
[2017-04-28] MEDS: MULTIVITAMIN (OCUVITE) TABLET PO SCH (08:56)
[2017-04-28] MEDS: DOCUSATE SODIUM 100 MG CAPSULE PO SCH ×2 (08:56→20:47)
[2017-04-28] MEDS: AMIODARONE 200 MG TABLET PO SCH (08:56)
[2017-04-28] MEDS: DILTIAZEM CD 180 MG CAPSULE PO SCH ×2 (08:57→20:47)
[2017-04-28] MEDS: POTASSIUM CHLORIDE 10 MEQ TABLET PO SCH (08:57)
[2017-04-28] MEDS: FUROSEMIDE 40 MG/4 ML VIAL IV SCH ×2 (08:57→15:46)
[2017-04-28] MEDS: APIXABAN 5 MG TABLET PO SCH ×2 (09:04→20:47)
[2017-04-28] MEDS ORDERED: MAGNESIUM SULF RIDER 2 GM in PREMIX 1 EACH IV PRN (15:49)
[2017-04-28] MEDS ORDERED: MAGNESIUM SULF RIDER 4 GM in PREMIX 1 EACH IV PRN (15:49)
[2017-04-28] MEDS: ZALEPLON 5 MG CAPSULE PO PRN (20:47)
[2017-04-29] MEDS: ALBUTEROL 2.5 MG/3 ML NEB RESP TX SCH ×6 (04:31→20:20)
[2017-04-29 04:57] LABS: Basophils % 0.1 % (0.0-0.8); Eosinophils # 0.1 10*3/uL (0.0-0.87); Eosinophils % 0.5 % (0.00-10.9); Hematocrit 29.5 VOL% (35.7-47.0); Hemoglobin 9.3 GM/DL (12.0-16.0); Immature Granulocytes % 3.1 %; Immature Granulocytes Absolute 0.41 #; Lymphocytes # 2.6 10*3/uL (1.4-4.0); Lymphocytes % 19.7 % (21.3-54.2); Mean Corpuscular HGB Conc 31.5 GM/DL (32-36); Mean Corpuscular Hemoglobin 26 PG (27-34); Mean Corpuscular Volume 83.6 FL (87-102); Mean Platelet Volume 9.8 FL (9.6-12.0); Monocytes # 0.9 10*3/uL (0.11-0.8); Monocytes % 6.6 % (1.7-12.7); Neutrophils # 9.2 10*3/uL (1.4-7.4); Platelet Count 295 T/CUMM (130-400); Red Blood Count 3.53 MC/CUMM (3.8-5.5); Red Cell Distribution Width 16.6 % (9.3-17.3); White Blood Count 13.2 T/CUMM (4-12)
[2017-04-29 05:28] LABS: Calcium 7.9 MG/DL (8.5-10.1); Magnesium 1.6 MG/DL (1.8-2.4); Osmolality,Calculated 279.5 MOS/KG (273-304)
[2017-04-29] MEDS: POTASSIUM CHLORIDE 20 MEQ TABLET PO PRN ×3 (07:00→11:54)
[2017-04-29] MEDS: POTASSIUM CHLORIDE 10 MEQ TABLET PO SCH (09:30)
[2017-04-29] MEDS: MULTIVITAMIN (OCUVITE) TABLET PO SCH (09:30)
[2017-04-29] MEDS: FUROSEMIDE 40 MG/4 ML VIAL IV SCH (09:30)
[2017-04-29] MEDS: DOCUSATE SODIUM 100 MG CAPSULE PO SCH ×2 (09:30→21:15)
[2017-04-29] MEDS: AMIODARONE 200 MG TABLET PO SCH (09:31)
[2017-04-29] MEDS: APIXABAN 5 MG TABLET PO SCH ×2 (09:31→21:14)
[2017-04-29] MEDS: DILTIAZEM CD 180 MG CAPSULE PO SCH ×2 (09:31→21:15)
[2017-04-29] MEDS: CLOPIDOGREL 75 MG TABLET PO SCH (09:31)
[2017-04-29] MEDS: PANTOPRAZOLE 40 MG TABLET PO SCH (09:31)
[2017-04-29] MEDS: FERROUS GLUCONATE 324 MG TABLET PO SCH (09:31)
[2017-04-29] MEDS: FLUoxetine 10 MG CAPSULE PO SCH (09:31)
[2017-04-29] MEDS: predniSONE 20 MG TABLET PO SCH (09:32)
[2017-04-29] MEDS: INSULIN REGULAR 100 UNIT/ML SUBCUT SCH ×4 (10:24→21:16)
[2017-04-29] MEDS: AMIODARONE INJ 450 MG in DEXTROSE 5% 241 ML IV SCH ×3 (11:54→17:30)
[2017-04-29] MEDS: FUROSEMIDE 40 MG TABLET PO SCH (17:27)
[2017-04-29] MEDS: ZALEPLON 5 MG CAPSULE PO PRN (21:21)
[2017-04-30] MEDS: ALBUTEROL 2.5 MG/3 ML NEB RESP TX SCH ×8 (00:53→23:58)
[2017-04-30 06:23] LABS: Basophils % 0.1 % (0.0-0.8); Eosinophils # 0.1 10*3/uL (0.0-0.87); Eosinophils % 0.5 % (0.00-10.9); Hematocrit 29.1 VOL% (35.7-47.0); Hemoglobin 9.3 GM/DL (12.0-16.0); Immature Granulocytes % 2.1 %; Immature Granulocytes Absolute 0.35 #; Lymphocytes # 2.4 10*3/uL (1.4-4.0); Lymphocytes % 14.2 % (21.3-54.2); Mean Corpuscular Hemoglobin 27 PG (27-34); Mean Corpuscular Volume 83.9 FL (87-102); Monocytes # 0.9 10*3/uL (0.11-0.8); Monocytes % 5.6 % (1.7-12.7); Neutrophils % 77.5 % (38.7-73.9); Platelet Count 304 T/CUMM (130-400); Red Blood Count 3.47 MC/CUMM (3.8-5.5); Red Cell Distribution Width 16.6 % (9.3-17.3); White Blood Count 16.7 T/CUMM (4-12)
[2017-04-30 06:59] LABS: Calcium 7.8 MG/DL (8.5-10.1); Osmolality,Calculated 279.5 MOS/KG (273-304); Potassium 3.3 MMOL/L (3.5-5.1)
[2017-04-30] MEDS: INSULIN REGULAR 100 UNIT/ML SUBCUT SCH ×4 (09:53→22:38)
[2017-04-30] MEDS: AMIODARONE 200 MG TABLET PO SCH (09:54)
[2017-04-30] MEDS: FLUoxetine 10 MG CAPSULE PO SCH (09:55)
[2017-04-30] MEDS: CLOPIDOGREL 75 MG TABLET PO SCH (09:55)
[2017-04-30] MEDS: POTASSIUM CHLORIDE 20 MEQ TABLET PO PRN ×3 (09:55→15:40)
[2017-04-30] MEDS: APIXABAN 5 MG TABLET PO SCH ×2 (09:55→22:06)
[2017-04-30] MEDS: DILTIAZEM CD 180 MG CAPSULE PO SCH ×2 (09:56→22:06)
[2017-04-30] MEDS: DOCUSATE SODIUM 100 MG CAPSULE PO SCH ×2 (09:57→22:06)
[2017-04-30] MEDS: predniSONE 20 MG TABLET PO SCH (09:57)
[2017-04-30] MEDS: POTASSIUM CHLORIDE 10 MEQ TABLET PO SCH (09:57)
[2017-04-30] MEDS: PANTOPRAZOLE 40 MG TABLET PO SCH (09:57)
[2017-04-30] MEDS: FERROUS GLUCONATE 324 MG TABLET PO SCH (09:57)
[2017-04-30] MEDS: MULTIVITAMIN (OCUVITE) TABLET PO SCH (09:57)
[2017-04-30] MEDS: FUROSEMIDE 40 MG TABLET PO SCH ×2 (09:58→15:40)
[2017-04-30] MEDS: AMIODARONE INJ 450 MG in DEXTROSE 5% 241 ML IV SCH (10:11)
[2017-04-30] MEDS: ZALEPLON 5 MG CAPSULE PO PRN (22:10)
[2017-05-01] MEDS: ALBUTEROL 2.5 MG/3 ML NEB RESP TX SCH ×4 (03:44→14:27)
[2017-05-01 06:29] LABS: Basophils % 0.1 % (0.0-0.8); Eosinophils # 0.1 10*3/uL (0.0-0.87); Eosinophils % 0.7 % (0.00-10.9); Hematocrit 27.9 VOL% (35.7-47.0); Hemoglobin 8.9 GM/DL (12.0-16.0); Immature Granulocytes % 1.5 %; Immature Granulocytes Absolute 0.22 #; Lymphocytes # 2.2 10*3/uL (1.4-4.0); Lymphocytes % 15.5 % (21.3-54.2); Mean Corpuscular HGB Conc 31.9 GM/DL (32-36); Mean Corpuscular Hemoglobin 27 PG (27-34); Mean Platelet Volume 9.9 FL (9.6-12.0); Monocytes # 0.8 10*3/uL (0.11-0.8); Monocytes % 5.3 % (1.7-12.7); Neutrophils # 11.1 10*3/uL (1.4-7.4); Neutrophils % 76.9 % (38.7-73.9); Platelet Count 272 T/CUMM (130-400); Red Blood Count 3.32 MC/CUMM (3.8-5.5); Red Cell Distribution Width 16.3 % (9.3-17.3); White Blood Count 14.4 T/CUMM (4-12)
[2017-05-01 07:06] LABS: Calcium 8.4 MG/DL (8.5-10.1); Magnesium 1.9 MG/DL (1.8-2.4); Osmolality,Calculated 279.5 MOS/KG (273-304); Potassium 3.6 MMOL/L (3.5-5.1)
[2017-05-01] MEDS: INSULIN REGULAR 100 UNIT/ML SUBCUT SCH ×2 (07:57→13:39)
[2017-05-01] MEDS: MULTIVITAMIN (OCUVITE) TABLET PO SCH (08:48)
[2017-05-01] MEDS: PANTOPRAZOLE 40 MG TABLET PO SCH (08:48)
[2017-05-01] MEDS: APIXABAN 5 MG TABLET PO SCH (08:49)
[2017-05-01] MEDS: DOCUSATE SODIUM 100 MG CAPSULE PO SCH (08:50)
[2017-05-01] MEDS: FLUoxetine 10 MG CAPSULE PO SCH (08:51)
[2017-05-01] MEDS: CLOPIDOGREL 75 MG TABLET PO SCH (08:51)
[2017-05-01] MEDS: AMIODARONE 200 MG TABLET PO SCH (08:51)
[2017-05-01] MEDS: predniSONE 20 MG TABLET PO SCH (08:51)
[2017-05-01] MEDS: POTASSIUM CHLORIDE 10 MEQ TABLET PO SCH (08:51)
[2017-05-01] MEDS: FUROSEMIDE 40 MG TABLET PO SCH (08:51)
[2017-05-01] MEDS: DILTIAZEM CD 180 MG CAPSULE PO SCH (08:51)
[2017-05-01] MEDS: FERROUS GLUCONATE 324 MG TABLET PO SCH (08:51)
[2017-05-01 12:11] VITALS: BP 120/57
== END 2017-05-01 14:29 | disposition swing bed (61) | DRG 308 ==
LOC: EDBD → EDUNIT# → N.ED 20:34 → N.EDINP 04-25 00:08 → SUATTDRO 04-25 00:08 → N.TELEN 04-25 00:44
PROVIDERS: ADMIT Hospitalist; ATTEND Internal Medicine

== ENCOUNTER 2017-05-06 22:32 | Inpatient (IN) ==
[2017-05-06] MEDS ORDERED: DILTIAZEM 50 MG/10 ML VIAL IV STA (23:20)
[2017-05-07] MEDS ORDERED: LACTATED RINGERS 500 ML IV ONE (00:10)
[2017-05-07 00:19] LABS: Basophils % 0.1 % (0.0-0.8); Eosinophils % 0.2 % (0.00-10.9); Hematocrit 24.3 VOL% (35.7-47.0); Hemoglobin 7.7 GM/DL (12.0-16.0); Immature Granulocytes % 0.9 %; Lymphocytes # 1.8 10*3/uL (1.4-4.0); Lymphocytes % 15.2 % (21.3-54.2); Mean Corpuscular HGB Conc 31.7 GM/DL (32-36); Mean Corpuscular Hemoglobin 27 PG (27-34); Mean Corpuscular Volume 86.5 FL (87-102); Mean Platelet Volume 9.8 FL (9.6-12.0); Monocytes # 0.5 10*3/uL (0.11-0.8); Monocytes % 4.5 % (1.7-12.7); Neutrophils # 9.2 10*3/uL (1.4-7.4); Neutrophils % 79.1 % (38.7-73.9); Platelet Count 240 T/CUMM (130-400); Red Blood Count 2.81 MC/CUMM (3.8-5.5); Red Cell Distribution Width 17.6 % (9.3-17.3); White Blood Count 11.6 T/CUMM (4-12)
[2017-05-07 00:26] LABS: INR 1.1; PT Patient Result 11.4 SECS
[2017-05-07] MEDS ORDERED: MAGNESIUM SULF RIDER 2 GM in PREMIX 1 EACH IV STA (00:57)
[2017-05-07 00:58] LABS: Albumin 3.3 G/DL (3.4-5.0); Bilirubin,Total 0.4 MG/DL (0.2-1.0); Osmolality,Calculated 276.8 MOS/KG (273-304); Potassium 3.1 MMOL/L (3.5-5.1); Thyroid Stimulating Hormone 2.76 uIU/ml (0.358-3.74); Total Protein 5.7 G/DL (6.4-8.3); Troponin I Only 0.28 NG/ML (0.00-0.045)
[2017-05-07] MEDS ORDERED: MAGNESIUM SULF RIDER 50 ML IV ONE (01:10)
[2017-05-07] MEDS: DILTIAZEM INJ 100 MG in SODIUM CHLORIDE 0.9% 100 ML IV SCH (01:52)
[2017-05-07] MEDS ORDERED: DILTIAZEM 100 MG VIAL.ADD IV ONE (01:54)
[2017-05-07] MEDS ORDERED: POTASSIUM CHLORIDE RIDER 10 MEQ in PREMIX 1 EACH IV PRN (02:41)
[2017-05-07] MEDS ORDERED: MORPHINE 2 MG/1 ML SYRINGE IV PRN (02:41)
[2017-05-07] MEDS ORDERED: SODIUM CHLORIDE 0.9% 1,000 ML IV PRN (02:41)
[2017-05-07] MEDS ORDERED: PROMETHAZINE 25 MG/1 ML VIAL IM PRN (02:41)
[2017-05-07] MEDS ORDERED: FUROSEMIDE 40 MG/4 ML VIAL IV PRN (02:41)
[2017-05-07 07:25] LABS: Calcium 8.2 MG/DL (8.5-10.1); Osmolality,Calculated 277.7 MOS/KG (273-304); Potassium 3.1 MMOL/L (3.5-5.1)
[2017-05-07] MEDS ORDERED: ALBUTEROL 2.5 MG/3 ML NEB RESP TX PRN (07:57)
[2017-05-07] MEDS ORDERED: ALBUTEROL/IPRATROPIUM 3 ML NEB RESP TX PRN (07:57)
[2017-05-07] MEDS ORDERED: ZALEPLON 5 MG CAPSULE PO PRN (07:57)
[2017-05-07] MEDS ORDERED: CLOPIDOGREL 75 MG TABLET PO SCH (09:00)
[2017-05-07] MEDS ORDERED: APIXABAN 5 MG TABLET PO SCH (09:00)
[2017-05-07] MEDS: FERROUS GLUCONATE 324 MG TABLET PO SCH (09:51)
[2017-05-07] MEDS: DILTIAZEM CD 180 MG CAPSULE PO SCH ×2 (09:51→21:00)
[2017-05-07] MEDS: predniSONE 20 MG TABLET PO SCH (09:51)
[2017-05-07] MEDS: MULTIVITAMIN (OCUVITE) TABLET PO SCH (09:51)
[2017-05-07] MEDS: PANTOPRAZOLE 40 MG TABLET PO SCH (09:51)
[2017-05-07] MEDS: AMIODARONE 200 MG TABLET PO SCH (09:51)
[2017-05-07] MEDS: POTASSIUM CHLORIDE 20 MEQ TABLET PO SCH ×3 (09:51→16:39)
[2017-05-07] MEDS: POTASSIUM CHLORIDE 10 MEQ TABLET PO SCH ×2 (09:51→21:00)
[2017-05-07] MEDS: FUROSEMIDE 40 MG TABLET PO SCH ×2 (09:52→15:39)
[2017-05-07] MEDS: FLUoxetine 10 MG CAPSULE PO SCH (10:01)
[2017-05-07 14:06] LABS: Hemoglobin 10.1 GM/DL (12.0-16.0)
[2017-05-08] MEDS: DILTIAZEM INJ 100 MG in SODIUM CHLORIDE 0.9% 100 ML IV SCH (02:42)
[2017-05-08 05:21] LABS: Basophils % 0.2 % (0.0-0.8); Eosinophils # 0.1 10*3/uL (0.0-0.87); Eosinophils % 0.6 % (0.00-10.9); Hematocrit 30.3 VOL% (35.7-47.0); Hemoglobin 9.7 GM/DL (12.0-16.0); Immature Granulocytes Absolute 0.12 #; Lymphocytes # 1.4 10*3/uL (1.4-4.0); Lymphocytes % 11.3 % (21.3-54.2); Mean Corpuscular Hemoglobin 28 PG (27-34); Mean Corpuscular Volume 88.3 FL (87-102); Mean Platelet Volume 9.9 FL (9.6-12.0); Monocytes # 0.7 10*3/uL (0.11-0.8); Monocytes % 5.5 % (1.7-12.7); NRBC # 0.03 10*3/uL; Neutrophils # 10.1 10*3/uL (1.4-7.4); Neutrophils % 81.4 % (38.7-73.9); Platelet Count 197 T/CUMM (130-400); Red Blood Count 3.43 MC/CUMM (3.8-5.5); Red Cell Distribution Width 18.4 % (9.3-17.3); White Blood Count 12.4 T/CUMM (4-12)
[2017-05-08 05:54] LABS: Calcium 8.1 MG/DL (8.5-10.1); Magnesium 2.1 MG/DL (1.8-2.4); Osmolality,Calculated 284.3 MOS/KG (273-304); Potassium 3.6 MMOL/L (3.5-5.1)
[2017-05-08] MEDS ORDERED: PROPOFOL 200 MG/20 ML VIAL IV ONE (11:59)
[2017-05-08] MEDS ORDERED: LIDOCAINE 1% 5 ML VIAL ONE (11:59)
[2017-05-08] MEDS: FUROSEMIDE 40 MG TABLET PO SCH ×2 (13:39→15:35)
[2017-05-08] MEDS ORDERED: GLYCERIN ADULT SUPP RECTAL PRN (13:43)
[2017-05-08] MEDS: DILTIAZEM CD 180 MG CAPSULE PO SCH ×2 (13:50→21:19)
[2017-05-08] MEDS: predniSONE 20 MG TABLET PO SCH (13:51)
[2017-05-08] MEDS: FLUoxetine 10 MG CAPSULE PO SCH (13:51)
[2017-05-08] MEDS: POTASSIUM CHLORIDE 10 MEQ TABLET PO SCH ×2 (13:51→21:19)
[2017-05-08] MEDS: FERROUS GLUCONATE 324 MG TABLET PO SCH (13:51)
[2017-05-08] MEDS: AMIODARONE 200 MG TABLET PO SCH (13:51)
[2017-05-08] MEDS: MULTIVITAMIN (OCUVITE) TABLET PO SCH (13:52)
[2017-05-08] MEDS ORDERED: DOCUSATE SODIUM 100 MG CAPSULE PO PRN (13:59)
[2017-05-08] MEDS: PANTOPRAZOLE 40 MG TABLET PO SCH ×2 (14:00→21:19)
[2017-05-08] MEDS: FLUCONAZOLE 200 MG TABLET PO SCH (21:20)
[2017-05-09] MEDS: DILTIAZEM INJ 100 MG in SODIUM CHLORIDE 0.9% 100 ML IV SCH (01:30)
[2017-05-09] MEDS ORDERED: AMIODARONE 200 MG TABLET PO SCH (08:23)
[2017-05-09] MEDS: FLUCONAZOLE 200 MG TABLET PO SCH ×2 (08:48→20:16)
[2017-05-09] MEDS: FLUoxetine 10 MG CAPSULE PO SCH (08:48)
[2017-05-09] MEDS: DILTIAZEM CD 180 MG CAPSULE PO SCH ×2 (08:48→20:15)
[2017-05-09] MEDS: FUROSEMIDE 40 MG TABLET PO SCH ×2 (08:49→15:51)
[2017-05-09] MEDS: MULTIVITAMIN (OCUVITE) TABLET PO SCH (08:49)
[2017-05-09] MEDS: POTASSIUM CHLORIDE 10 MEQ TABLET PO SCH ×2 (08:49→20:16)
[2017-05-09] MEDS: PANTOPRAZOLE 40 MG TABLET PO SCH ×2 (08:49→20:16)
[2017-05-09] MEDS: predniSONE 20 MG TABLET PO SCH (08:49)
[2017-05-09] MEDS: AMIODARONE 200 MG TABLET PO SCH ×2 (08:50→20:16)
[2017-05-09] MEDS: FERROUS GLUCONATE 324 MG TABLET PO SCH (08:50)
[2017-05-10] MEDS: DILTIAZEM INJ 100 MG in SODIUM CHLORIDE 0.9% 100 ML IV SCH (01:34)
[2017-05-10 04:38] LABS: Basophils % 0.1 % (0.0-0.8); Eosinophils # 0.1 10*3/uL (0.0-0.87); Eosinophils % 0.8 % (0.00-10.9); Hematocrit 29.1 VOL% (35.7-47.0); Immature Granulocytes % 0.7 %; Immature Granulocytes Absolute 0.06 #; Lymphocytes # 1.1 10*3/uL (1.4-4.0); Lymphocytes % 12.9 % (21.3-54.2); Mean Corpuscular HGB Conc 30.9 GM/DL (32-36); Mean Corpuscular Hemoglobin 28 PG (27-34); Mean Corpuscular Volume 91.2 FL (87-102); Mean Platelet Volume 10.1 FL (9.6-12.0); Monocytes # 0.5 10*3/uL (0.11-0.8); Monocytes % 5.7 % (1.7-12.7); Neutrophils % 79.8 % (38.7-73.9); Platelet Count 231 T/CUMM (130-400); Red Blood Count 3.19 MC/CUMM (3.8-5.5); Red Cell Distribution Width 18.7 % (9.3-17.3); White Blood Count 8.8 T/CUMM (4-12)
[2017-05-10 05:13] LABS: Calcium 8.3 MG/DL (8.5-10.1); Magnesium 2.1 MG/DL (1.8-2.4); Osmolality,Calculated 280.4 MOS/KG (273-304); Potassium 3.7 MMOL/L (3.5-5.1)
[2017-05-10] MEDS: MULTIVITAMIN (OCUVITE) TABLET PO SCH (09:01)
[2017-05-10] MEDS: FLUoxetine 10 MG CAPSULE PO SCH (09:01)
[2017-05-10] MEDS: predniSONE 20 MG TABLET PO SCH (09:01)
[2017-05-10] MEDS: FLUCONAZOLE 200 MG TABLET PO SCH ×2 (09:01→21:52)
[2017-05-10] MEDS: DILTIAZEM CD 180 MG CAPSULE PO SCH ×2 (09:01→21:51)
[2017-05-10] MEDS: PANTOPRAZOLE 40 MG TABLET PO SCH ×2 (09:01→21:52)
[2017-05-10] MEDS: POTASSIUM CHLORIDE 10 MEQ TABLET PO SCH ×2 (09:01→21:52)
[2017-05-10] MEDS: AMIODARONE 200 MG TABLET PO SCH ×2 (09:02→21:52)
[2017-05-10] MEDS: FUROSEMIDE 40 MG TABLET PO SCH ×2 (09:02→15:54)
[2017-05-10] MEDS: FERROUS GLUCONATE 324 MG TABLET PO SCH (09:02)
[2017-05-11] MEDS: DILTIAZEM INJ 100 MG in SODIUM CHLORIDE 0.9% 100 ML IV SCH (03:30)
[2017-05-11 04:54] LABS: Basophils % 0.1 % (0.0-0.8); Eosinophils # 0.1 10*3/uL (0.0-0.87); Eosinophils % 1.2 % (0.00-10.9); Hematocrit 29.4 VOL% (35.7-47.0); Hemoglobin 9.3 GM/DL (12.0-16.0); Immature Granulocytes % 0.5 %; Immature Granulocytes Absolute 0.04 #; Lymphocytes # 1.4 10*3/uL (1.4-4.0); Mean Corpuscular HGB Conc 31.6 GM/DL (32-36); Mean Corpuscular Hemoglobin 28 PG (27-34); Mean Corpuscular Volume 89.6 FL (87-102); Mean Platelet Volume 9.7 FL (9.6-12.0); Monocytes # 0.6 10*3/uL (0.11-0.8); Monocytes % 6.5 % (1.7-12.7); Neutrophils # 6.5 10*3/uL (1.4-7.4); Neutrophils % 75.7 % (38.7-73.9); Platelet Count 258 T/CUMM (130-400); Red Blood Count 3.28 MC/CUMM (3.8-5.5); Red Cell Distribution Width 18.6 % (9.3-17.3); White Blood Count 8.6 T/CUMM (4-12)
[2017-05-11 05:35] LABS: Calcium 8.1 MG/DL (8.5-10.1); Magnesium 1.7 MG/DL (1.8-2.4); Osmolality,Calculated 275.7 MOS/KG (273-304); Potassium 3.8 MMOL/L (3.5-5.1)
[2017-05-11] MEDS: DILTIAZEM CD 180 MG CAPSULE PO SCH (09:01)
[2017-05-11] MEDS: MULTIVITAMIN (OCUVITE) TABLET PO SCH (09:01)
[2017-05-11] MEDS: predniSONE 20 MG TABLET PO SCH (09:01)
[2017-05-11] MEDS: PANTOPRAZOLE 40 MG TABLET PO SCH (09:01)
[2017-05-11] MEDS: FERROUS GLUCONATE 324 MG TABLET PO SCH (09:02)
[2017-05-11] MEDS: AMIODARONE 200 MG TABLET PO SCH (09:02)
[2017-05-11] MEDS: FLUoxetine 10 MG CAPSULE PO SCH (09:02)
[2017-05-11] MEDS: POTASSIUM CHLORIDE 10 MEQ TABLET PO SCH (09:02)
[2017-05-11] MEDS: FUROSEMIDE 40 MG TABLET PO SCH (09:02)
[2017-05-11] MEDS: FLUCONAZOLE 200 MG TABLET PO SCH (09:02)
[2017-05-11 12:11] VITALS: BP 118/48
== END 2017-05-11 14:15 | disposition home or self-care (01) | DRG 378 ==
LOC: EDBD → EDUNIT# → N.ED 22:32 → SUATTDRO 05-07 01:59 → N.EDINP 05-07 01:59 → N.TELES 05-07 02:33
PROVIDERS: ADMIT Internal Medicine; ATTEND Internal Medicine

== ENCOUNTER 2017-05-19 17:04 | Inpatient (IN) ==
[2017-05-19] MEDS ORDERED: ONDANSETRON 4 MG/2 ML VIAL IV STA (19:19)
[2017-05-19] MEDS ORDERED: MORPHINE 2 MG/1 ML SYRINGE IV STA (19:19)
[2017-05-19] MEDS ORDERED: MORPHINE 2 MG/1 ML SYRINGE ONE (19:35)
[2017-05-19] MEDS ORDERED: ONDANSETRON 4 MG/2 ML VIAL ONE (19:35)
[2017-05-19 20:26] LABS: Apearance,Urine CLEAR (Clear); Bilirubin,Urine Negative (Negative); Blood, Urine Negative (Negative); Glucose,Urine (UA) Negative (Negative); Hyaline Casts,Urine 4 /LPF (0-3); Ketones,Urine Negative (Negative); Mucus,Urine Occasional /LPF (Occasional); Nitrite,Urine Negative (Negative); Protein,Urine Negative; RBC,Urine <1 /HPF (0-4); Squamous Epithelial Cell,Urine Occasional /HPF (0-10); Urine Color Straw (Yellow); Urine Specific Gravity 1.006 (1.001-1.035); Urine Urobilinogen < 2.0 EU/DL (0.2-1.0); WBC,Urine 1 /HPF (0-6)
[2017-05-19 21:27] LABS: Basophils # 0.1 10*3/uL (0.0-0.2); Basophils % 0.3 % (0.0-0.8); Eosinophils # 0.1 10*3/uL (0.0-0.87); Eosinophils % 0.4 % (0.00-10.9); Hematocrit 28.9 VOL% (35.7-47.0); Hemoglobin 9.2 GM/DL (12.0-16.0); Immature Granulocytes % 2.3 %; Immature Granulocytes Absolute 0.41 #; Lymphocytes # 1.9 10*3/uL (1.4-4.0); Lymphocytes % 10.7 % (21.3-54.2); Mean Corpuscular HGB Conc 31.8 GM/DL (32-36); Mean Corpuscular Hemoglobin 28 PG (27-34); Mean Corpuscular Volume 87.6 FL (87-102); Mean Platelet Volume 9.2 FL (9.6-12.0); Monocytes # 1.1 10*3/uL (0.11-0.8); Monocytes % 6.1 % (1.7-12.7); Neutrophils # 14.1 10*3/uL (1.4-7.4); Neutrophils % 80.2 % (38.7-73.9); Platelet Count 392 T/CUMM (130-400); Red Cell Distribution Width 16.2 % (9.3-17.3); White Blood Count 17.6 T/CUMM (4-12)
[2017-05-19 21:34] LABS: PT Patient Result 10.3 SECS
[2017-05-19 21:55] LABS: Alanine Aminotransferase 24 U/L (13-56); Albumin 3.1 G/DL (3.4-5.0); Alkaline Phosphatase 67 U/L (45-117); Aspartate Amino Transferase 21 U/L (0-37); Bilirubin,Total < 0.39 MG/DL (0.2-1.0); Blood Urea Nitrogen 35 MG/DL (7-18); Calcium 8.7 MG/DL (8.5-10.1); Glucose 116 MG/DL (74-106); Osmolality,Calculated 276.2 MOS/KG (273-304); Potassium 3.1 MMOL/L (3.5-5.1); Sodium 134 MMOL/L (136-145); Total Protein 6.5 G/DL (6.4-8.3); Troponin I Only < 0.015 NG/ML (0.00-0.045)
[2017-05-20] MEDS ORDERED: ONDANSETRON 4 MG/2 ML VIAL IV PRN (00:25)
[2017-05-20] MEDS ORDERED: clonazePAM 0.5 MG TABLET PO PRN (00:25)
[2017-05-20] MEDS ORDERED: ALBUTEROL 2.5 MG/3 ML NEB RESP TX PRN (00:25)
[2017-05-20] MEDS: MORPHINE 2 MG/1 ML SYRINGE IV PRN ×3 (01:16→20:17)
[2017-05-20] MEDS: ZALEPLON 5 MG CAPSULE PO SCH ×2 (01:30→20:19)
[2017-05-20] MEDS: POTASSIUM CHLORIDE 20 MEQ TABLET PO PRN ×2 (03:31→06:42)
[2017-05-20 06:49] LABS: Basophils # 0.1 10*3/uL (0.0-0.2); Basophils % 0.6 % (0.0-0.8); Eosinophils # 0.1 10*3/uL (0.0-0.87); Eosinophils % 0.7 % (0.00-10.9); Hemoglobin 8.5 GM/DL (12.0-16.0); Immature Granulocytes % 2.4 %; Immature Granulocytes Absolute 0.29 #; Lymphocytes # 1.9 10*3/uL (1.4-4.0); Lymphocytes % 15.8 % (21.3-54.2); Mean Corpuscular HGB Conc 31.5 GM/DL (32-36); Mean Corpuscular Hemoglobin 28 PG (27-34); Mean Corpuscular Volume 87.9 FL (87-102); Mean Platelet Volume 9.2 FL (9.6-12.0); Monocytes % 7.9 % (1.7-12.7); Neutrophils # 8.9 10*3/uL (1.4-7.4); Neutrophils % 72.6 % (38.7-73.9); Platelet Count 349 T/CUMM (130-400); Red Blood Count 3.07 MC/CUMM (3.8-5.5); Red Cell Distribution Width 16.2 % (9.3-17.3); White Blood Count 12.2 T/CUMM (4-12)
[2017-05-20 07:09] LABS: Calcium 8.4 MG/DL (8.5-10.1); Osmolality,Calculated 274.4 MOS/KG (273-304); Potassium 3.7 MMOL/L (3.5-5.1)
[2017-05-20 07:10] LABS: Risk Ratio 3.51; VLDL CHOLESTEROL 41.2 MG/DL
[2017-05-20] MEDS: CLOPIDOGREL 75 MG TABLET PO SCH (08:34)
[2017-05-20] MEDS: PANTOPRAZOLE 40 MG TABLET PO SCH (08:34)
[2017-05-20] MEDS: AMIODARONE 200 MG TABLET PO SCH (08:35)
[2017-05-20] MEDS: metOLazone 5 MG TABLET PO SCH (08:35)
[2017-05-20] MEDS: MULTIVITAMIN (OCUVITE) TABLET PO SCH (08:35)
[2017-05-20] MEDS: DOCUSATE SODIUM 100 MG CAPSULE PO SCH ×2 (08:35→20:18)
[2017-05-20] MEDS: ASPIRIN EC 81 MG TABLET PO SCH (08:35)
[2017-05-20] MEDS: FERROUS GLUCONATE 324 MG TABLET PO SCH (08:35)
[2017-05-20] MEDS: DILTIAZEM CD 180 MG CAPSULE PO SCH ×2 (08:35→20:18)
[2017-05-20] MEDS: FLUoxetine 10 MG CAPSULE PO SCH (08:36)
[2017-05-21] MEDS: ASPIRIN EC 81 MG TABLET PO SCH (08:41)
[2017-05-21] MEDS: MULTIVITAMIN (OCUVITE) TABLET PO SCH (08:41)
[2017-05-21] MEDS: PANTOPRAZOLE 40 MG TABLET PO SCH (08:41)
[2017-05-21] MEDS: AMIODARONE 200 MG TABLET PO SCH (08:41)
[2017-05-21] MEDS: DOCUSATE SODIUM 100 MG CAPSULE PO SCH ×2 (08:41→20:39)
[2017-05-21] MEDS: metOLazone 5 MG TABLET PO SCH (08:41)
[2017-05-21] MEDS: FERROUS GLUCONATE 324 MG TABLET PO SCH (08:42)
[2017-05-21] MEDS: CLOPIDOGREL 75 MG TABLET PO SCH (08:42)
[2017-05-21] MEDS: FLUoxetine 10 MG CAPSULE PO SCH (08:42)
[2017-05-21] MEDS: DILTIAZEM CD 180 MG CAPSULE PO SCH ×2 (08:42→20:39)
[2017-05-21] MEDS ORDERED: TUBERCULIN SKIN TEST 0.1 ML SYRINGE INTRADERM ONE (11:20)
[2017-05-21] MEDS: MORPHINE 2 MG/1 ML SYRINGE IV PRN ×2 (11:39→20:38)
[2017-05-21] MEDS: ZALEPLON 5 MG CAPSULE PO SCH (20:39)
[2017-05-22] MEDS: PANTOPRAZOLE 40 MG TABLET PO SCH (09:46)
[2017-05-22] MEDS: DILTIAZEM CD 180 MG CAPSULE PO SCH ×2 (09:46→20:34)
[2017-05-22] MEDS: FERROUS GLUCONATE 324 MG TABLET PO SCH (09:46)
[2017-05-22] MEDS: metOLazone 5 MG TABLET PO SCH (09:46)
[2017-05-22] MEDS: MULTIVITAMIN (OCUVITE) TABLET PO SCH (09:46)
[2017-05-22] MEDS: FLUoxetine 10 MG CAPSULE PO SCH (09:46)
[2017-05-22] MEDS: ASPIRIN EC 81 MG TABLET PO SCH (09:46)
[2017-05-22] MEDS: CLOPIDOGREL 75 MG TABLET PO SCH (09:46)
[2017-05-22] MEDS: DOCUSATE SODIUM 100 MG CAPSULE PO SCH ×2 (09:47→20:33)
[2017-05-22] MEDS: AMIODARONE 200 MG TABLET PO SCH (09:47)
[2017-05-22] MEDS ORDERED: ACETAMINOPHEN 325 MG TABLET PO PRN (17:21)
[2017-05-22] MEDS: MORPHINE 2 MG/1 ML SYRINGE IV PRN (17:22)
[2017-05-22] MEDS: ROSUVASTATIN 10 MG TABLET PO SCH (20:33)
[2017-05-22] MEDS: ZALEPLON 5 MG CAPSULE PO SCH (20:34)
[2017-05-23] MEDS: FLUoxetine 10 MG CAPSULE PO SCH (08:36)
[2017-05-23] MEDS: FERROUS GLUCONATE 324 MG TABLET PO SCH (08:36)
[2017-05-23] MEDS: DILTIAZEM CD 180 MG CAPSULE PO SCH ×2 (08:37→20:49)
[2017-05-23] MEDS: CLOPIDOGREL 75 MG TABLET PO SCH (08:41)
[2017-05-23] MEDS: DOCUSATE SODIUM 100 MG CAPSULE PO SCH ×2 (08:41→20:50)
[2017-05-23] MEDS: AMIODARONE 200 MG TABLET PO SCH (08:41)
[2017-05-23] MEDS: MULTIVITAMIN (OCUVITE) TABLET PO SCH (08:41)
[2017-05-23] MEDS: PANTOPRAZOLE 40 MG TABLET PO SCH (08:41)
[2017-05-23] MEDS: ASPIRIN EC 81 MG TABLET PO SCH (08:41)
[2017-05-23] MEDS: metOLazone 5 MG TABLET PO SCH (08:41)
[2017-05-23] MEDS: MORPHINE 2 MG/1 ML SYRINGE IV PRN (12:35)
[2017-05-23] MEDS: ZALEPLON 5 MG CAPSULE PO SCH (20:49)
[2017-05-23] MEDS: ROSUVASTATIN 10 MG TABLET PO SCH (20:49)
[2017-05-24] MEDS: MORPHINE 2 MG/1 ML SYRINGE IV PRN (02:49)
[2017-05-24 06:41] LABS: Basophils % 0.2 % (0.0-0.8); Eosinophils % 0.2 % (0.00-10.9); Hematocrit 19.3 VOL% (35.7-47.0); Immature Granulocytes % 3.2 %; Immature Granulocytes Absolute 0.49 #; Lymphocytes # 1.3 10*3/uL (1.4-4.0); Lymphocytes % 8.6 % (21.3-54.2); Mean Corpuscular HGB Conc 32.1 GM/DL (32-36); Mean Corpuscular Hemoglobin 28 PG (27-34); Mean Corpuscular Volume 87.7 FL (87-102); Mean Platelet Volume 9.5 FL (9.6-12.0); Monocytes # 0.7 10*3/uL (0.11-0.8); Monocytes % 4.7 % (1.7-12.7); Neutrophils # 12.8 10*3/uL (1.4-7.4); Neutrophils % 83.1 % (38.7-73.9); Platelet Count 266 T/CUMM (130-400); Red Cell Distribution Width 16.1 % (9.3-17.3); White Blood Count 15.4 T/CUMM (4-12)
[2017-05-24 06:45] LABS: Hemoglobin 6.2 GM/DL (12.0-16.0)
[2017-05-24 07:14] LABS: Albumin 2.4 G/DL (3.4-5.0); Bilirubin,Total 0.4 MG/DL (0.2-1.0); Osmolality,Calculated 265.7 MOS/KG (273-304); Potassium 3.7 MMOL/L (3.5-5.1); Total Protein 5.1 G/DL (6.4-8.3)
[2017-05-24 07:25] LABS: Band Neutrophils 2 % (0-10); Lymphocytes 13 % (20-55); Segmented Neutrophils 85 % (50-85); Total Cells Counted 100
[2017-05-24 07:32] LABS: Basophils % 0.1 % (0.0-0.8); Eosinophils % 0.2 % (0.00-10.9); Hematocrit 20.5 VOL% (35.7-47.0); Immature Granulocytes % 3.1 %; Immature Granulocytes Absolute 0.53 #; Lymphocytes # 1.7 10*3/uL (1.4-4.0); Lymphocytes % 9.6 % (21.3-54.2); Mean Corpuscular HGB Conc 33.2 GM/DL (32-36); Mean Corpuscular Hemoglobin 29 PG (27-34); Mean Corpuscular Volume 85.8 FL (87-102); Mean Platelet Volume 9.3 FL (9.6-12.0); Monocytes # 0.8 10*3/uL (0.11-0.8); Monocytes % 4.7 % (1.7-12.7); Neutrophils # 14.2 10*3/uL (1.4-7.4); Neutrophils % 82.3 % (38.7-73.9); Platelet Count 298 T/CUMM (130-400); Red Blood Count 2.39 MC/CUMM (3.8-5.5); Red Cell Distribution Width 15.9 % (9.3-17.3); White Blood Count 17.3 T/CUMM (4-12)
[2017-05-24 07:37] LABS: Hemoglobin 6.8 GM/DL (12.0-16.0)
[2017-05-24] MEDS ORDERED: FUROSEMIDE 20 MG/2 ML VIAL IV ONE (07:56)
[2017-05-24] MEDS ORDERED: SODIUM CHLORIDE 0.9% 1,000 ML IV PRN (07:57)
[2017-05-24 07:58] LABS: Giant Platelets Few; Hypochromasia 1+; Lymphocytes 11 % (20-55); Nucleated Red Blood Cells 1 (0-5); Platelet Estimate Adequate; Segmented Neutrophils 88 % (50-85); Total Cells Counted 100
[2017-05-24] MEDS: AMIODARONE 200 MG TABLET PO SCH (08:34)
[2017-05-24] MEDS: DOCUSATE SODIUM 100 MG CAPSULE PO SCH ×2 (08:34→20:51)
[2017-05-24] MEDS: ASPIRIN EC 81 MG TABLET PO SCH (08:34)
[2017-05-24] MEDS: metOLazone 5 MG TABLET PO SCH (08:34)
[2017-05-24] MEDS: FERROUS GLUCONATE 324 MG TABLET PO SCH (08:34)
[2017-05-24] MEDS: PANTOPRAZOLE 40 MG TABLET PO SCH (08:34)
[2017-05-24] MEDS: CLOPIDOGREL 75 MG TABLET PO SCH (08:34)
[2017-05-24] MEDS: MULTIVITAMIN (OCUVITE) TABLET PO SCH (08:35)
[2017-05-24] MEDS: FLUoxetine 10 MG CAPSULE PO SCH (08:35)
[2017-05-24] MEDS: DILTIAZEM CD 180 MG CAPSULE PO SCH ×2 (08:35→20:51)
[2017-05-24 18:25] LABS: Hematocrit 27.7 VOL% (35.7-47.0); Hemoglobin 9.1 GM/DL (12.0-16.0)
[2017-05-24] MEDS: ROSUVASTATIN 10 MG TABLET PO SCH (20:51)
[2017-05-24] MEDS: ZALEPLON 5 MG CAPSULE PO SCH (20:51)
[2017-05-25] MEDS ORDERED: GLYCERIN ADULT SUPP RECTAL ONE (00:06)
[2017-05-25 06:34] LABS: Albumin 2.5 G/DL (3.4-5.0); Bilirubin,Total 0.6 MG/DL (0.2-1.0); Calcium 7.9 MG/DL (8.5-10.1); Osmolality,Calculated 264.7 MOS/KG (273-304); Potassium 2.7 MMOL/L (3.5-5.1); Total Protein 5.3 G/DL (6.4-8.3)
[2017-05-25] MEDS: AMIODARONE 200 MG TABLET PO SCH (09:09)
[2017-05-25] MEDS: MULTIVITAMIN (OCUVITE) TABLET PO SCH (09:09)
[2017-05-25] MEDS: metOLazone 5 MG TABLET PO SCH (09:09)
[2017-05-25] MEDS: PANTOPRAZOLE 40 MG TABLET PO SCH (09:10)
[2017-05-25] MEDS: DILTIAZEM CD 180 MG CAPSULE PO SCH (09:10)
[2017-05-25] MEDS: ASPIRIN EC 81 MG TABLET PO SCH (09:10)
[2017-05-25] MEDS: DOCUSATE SODIUM 100 MG CAPSULE PO SCH (09:11)
[2017-05-25] MEDS: FERROUS GLUCONATE 324 MG TABLET PO SCH (09:11)
[2017-05-25] MEDS: FLUoxetine 10 MG CAPSULE PO SCH (09:11)
[2017-05-25] MEDS: POTASSIUM CHLORIDE 20 MEQ TABLET PO PRN ×3 (09:11→12:46)
[2017-05-25] MEDS: CLOPIDOGREL 75 MG TABLET PO SCH (09:11)
[2017-05-25 11:26] VITALS: BP 102/58
[2017-05-25] MEDS ORDERED: BACITRACIN OINT 0.9 GM PACK TOP SCH (14:00)
== END 2017-05-25 14:40 | disposition swing bed (61) | DRG 312 ==
LOC: EDBD → EDUNIT# → N.ED 17:04 → N.EDINP 22:39 → SUATTDRO 22:39 → N.5E 23:33
PROVIDERS: ADMIT Internal Medicine; ATTEND Internal Medicine

== ENCOUNTER 2017-07-19 20:27 | Inpatient (IN) ==
[2017-07-19] MEDS ORDERED: FUROSEMIDE 100 MG/10 ML VIAL IV STA (20:58)
[2017-07-19 21:21] LABS: Basophils % 0.3 % (0.0-0.8); Eosinophils # 0.1 10*3/uL (0.0-0.87); Hematocrit 30.1 VOL% (35.7-47.0); Lymphocytes # 1.1 10*3/uL (1.4-4.0); Mean Corpuscular HGB Conc 29.9 GM/DL (32-36); Mean Corpuscular Hemoglobin 27 PG (27-34); Mean Corpuscular Volume 89.3 FL (87-102); Mean Platelet Volume 9.9 FL (9.6-12.0); Monocytes # 0.6 10*3/uL (0.11-0.8); Monocytes % 6.3 % (1.7-12.7); Neutrophils # 8.1 10*3/uL (1.4-7.4); Neutrophils % 80.4 % (38.7-73.9); Platelet Count 203 T/CUMM (130-400); Red Blood Count 3.37 MC/CUMM (3.8-5.5); Red Cell Distribution Width 15.2 % (9.3-17.3); White Blood Count 10.1 T/CUMM (4-12)
[2017-07-19 21:29] LABS: ABG HCO3 32.7 MMOL/L (20-26); ABG Oxygen Saturation 89.8 % (95-100); ABG PCO2 49.4 MM HG (35-48); ABG PH 7.449 (7.35-7.45); ABG PO2 55.6 MM HG (80-95); ABG TCO2 31.7 MMOL/L (23-27); Allen Test Positive; Pt O2 Delivery Device Room Air
[2017-07-19] MEDS: ALBUTEROL 2.5 MG/3 ML NEB RESP TX SCH (21:39)
[2017-07-19] MEDS ORDERED: ALBUTEROL/IPRATROPIUM 3 ML NEB RESP TX STA (21:40)
[2017-07-19] MEDS ORDERED: FUROSEMIDE 40 MG/4 ML VIAL ONE (21:42)
[2017-07-19 21:47] LABS: Alanine Aminotransferase 23 U/L (13-56); Albumin 3.2 G/DL (3.4-5.0); Alkaline Phosphatase 65 U/L (45-117); Aspartate Amino Transferase 19 U/L (0-37); Bilirubin,Total < 0.39 MG/DL (0.2-1.0); Blood Urea Nitrogen 25 MG/DL (7-18); Calcium 8.9 MG/DL (8.5-10.1); Glucose 131 MG/DL (74-106); Osmolality,Calculated 286.3 MOS/KG (273-304); Potassium 3.6 MMOL/L (3.5-5.1); Sodium 141 MMOL/L (136-145); Total Protein 6.6 G/DL (6.4-8.3); Troponin I Only < 0.015 NG/ML (0.00-0.045)
[2017-07-20] MEDS ORDERED: ACETAMINOPHEN 325 MG TABLET PO PRN (00:13)
[2017-07-20] MEDS ORDERED: ONDANSETRON 4 MG/2 ML VIAL IV PRN (00:13)
[2017-07-20] MEDS ORDERED: MAGNESIUM SULF RIDER 4 GM in PREMIX 1 EACH IV PRN (00:21)
[2017-07-20] MEDS ORDERED: MAGNESIUM SULF RIDER 2 GM in PREMIX 1 EACH IV PRN (00:21)
[2017-07-20] MEDS ORDERED: BISACODYL 5 MG TABLET PO PRN (00:22)
[2017-07-20] MEDS ORDERED: ALBUTEROL 2.5 MG/3 ML NEB RESP TX PRN (00:22)
[2017-07-20] MEDS ORDERED: BISACODYL 10 MG SUPP RECTAL PRN (00:22)
[2017-07-20] MEDS ORDERED: MAGNESIUM HYDROXIDE SUSP 30 ML UDCUP PO PRN (00:22)
[2017-07-20] MEDS ORDERED: ALUMINUM/MAGNES/SIMETH MAX STR 30 ML UDCUP PO PRN (00:22)
[2017-07-20] MEDS: clonazePAM 0.5 MG TABLET PO PRN ×2 (02:25→20:43)
[2017-07-20 04:27] LABS: Basophils % 0.2 % (0.0-0.8); Eosinophils # 0.1 10*3/uL (0.0-0.87); Eosinophils % 1.2 % (0.00-10.9); Hematocrit 27.9 VOL% (35.7-47.0); Hemoglobin 8.5 GM/DL (12.0-16.0); Immature Granulocytes % 0.9 %; Immature Granulocytes Absolute 0.08 #; Lymphocytes # 1.3 10*3/uL (1.4-4.0); Lymphocytes % 13.7 % (21.3-54.2); Mean Corpuscular HGB Conc 30.5 GM/DL (32-36); Mean Corpuscular Hemoglobin 26 PG (27-34); Mean Corpuscular Volume 86.6 FL (87-102); Monocytes # 0.6 10*3/uL (0.11-0.8); Monocytes % 6.8 % (1.7-12.7); Neutrophils # 7.2 10*3/uL (1.4-7.4); Neutrophils % 77.2 % (38.7-73.9); Platelet Count 208 T/CUMM (130-400); Red Blood Count 3.22 MC/CUMM (3.8-5.5); Red Cell Distribution Width 15.4 % (9.3-17.3); White Blood Count 9.4 T/CUMM (4-12)
[2017-07-20 04:57] LABS: Bilirubin,Total 0.6 MG/DL (0.2-1.0); Calcium 8.8 MG/DL (8.5-10.1); Osmolality,Calculated 287.1 MOS/KG (273-304); Potassium 2.9 MMOL/L (3.5-5.1); Total Protein 5.8 G/DL (6.4-8.3)
[2017-07-20] MEDS: POTASSIUM CHLORIDE 20 MEQ TABLET PO PRN ×4 (06:49→14:47)
[2017-07-20] MEDS: ALBUTEROL/IPRATROPIUM 3 ML NEB RESP TX SCH ×3 (07:30→20:21)
[2017-07-20] MEDS: FUROSEMIDE 20 MG/2 ML VIAL IV SCH ×2 (09:27→16:06)
[2017-07-20] MEDS: POTASSIUM CHLORIDE 10 MEQ TABLET PO SCH ×2 (09:28→20:42)
[2017-07-20] MEDS: PANTOPRAZOLE 40 MG TABLET PO SCH (09:28)
[2017-07-20] MEDS: DILTIAZEM CD 180 MG CAPSULE PO SCH ×2 (09:28→20:41)
[2017-07-20] MEDS: MULTIVITAMIN (OCUVITE) TABLET PO SCH (09:28)
[2017-07-20] MEDS: AMIODARONE 200 MG TABLET PO SCH (09:28)
[2017-07-20] MEDS: metOLazone 5 MG TABLET PO SCH (09:29)
[2017-07-20] MEDS: FERROUS GLUCONATE 324 MG TABLET PO SCH (09:29)
[2017-07-20] MEDS: ASPIRIN EC 81 MG TABLET PO SCH (09:29)
[2017-07-20] MEDS: CLOPIDOGREL 75 MG TABLET PO SCH (09:29)
[2017-07-20] MEDS: FLUoxetine 10 MG CAPSULE PO SCH (11:06)
[2017-07-20] MEDS: ZALEPLON 5 MG CAPSULE PO SCH (21:45)
[2017-07-20] MEDS ORDERED: POTASSIUM CHLORIDE RIDER 10 MEQ in PREMIX 1 EACH IV PRN (23:03)
[2017-07-21] MEDS: ALBUTEROL/IPRATROPIUM 3 ML NEB RESP TX SCH ×4 (01:19→18:50)
[2017-07-21] MEDS ORDERED: POTASSIUM CHLORIDE INJ 40 MEQ in SODIUM CHLORIDE 0.9% 380 ML IV SCH (02:00)
[2017-07-21 05:21] LABS: Basophils % 0.4 % (0.0-0.8); Eosinophils # 0.1 10*3/uL (0.0-0.87); Eosinophils % 1.6 % (0.00-10.9); Hematocrit 28.3 VOL% (35.7-47.0); Hemoglobin 8.7 GM/DL (12.0-16.0); Immature Granulocytes % 0.8 %; Immature Granulocytes Absolute 0.07 #; Lymphocytes # 1.3 10*3/uL (1.4-4.0); Lymphocytes % 15.2 % (21.3-54.2); Mean Corpuscular HGB Conc 30.7 GM/DL (32-36); Mean Corpuscular Hemoglobin 27 PG (27-34); Mean Corpuscular Volume 87.3 FL (87-102); Monocytes # 0.5 10*3/uL (0.11-0.8); Monocytes % 5.6 % (1.7-12.7); Neutrophils # 6.6 10*3/uL (1.4-7.4); Neutrophils % 76.4 % (38.7-73.9); Platelet Count 191 T/CUMM (130-400); Red Blood Count 3.24 MC/CUMM (3.8-5.5); Red Cell Distribution Width 15.9 % (9.3-17.3); White Blood Count 8.6 T/CUMM (4-12)
[2017-07-21 06:04] LABS: Calcium 7.9 MG/DL (8.5-10.1); Osmolality,Calculated 282.4 MOS/KG (273-304); Potassium 3.6 MMOL/L (3.5-5.1)
[2017-07-21] MEDS: MULTIVITAMIN (OCUVITE) TABLET PO SCH (09:32)
[2017-07-21] MEDS: POTASSIUM CHLORIDE 10 MEQ TABLET PO SCH ×2 (09:32→21:51)
[2017-07-21] MEDS: DILTIAZEM CD 180 MG CAPSULE PO SCH ×2 (09:32→21:51)
[2017-07-21] MEDS: metOLazone 5 MG TABLET PO SCH (09:32)
[2017-07-21] MEDS: PANTOPRAZOLE 40 MG TABLET PO SCH (09:32)
[2017-07-21] MEDS: POTASSIUM CHLORIDE 20 MEQ TABLET PO PRN ×3 (09:32→15:23)
[2017-07-21] MEDS: FERROUS GLUCONATE 324 MG TABLET PO SCH (09:33)
[2017-07-21] MEDS: AMIODARONE 200 MG TABLET PO SCH (09:33)
[2017-07-21] MEDS: ASPIRIN EC 81 MG TABLET PO SCH (09:33)
[2017-07-21] MEDS: CLOPIDOGREL 75 MG TABLET PO SCH (09:33)
[2017-07-21] MEDS: FUROSEMIDE 20 MG/2 ML VIAL IV SCH ×2 (09:33→15:22)
[2017-07-21] MEDS: FLUoxetine 10 MG CAPSULE PO SCH (12:33)
[2017-07-21] MEDS: clonazePAM 0.5 MG TABLET PO PRN (21:50)
[2017-07-21] MEDS: ZALEPLON 5 MG CAPSULE PO SCH (21:52)
[2017-07-22] MEDS: ALBUTEROL/IPRATROPIUM 3 ML NEB RESP TX SCH ×4 (00:20→19:13)
[2017-07-22] MEDS: POTASSIUM CHLORIDE 20 MEQ TABLET PO PRN ×2 (10:20→14:02)
[2017-07-22] MEDS: AMIODARONE 200 MG TABLET PO SCH (10:21)
[2017-07-22] MEDS: FERROUS GLUCONATE 324 MG TABLET PO SCH (10:21)
[2017-07-22] MEDS: PANTOPRAZOLE 40 MG TABLET PO SCH (10:21)
[2017-07-22] MEDS: MULTIVITAMIN (OCUVITE) TABLET PO SCH (10:21)
[2017-07-22] MEDS: CLOPIDOGREL 75 MG TABLET PO SCH (10:21)
[2017-07-22] MEDS: DILTIAZEM CD 180 MG CAPSULE PO SCH ×2 (10:22→22:09)
[2017-07-22] MEDS: POTASSIUM CHLORIDE 10 MEQ TABLET PO SCH ×2 (10:22→22:10)
[2017-07-22] MEDS: metOLazone 5 MG TABLET PO SCH (10:22)
[2017-07-22] MEDS: ASPIRIN EC 81 MG TABLET PO SCH (10:23)
[2017-07-22] MEDS: FUROSEMIDE 20 MG/2 ML VIAL IV SCH ×2 (10:23→15:48)
[2017-07-22] MEDS: FLUoxetine 10 MG CAPSULE PO SCH (14:02)
[2017-07-22] MEDS: FUROSEMIDE 40 MG TABLET PO SCH (17:42)
[2017-07-22] MEDS: clonazePAM 0.5 MG TABLET PO PRN (22:10)
[2017-07-22] MEDS: ZALEPLON 5 MG CAPSULE PO SCH (22:10)
[2017-07-23] MEDS: ALBUTEROL/IPRATROPIUM 3 ML NEB RESP TX SCH ×4 (01:26→19:24)
[2017-07-23] MEDS: MULTIVITAMIN (OCUVITE) TABLET PO SCH (08:57)
[2017-07-23] MEDS: AMIODARONE 200 MG TABLET PO SCH (08:57)
[2017-07-23] MEDS: metOLazone 5 MG TABLET PO SCH (08:58)
[2017-07-23] MEDS: DILTIAZEM CD 180 MG CAPSULE PO SCH ×2 (08:58→21:22)
[2017-07-23] MEDS: POTASSIUM CHLORIDE 10 MEQ TABLET PO SCH ×2 (08:58→21:21)
[2017-07-23] MEDS: PANTOPRAZOLE 40 MG TABLET PO SCH (08:58)
[2017-07-23] MEDS: FUROSEMIDE 40 MG TABLET PO SCH ×2 (08:58→15:24)
[2017-07-23] MEDS: FERROUS GLUCONATE 324 MG TABLET PO SCH (09:03)
[2017-07-23] MEDS: FLUoxetine 10 MG CAPSULE PO SCH (11:10)
[2017-07-23] MEDS: predniSONE 20 MG TABLET PO SCH (11:10)
[2017-07-23] MEDS: clonazePAM 0.5 MG TABLET PO PRN (21:21)
[2017-07-23] MEDS: ZALEPLON 5 MG CAPSULE PO SCH (21:23)
[2017-07-24] MEDS: ALBUTEROL/IPRATROPIUM 3 ML NEB RESP TX SCH ×4 (01:42→20:10)
[2017-07-24] MEDS ORDERED: ASPIRIN 325 MG TABLET PO SCH (09:00)
[2017-07-24] MEDS: POTASSIUM CHLORIDE 10 MEQ TABLET PO SCH ×2 (09:04→20:45)
[2017-07-24] MEDS: ASPIRIN CHEW 81 MG TABLET PO SCH (09:04)
[2017-07-24] MEDS: DILTIAZEM CD 180 MG CAPSULE PO SCH ×2 (09:04→20:45)
[2017-07-24] MEDS: MULTIVITAMIN (OCUVITE) TABLET PO SCH (09:04)
[2017-07-24] MEDS: FERROUS GLUCONATE 324 MG TABLET PO SCH (09:04)
[2017-07-24] MEDS: AMIODARONE 200 MG TABLET PO SCH (09:04)
[2017-07-24] MEDS: metOLazone 5 MG TABLET PO SCH (09:04)
[2017-07-24] MEDS: predniSONE 20 MG TABLET PO SCH (09:04)
[2017-07-24] MEDS: PANTOPRAZOLE 40 MG TABLET PO SCH (09:04)
[2017-07-24] MEDS: FUROSEMIDE 40 MG TABLET PO SCH ×2 (09:04→16:27)
[2017-07-24] MEDS: FLUoxetine 10 MG CAPSULE PO SCH (12:33)
[2017-07-24] MEDS: clonazePAM 0.5 MG TABLET PO PRN (20:45)
[2017-07-24] MEDS: ZALEPLON 5 MG CAPSULE PO SCH (21:50)
[2017-07-25] MEDS: ALBUTEROL/IPRATROPIUM 3 ML NEB RESP TX SCH ×4 (00:49→19:05)
[2017-07-25] MEDS: FERROUS GLUCONATE 324 MG TABLET PO SCH (09:44)
[2017-07-25] MEDS: FUROSEMIDE 40 MG TABLET PO SCH ×2 (09:44→15:48)
[2017-07-25] MEDS: metOLazone 5 MG TABLET PO SCH (09:44)
[2017-07-25] MEDS: PANTOPRAZOLE 40 MG TABLET PO SCH (09:44)
[2017-07-25] MEDS: DOCUSATE SODIUM 100 MG CAPSULE PO PRN (09:44)
[2017-07-25] MEDS: ASPIRIN CHEW 81 MG TABLET PO SCH (09:44)
[2017-07-25] MEDS: DILTIAZEM CD 180 MG CAPSULE PO SCH ×2 (09:44→20:27)
[2017-07-25] MEDS: AMIODARONE 200 MG TABLET PO SCH (09:45)
[2017-07-25] MEDS: POTASSIUM CHLORIDE 10 MEQ TABLET PO SCH ×2 (09:45→20:28)
[2017-07-25] MEDS: MULTIVITAMIN (OCUVITE) TABLET PO SCH (09:45)
[2017-07-25] MEDS: predniSONE 20 MG TABLET PO SCH (09:45)
[2017-07-25] MEDS: FLUoxetine 10 MG CAPSULE PO SCH (13:12)
[2017-07-25] MEDS: clonazePAM 0.5 MG TABLET PO PRN (20:28)
[2017-07-25] MEDS: ZALEPLON 5 MG CAPSULE PO SCH (21:47)
[2017-07-25] MEDS ORDERED: diphenhydrAMINE CAP 25 MG CAPSULE ONE (23:18)
[2017-07-25] MEDS ORDERED: diphenhydrAMINE CAP 25 MG CAPSULE PO PRN (23:25)
[2017-07-26] MEDS: ALBUTEROL/IPRATROPIUM 3 ML NEB RESP TX SCH ×4 (00:12→21:17)
[2017-07-26] MEDS: AMIODARONE 200 MG TABLET PO SCH (08:36)
[2017-07-26] MEDS: MULTIVITAMIN (OCUVITE) TABLET PO SCH (08:36)
[2017-07-26] MEDS: POTASSIUM CHLORIDE 10 MEQ TABLET PO SCH ×2 (08:36→21:44)
[2017-07-26] MEDS: predniSONE 20 MG TABLET PO SCH (08:36)
[2017-07-26] MEDS: FUROSEMIDE 40 MG TABLET PO SCH ×2 (08:36→16:33)
[2017-07-26] MEDS: PANTOPRAZOLE 40 MG TABLET PO SCH (08:36)
[2017-07-26] MEDS: ASPIRIN CHEW 81 MG TABLET PO SCH (08:36)
[2017-07-26] MEDS: DILTIAZEM CD 180 MG CAPSULE PO SCH ×2 (08:37→21:44)
[2017-07-26] MEDS: FERROUS GLUCONATE 324 MG TABLET PO SCH (08:37)
[2017-07-26] MEDS: metOLazone 5 MG TABLET PO SCH (08:37)
[2017-07-26] MEDS: FLUoxetine 10 MG CAPSULE PO SCH (11:56)
[2017-07-26] MEDS: ZALEPLON 5 MG CAPSULE PO SCH (21:44)
[2017-07-26] MEDS: clonazePAM 0.5 MG TABLET PO PRN (23:22)
[2017-07-27] MEDS: ALBUTEROL/IPRATROPIUM 3 ML NEB RESP TX SCH ×4 (02:53→19:18)
[2017-07-27] MEDS: DILTIAZEM CD 180 MG CAPSULE PO SCH ×2 (10:15→20:21)
[2017-07-27] MEDS: PANTOPRAZOLE 40 MG TABLET PO SCH (10:16)
[2017-07-27] MEDS: AMIODARONE 200 MG TABLET PO SCH (10:16)
[2017-07-27] MEDS: ASPIRIN CHEW 81 MG TABLET PO SCH (10:16)
[2017-07-27] MEDS: metOLazone 5 MG TABLET PO SCH (10:16)
[2017-07-27] MEDS: FUROSEMIDE 40 MG TABLET PO SCH ×2 (10:16→20:09)
[2017-07-27] MEDS: MULTIVITAMIN (OCUVITE) TABLET PO SCH (10:17)
[2017-07-27] MEDS: predniSONE 20 MG TABLET PO SCH (10:17)
[2017-07-27] MEDS: POTASSIUM CHLORIDE 10 MEQ TABLET PO SCH ×2 (10:17→20:21)
[2017-07-27] MEDS: FERROUS GLUCONATE 324 MG TABLET PO SCH (10:19)
[2017-07-27] MEDS: FLUoxetine 10 MG CAPSULE PO SCH (20:09)
[2017-07-27] MEDS: ZALEPLON 5 MG CAPSULE PO SCH (22:18)
[2017-07-28] MEDS: ALBUTEROL/IPRATROPIUM 3 ML NEB RESP TX SCH ×3 (00:30→12:07)
[2017-07-28] MEDS: AMIODARONE 200 MG TABLET PO SCH (10:22)
[2017-07-28] MEDS: PANTOPRAZOLE 40 MG TABLET PO SCH (10:24)
[2017-07-28] MEDS: DILTIAZEM CD 180 MG CAPSULE PO SCH (10:25)
[2017-07-28] MEDS: POTASSIUM CHLORIDE 10 MEQ TABLET PO SCH (10:26)
[2017-07-28] MEDS: FERROUS GLUCONATE 324 MG TABLET PO SCH (10:26)
[2017-07-28] MEDS: MULTIVITAMIN (OCUVITE) TABLET PO SCH (10:26)
[2017-07-28] MEDS: predniSONE 20 MG TABLET PO SCH (10:27)
[2017-07-28] MEDS: metOLazone 5 MG TABLET PO SCH (10:27)
[2017-07-28] MEDS: DOCUSATE SODIUM 100 MG CAPSULE PO PRN (10:27)
[2017-07-28] MEDS: ASPIRIN CHEW 81 MG TABLET PO SCH (10:27)
[2017-07-28] MEDS: FUROSEMIDE 40 MG TABLET PO SCH (10:27)
[2017-07-28 11:34] VITALS: BP 124/48
[2017-07-28] MEDS: FLUoxetine 10 MG CAPSULE PO SCH (13:21)
== END 2017-07-28 13:51 | disposition swing bed (61) | DRG 292 ==
LOC: EDUNIT# → N.ED 20:27 → N.EDINP 07-20 00:11 → SUATTDRO 07-20 00:11 → N.TELES 07-20 01:26
PROVIDERS: ADMIT Internal Medicine; ATTEND Internal Medicine

== ENCOUNTER 2017-08-17 12:18 | Inpatient (IN) ==
[2017-08-17] MEDS ORDERED: ALBUTEROL/IPRATROPIUM 3 ML NEB RESP TX STA ×2 (12:49→14:16)
[2017-08-17] MEDS: ALBUTEROL/IPRATROPIUM 3 ML NEB RESP TX SCH ×2 (14:29→19:55)
[2017-08-17] MEDS ORDERED: DOCUSATE SODIUM 100 MG CAPSULE PO PRN (15:06)
[2017-08-17] MEDS ORDERED: ONDANSETRON 4 MG/2 ML VIAL IV PRN (15:06)
[2017-08-17] MEDS ORDERED: guaiFENesin/DM ER 600-30 MG TABLET PO PRN (15:06)
[2017-08-17] MEDS ORDERED: ALUMINUM/MAGNES/SIMETH MAX STR 30 ML UDCUP PO PRN (15:10)
[2017-08-17] MEDS ORDERED: NON-FORMULARY MEDICATION (Albuterol Inhaler 2 PUFF) INH PRN (15:10)
[2017-08-17] MEDS ORDERED: PANTOPRAZOLE 40 MG TABLET PO SCH (15:30)
[2017-08-17] MEDS: PANTOPRAZOLE 40 MG TABLET PO SCH (16:05)
[2017-08-17] MEDS: ASPIRIN CHEW 81 MG TABLET PO SCH (16:05)
[2017-08-17] MEDS: methylPREDNISolone SOD SUC 40 MG/1 ML VIAL IV SCH ×2 (16:06→23:39)
[2017-08-17] MEDS ORDERED: LEVOFLOXACIN INJ 100 ML IV ONE (17:47)
[2017-08-17] MEDS: SODIUM CHLORIDE 0.9% 1,000 ML IV SCH (17:54)
[2017-08-17] MEDS: LEVOFLOXACIN INJ 500 MG in PREMIX 1 EACH IV SCH (17:56)
[2017-08-17] MEDS: MULTIVITAMIN (OCUVITE) TABLET PO SCH (21:17)
[2017-08-17] MEDS: AMIODARONE 200 MG TABLET PO SCH (21:17)
[2017-08-17] MEDS: DOCUSATE SODIUM 100 MG CAPSULE PO PRN (21:21)
[2017-08-17] MEDS: FLUoxetine 10 MG CAPSULE PO SCH (21:21)
[2017-08-17] MEDS: clonazePAM 0.5 MG TABLET PO PRN (21:21)
[2017-08-17] MEDS: ENOXAPARIN 30 MG/0.3 ML SYRINGE SUBCUT SCH (21:22)
[2017-08-17] MEDS: DILTIAZEM CD 180 MG CAPSULE PO SCH (21:24)
[2017-08-17] MEDS: diphenhydrAMINE CAP 25 MG CAPSULE PO PRN (23:38)
[2017-08-18] MEDS: ALBUTEROL/IPRATROPIUM 3 ML NEB RESP TX SCH ×4 (00:07→20:00)
[2017-08-18] MEDS ORDERED: ZALEPLON 5 MG CAPSULE ONE (02:15)
[2017-08-18 04:58] LABS: Basophils % 0.1 % (0.0-0.8); Hematocrit 25.4 VOL% (35.7-47.0); Hemoglobin 7.5 GM/DL (12.0-16.0); Immature Granulocytes % 0.9 %; Lymphocytes # 0.1 10*3/uL (1.4-4.0); Lymphocytes % 0.7 % (21.3-54.2); Mean Corpuscular HGB Conc 29.5 GM/DL (32-36); Mean Corpuscular Hemoglobin 26 PG (27-34); Mean Corpuscular Volume 86.4 FL (87-102); Monocytes # 0.4 10*3/uL (0.11-0.8); Monocytes % 3.4 % (1.7-12.7); NRBC # 0.02 10*3/uL; Neutrophils # 10.5 10*3/uL (1.4-7.4); Neutrophils % 94.9 % (38.7-73.9); Platelet Count 246 T/CUMM (130-400); Red Blood Count 2.94 MC/CUMM (3.8-5.5); Red Cell Distribution Width 15.4 % (9.3-17.3)
[2017-08-18 05:27] LABS: Calcium 8.4 MG/DL (8.5-10.1); Osmolality,Calculated 286.2 MOS/KG (273-304); Potassium 4.1 MMOL/L (3.5-5.1)
[2017-08-18 05:28] LABS: Hypochromasia 1+; Nucleated Red Blood Cells 1 (0-5); Platelet Estimate Adequate; Segmented Neutrophils 95 % (50-85); Total Cells Counted 100
[2017-08-18] MEDS: methylPREDNISolone SOD SUC 40 MG/1 ML VIAL IV SCH ×2 (09:13→17:32)
[2017-08-18] MEDS: DILTIAZEM CD 180 MG CAPSULE PO SCH ×2 (09:13→21:03)
[2017-08-18] MEDS: AMIODARONE 200 MG TABLET PO SCH (09:13)
[2017-08-18] MEDS: PANTOPRAZOLE 40 MG TABLET PO SCH (09:13)
[2017-08-18] MEDS: ASPIRIN CHEW 81 MG TABLET PO SCH (09:13)
[2017-08-18] MEDS: MULTIVITAMIN (OCUVITE) TABLET PO SCH (09:13)
[2017-08-18] MEDS: FERROUS GLUCONATE 324 MG TABLET PO SCH (09:14)
[2017-08-18] MEDS ORDERED: SODIUM CHLORIDE 0.9% 1,000 ML IV PRN (09:24)
[2017-08-18] MEDS: FLUoxetine 10 MG CAPSULE PO SCH (13:01)
[2017-08-18] MEDS: LEVOFLOXACIN INJ 500 MG in PREMIX 1 EACH IV SCH (17:31)
[2017-08-18] MEDS: SODIUM CHLORIDE 0.9% 1,000 ML IV SCH (20:22)
[2017-08-18] MEDS: ENOXAPARIN 30 MG/0.3 ML SYRINGE SUBCUT SCH (21:02)
[2017-08-18] MEDS: clonazePAM 0.5 MG TABLET PO PRN (21:03)
[2017-08-18] MEDS: ZALEPLON 5 MG CAPSULE PO SCH (21:03)
[2017-08-19] MEDS: ALBUTEROL/IPRATROPIUM 3 ML NEB RESP TX SCH ×4 (01:20→18:53)
[2017-08-19] MEDS: methylPREDNISolone SOD SUC 40 MG/1 ML VIAL IV SCH ×3 (04:02→21:30)
[2017-08-19 04:39] LABS: Basophils % 0.1 % (0.0-0.8); Hematocrit 30.6 VOL% (35.7-47.0); Hemoglobin 9.5 GM/DL (12.0-16.0); Immature Granulocytes Absolute 0.09 #; Lymphocytes # 0.1 10*3/uL (1.4-4.0); Lymphocytes % 1.3 % (21.3-54.2); Mean Corpuscular Hemoglobin 26 PG (27-34); Mean Corpuscular Volume 82.7 FL (87-102); Mean Platelet Volume 9.5 FL (9.6-12.0); Monocytes # 0.4 10*3/uL (0.11-0.8); Monocytes % 4.5 % (1.7-12.7); Neutrophils % 93.1 % (38.7-73.9); Platelet Count 226 T/CUMM (130-400); White Blood Count 8.6 T/CUMM (4-12)
[2017-08-19 05:09] LABS: Hypochromasia 2+; Lymphocytes 2 % (20-55); Ovalocytes Slight; Segmented Neutrophils 97 % (50-85); Total Cells Counted 100
[2017-08-19 05:10] LABS: Anisocytosis 1+; Microcytosis 1+; Platelet Estimate Normal; Polychromasia Slight
[2017-08-19 05:11] LABS: Calcium 8.5 MG/DL (8.5-10.1); Osmolality,Calculated 285.1 MOS/KG (273-304); Potassium 3.5 MMOL/L (3.5-5.1)
[2017-08-19] MEDS: AMIODARONE 200 MG TABLET PO SCH (09:32)
[2017-08-19] MEDS: FERROUS GLUCONATE 324 MG TABLET PO SCH (09:33)
[2017-08-19] MEDS: DILTIAZEM CD 180 MG CAPSULE PO SCH ×2 (09:33→21:31)
[2017-08-19] MEDS: PANTOPRAZOLE 40 MG TABLET PO SCH (09:33)
[2017-08-19] MEDS: MULTIVITAMIN (OCUVITE) TABLET PO SCH (09:33)
[2017-08-19] MEDS: ASPIRIN CHEW 81 MG TABLET PO SCH (09:33)
[2017-08-19] MEDS: SODIUM CHLORIDE 0.9% 1,000 ML IV SCH (10:04)
[2017-08-19] MEDS ORDERED: SODIUM CHLORIDE 0.65% NASAL SPRAY 45 ML BOTTLE BOTH NARES PRN (10:45)
[2017-08-19] MEDS: FLUoxetine 10 MG CAPSULE PO SCH (11:58)
[2017-08-19] MEDS: NYSTATIN 500,000 UNIT/5 ML UDCUP SWISH/SWAL SCH ×3 (13:20→21:31)
[2017-08-19] MEDS: CEFTAROLINE 400 MG in SODIUM CHLORIDE 0.9% 100 ML IV SCH (13:20)
[2017-08-19] MEDS: LEVOFLOXACIN INJ 500 MG in PREMIX 1 EACH IV SCH (17:30)
[2017-08-19] MEDS: ZALEPLON 5 MG CAPSULE PO SCH (21:31)
[2017-08-19] MEDS: clonazePAM 0.5 MG TABLET PO PRN (21:31)
[2017-08-19] MEDS: ENOXAPARIN 30 MG/0.3 ML SYRINGE SUBCUT SCH (21:32)
[2017-08-20] MEDS: ALBUTEROL/IPRATROPIUM 3 ML NEB RESP TX SCH ×4 (00:19→19:45)
[2017-08-20] MEDS: CEFTAROLINE 400 MG in SODIUM CHLORIDE 0.9% 100 ML IV SCH ×3 (00:42→23:42)
[2017-08-20] MEDS: methylPREDNISolone SOD SUC 40 MG/1 ML VIAL IV SCH ×2 (05:13→16:25)
[2017-08-20] MEDS: SODIUM CHLORIDE 0.9% 1,000 ML IV SCH (05:20)
[2017-08-20 05:39] LABS: Hematocrit 30.2 VOL% (35.7-47.0); Hemoglobin 9.3 GM/DL (12.0-16.0); Immature Granulocytes % 0.5 %; Immature Granulocytes Absolute 0.04 #; Lymphocytes # 0.1 10*3/uL (1.4-4.0); Lymphocytes % 0.7 % (21.3-54.2); Mean Corpuscular HGB Conc 30.8 GM/DL (32-36); Mean Corpuscular Hemoglobin 26 PG (27-34); Mean Corpuscular Volume 83.2 FL (87-102); Monocytes # 0.3 10*3/uL (0.11-0.8); Monocytes % 3.3 % (1.7-12.7); NRBC # 0.02 10*3/uL; Neutrophils # 7.7 10*3/uL (1.4-7.4); Neutrophils % 95.5 % (38.7-73.9); Platelet Count 214 T/CUMM (130-400); Red Blood Count 3.63 MC/CUMM (3.8-5.5); Red Cell Distribution Width 15.9 % (9.3-17.3); White Blood Count 8.1 T/CUMM (4-12)
[2017-08-20 06:01] LABS: Band Neutrophils 1 % (0-10); Hypochromasia 1+; Lymphocytes 1 % (20-55); Microcytosis 1+; Ovalocytes Slight; Segmented Neutrophils 96 % (50-85); Total Cells Counted 100
[2017-08-20 06:16] LABS: Calcium 8.4 MG/DL (8.5-10.1); Potassium 3.4 MMOL/L (3.5-5.1)
[2017-08-20] MEDS: FERROUS GLUCONATE 324 MG TABLET PO SCH (08:32)
[2017-08-20] MEDS: DILTIAZEM CD 180 MG CAPSULE PO SCH ×2 (08:32→21:34)
[2017-08-20] MEDS: POTASSIUM CHLORIDE 20 MEQ/15 ML UDCUP PER TUBE PRN ×3 (08:32→13:28)
[2017-08-20] MEDS: DOCUSATE SODIUM 100 MG CAPSULE PO PRN (08:33)
[2017-08-20] MEDS: ASPIRIN CHEW 81 MG TABLET PO SCH (08:33)
[2017-08-20] MEDS: AMIODARONE 200 MG TABLET PO SCH (08:33)
[2017-08-20] MEDS: PANTOPRAZOLE 40 MG TABLET PO SCH (08:33)
[2017-08-20] MEDS: NYSTATIN 500,000 UNIT/5 ML UDCUP SWISH/SWAL SCH ×4 (08:34→21:33)
[2017-08-20] MEDS: MULTIVITAMIN (OCUVITE) TABLET PO SCH (08:34)
[2017-08-20] MEDS: FLUoxetine 10 MG CAPSULE PO SCH (11:04)
[2017-08-20] MEDS: diphenhydrAMINE CAP 25 MG CAPSULE PO PRN (13:36)
[2017-08-20] MEDS: LEVOFLOXACIN INJ 500 MG in PREMIX 1 EACH IV SCH (16:30)
[2017-08-20] MEDS: ENOXAPARIN 40 MG/0.4 ML SYRINGE SUBCUT SCH (21:31)
[2017-08-20] MEDS: ZALEPLON 5 MG CAPSULE PO SCH (21:37)
[2017-08-20] MEDS: clonazePAM 0.5 MG TABLET PO PRN (23:42)
[2017-08-21] MEDS: ALBUTEROL/IPRATROPIUM 3 ML NEB RESP TX SCH ×4 (01:21→20:38)
[2017-08-21] MEDS: methylPREDNISolone SOD SUC 40 MG/1 ML VIAL IV SCH ×2 (04:55→18:32)
[2017-08-21] MEDS ORDERED: LIDOCAINE 2% 20 ML VIAL RESP TX ONE (07:00)
[2017-08-21] MEDS ORDERED: PROMETHAZINE 25 MG/1 ML VIAL IM ONE (07:00)
[2017-08-21] MEDS ORDERED: LIDOCAINE 2% VISCOUS 100 ML BOTTLE SWISH/SPIT ONE (07:00)
[2017-08-21] MEDS ORDERED: GLYCOPYRROLATE 0.4 MG/2 ML VIAL IM ONE (07:00)
[2017-08-21] MEDS ORDERED: MEPERIDINE 50 MG/1 ML VIAL IV ONE (07:00)
[2017-08-21] MEDS ORDERED: LIDOCAINE 1% 20 ML VIAL MISC INJ ONE (07:00)
[2017-08-21] MEDS ORDERED: MIDAZOLAM 2 MG/2 ML VIAL ONE (07:23)
[2017-08-21] MEDS ORDERED: MIDAZOLAM 2 MG/2 ML VIAL IV ONE (07:30)
[2017-08-21] MEDS: ARFORMOTEROL 15 MCG/2 ML NEB RESP TX SCH ×2 (08:40→20:38)
[2017-08-21] MEDS: NYSTATIN 500,000 UNIT/5 ML UDCUP SWISH/SWAL SCH ×4 (10:12→20:20)
[2017-08-21] MEDS: PANTOPRAZOLE 40 MG TABLET PO SCH (10:12)
[2017-08-21] MEDS: MULTIVITAMIN (OCUVITE) TABLET PO SCH (10:12)
[2017-08-21] MEDS: DILTIAZEM CD 180 MG CAPSULE PO SCH ×2 (10:12→20:17)
[2017-08-21] MEDS: AMIODARONE 200 MG TABLET PO SCH (10:12)
[2017-08-21] MEDS: ASPIRIN CHEW 81 MG TABLET PO SCH (10:12)
[2017-08-21] MEDS: FERROUS GLUCONATE 324 MG TABLET PO SCH (10:13)
[2017-08-21] MEDS: FLUoxetine 10 MG CAPSULE PO SCH (13:37)
[2017-08-21] MEDS: CEFTAROLINE 400 MG in SODIUM CHLORIDE 0.9% 100 ML IV SCH ×2 (13:40→23:24)
[2017-08-21] MEDS: SODIUM CHLORIDE 0.9% 1,000 ML IV SCH ×2 (13:44→19:59)
[2017-08-21] MEDS: LEVOFLOXACIN INJ 500 MG in PREMIX 1 EACH IV SCH (18:32)
[2017-08-21] MEDS: ZALEPLON 5 MG CAPSULE PO SCH (20:19)
[2017-08-21] MEDS: ENOXAPARIN 40 MG/0.4 ML SYRINGE SUBCUT SCH (20:19)
[2017-08-21] MEDS: clonazePAM 0.5 MG TABLET PO PRN (21:51)
[2017-08-22] MEDS: ALBUTEROL/IPRATROPIUM 3 ML NEB RESP TX SCH ×4 (00:49→19:48)
[2017-08-22] MEDS: methylPREDNISolone SOD SUC 40 MG/1 ML VIAL IV SCH ×2 (03:27→17:50)
[2017-08-22 03:57] LABS: Calcium 8.3 MG/DL (8.5-10.1); Osmolality,Calculated 279.4 MOS/KG (273-304); Potassium 4.1 MMOL/L (3.5-5.1)
[2017-08-22] MEDS: ARFORMOTEROL 15 MCG/2 ML NEB RESP TX SCH ×2 (07:05→19:48)
[2017-08-22] MEDS: ASPIRIN CHEW 81 MG TABLET PO SCH (09:54)
[2017-08-22] MEDS: DILTIAZEM CD 180 MG CAPSULE PO SCH ×2 (09:54→21:17)
[2017-08-22] MEDS: MULTIVITAMIN (OCUVITE) TABLET PO SCH (09:54)
[2017-08-22] MEDS: PANTOPRAZOLE 40 MG TABLET PO SCH (09:55)
[2017-08-22] MEDS: AMIODARONE 200 MG TABLET PO SCH (09:55)
[2017-08-22] MEDS: NYSTATIN 500,000 UNIT/5 ML UDCUP SWISH/SWAL SCH ×4 (09:55→21:19)
[2017-08-22] MEDS: FERROUS GLUCONATE 324 MG TABLET PO SCH (09:55)
[2017-08-22] MEDS: BISACODYL 5 MG TABLET PO PRN (10:39)
[2017-08-22] MEDS ORDERED: BISACODYL 10 MG SUPP RECTAL PRN (11:24)
[2017-08-22] MEDS: FLUoxetine 10 MG CAPSULE PO SCH (11:58)
[2017-08-22] MEDS: CEFTAROLINE 400 MG in SODIUM CHLORIDE 0.9% 100 ML IV SCH (11:59)
[2017-08-22] MEDS: SODIUM CHLORIDE 0.9% 1,000 ML IV SCH (16:22)
[2017-08-22] MEDS: LEVOFLOXACIN INJ 500 MG in PREMIX 1 EACH IV SCH (17:50)
[2017-08-22] MEDS: ENOXAPARIN 40 MG/0.4 ML SYRINGE SUBCUT SCH (21:20)
[2017-08-22] MEDS: ZALEPLON 5 MG CAPSULE PO SCH (22:01)
[2017-08-22] MEDS: clonazePAM 0.5 MG TABLET PO PRN (22:04)
[2017-08-23] MEDS: CEFTAROLINE 400 MG in SODIUM CHLORIDE 0.9% 100 ML IV SCH ×3 (00:25→23:47)
[2017-08-23] MEDS: ALBUTEROL/IPRATROPIUM 3 ML NEB RESP TX SCH ×4 (00:28→19:44)
[2017-08-23] MEDS: methylPREDNISolone SOD SUC 40 MG/1 ML VIAL IV SCH (04:30)
[2017-08-23 05:49] LABS: Osmolality,Calculated 280.2 MOS/KG (273-304); Potassium 3.9 MMOL/L (3.5-5.1)
[2017-08-23] MEDS: ARFORMOTEROL 15 MCG/2 ML NEB RESP TX SCH ×2 (09:00→19:44)
[2017-08-23] MEDS: NYSTATIN 500,000 UNIT/5 ML UDCUP SWISH/SWAL SCH ×4 (10:25→20:20)
[2017-08-23] MEDS: PANTOPRAZOLE 40 MG TABLET PO SCH (10:25)
[2017-08-23] MEDS: MULTIVITAMIN (OCUVITE) TABLET PO SCH (10:25)
[2017-08-23] MEDS: FERROUS GLUCONATE 324 MG TABLET PO SCH (10:26)
[2017-08-23] MEDS: AMIODARONE 200 MG TABLET PO SCH (10:26)
[2017-08-23] MEDS: DILTIAZEM CD 180 MG CAPSULE PO SCH ×2 (10:26→20:19)
[2017-08-23] MEDS: ASPIRIN CHEW 81 MG TABLET PO SCH (10:26)
[2017-08-23] MEDS: predniSONE 20 MG TABLET PO SCH (10:28)
[2017-08-23] MEDS: FLUoxetine 10 MG CAPSULE PO SCH (12:40)
[2017-08-23] MEDS: SODIUM CHLORIDE 0.9% 1,000 ML IV SCH (12:40)
[2017-08-23] MEDS: clonazePAM 0.5 MG TABLET PO PRN ×2 (13:20→23:01)
[2017-08-23] MEDS: LEVOFLOXACIN INJ 500 MG in PREMIX 1 EACH IV SCH (16:54)
[2017-08-23] MEDS: ZALEPLON 5 MG CAPSULE PO SCH (20:19)
[2017-08-23] MEDS: ENOXAPARIN 40 MG/0.4 ML SYRINGE SUBCUT SCH (20:21)
[2017-08-24] MEDS: ALBUTEROL/IPRATROPIUM 3 ML NEB RESP TX SCH ×4 (02:41→19:08)
[2017-08-24 04:51] LABS: Calcium 7.7 MG/DL (8.5-10.1); Osmolality,Calculated 278.2 MOS/KG (273-304); Potassium 3.5 MMOL/L (3.5-5.1)
[2017-08-24] MEDS: ARFORMOTEROL 15 MCG/2 ML NEB RESP TX SCH ×2 (07:29→19:08)
[2017-08-24] MEDS ORDERED: FUROSEMIDE 40 MG/4 ML VIAL IV ONE (07:53)
[2017-08-24] MEDS: NYSTATIN 500,000 UNIT/5 ML UDCUP SWISH/SWAL SCH ×4 (09:02→21:40)
[2017-08-24] MEDS: AMIODARONE 200 MG TABLET PO SCH (09:02)
[2017-08-24] MEDS: DILTIAZEM CD 180 MG CAPSULE PO SCH ×2 (09:02→21:40)
[2017-08-24] MEDS: PANTOPRAZOLE 40 MG TABLET PO SCH (09:02)
[2017-08-24] MEDS: BISACODYL 5 MG TABLET PO PRN (09:02)
[2017-08-24] MEDS: ASPIRIN CHEW 81 MG TABLET PO SCH (09:02)
[2017-08-24] MEDS: FERROUS GLUCONATE 324 MG TABLET PO SCH (09:02)
[2017-08-24] MEDS: MULTIVITAMIN (OCUVITE) TABLET PO SCH (09:02)
[2017-08-24] MEDS: predniSONE 20 MG TABLET PO SCH (09:02)
[2017-08-24] MEDS: DOCUSATE SODIUM 100 MG CAPSULE PO PRN (09:02)
[2017-08-24] MEDS: FLUoxetine 10 MG CAPSULE PO SCH (12:25)
[2017-08-24] MEDS: CEFTAROLINE 600 MG in SODIUM CHLORIDE 0.9% 100 ML IV SCH (12:25)
[2017-08-24] MEDS: ACETAMINOPHEN 325 MG TABLET PO PRN (16:39)
[2017-08-24] MEDS: ZALEPLON 5 MG CAPSULE PO SCH (21:40)
[2017-08-24] MEDS: ENOXAPARIN 40 MG/0.4 ML SYRINGE SUBCUT SCH (21:40)
[2017-08-25] MEDS: CEFTAROLINE 600 MG in SODIUM CHLORIDE 0.9% 100 ML IV SCH ×2 (00:15→13:30)
[2017-08-25] MEDS: ALBUTEROL/IPRATROPIUM 3 ML NEB RESP TX SCH ×4 (00:24→18:51)
[2017-08-25 05:25] LABS: Basophils % 0.1 % (0.0-0.8); Eosinophils # 0.1 10*3/uL (0.0-0.87); Eosinophils % 0.5 % (0.00-10.9); Hematocrit 32.2 VOL% (35.7-47.0); Hemoglobin 9.6 GM/DL (12.0-16.0); Immature Granulocytes % 0.9 %; Immature Granulocytes Absolute 0.12 #; Lymphocytes # 0.6 10*3/uL (1.4-4.0); Lymphocytes % 4.4 % (21.3-54.2); Mean Corpuscular HGB Conc 29.8 GM/DL (32-36); Mean Corpuscular Hemoglobin 25 PG (27-34); Mean Corpuscular Volume 85.2 FL (87-102); Mean Platelet Volume 9.7 FL (9.6-12.0); Monocytes # 0.8 10*3/uL (0.11-0.8); Monocytes % 6.4 % (1.7-12.7); Neutrophils # 11.2 10*3/uL (1.4-7.4); Neutrophils % 87.7 % (38.7-73.9); Platelet Count 203 T/CUMM (130-400); Red Blood Count 3.78 MC/CUMM (3.8-5.5); Red Cell Distribution Width 15.5 % (9.3-17.3); White Blood Count 12.8 T/CUMM (4-12)
[2017-08-25 05:51] LABS: Band Neutrophils 4 % (0-10); Lymphocytes 7 % (20-55); Platelet Estimate Normal; Segmented Neutrophils 85 % (50-85); Total Cells Counted 100
[2017-08-25] MEDS: ARFORMOTEROL 15 MCG/2 ML NEB RESP TX SCH ×2 (07:09→18:51)
[2017-08-25] MEDS: NYSTATIN 500,000 UNIT/5 ML UDCUP SWISH/SWAL SCH ×4 (09:24→21:18)
[2017-08-25] MEDS: predniSONE 20 MG TABLET PO SCH (09:24)
[2017-08-25] MEDS: AMIODARONE 200 MG TABLET PO SCH (09:24)
[2017-08-25] MEDS: MULTIVITAMIN (OCUVITE) TABLET PO SCH (09:24)
[2017-08-25] MEDS: DILTIAZEM CD 180 MG CAPSULE PO SCH ×2 (09:25→21:19)
[2017-08-25] MEDS: FERROUS GLUCONATE 324 MG TABLET PO SCH (09:25)
[2017-08-25] MEDS: BISACODYL 5 MG TABLET PO PRN (09:25)
[2017-08-25] MEDS: PANTOPRAZOLE 40 MG TABLET PO SCH (09:25)
[2017-08-25] MEDS: ASPIRIN CHEW 81 MG TABLET PO SCH (09:25)
[2017-08-25] MEDS: FLUoxetine 10 MG CAPSULE PO SCH (13:00)
[2017-08-25] MEDS: ZALEPLON 5 MG CAPSULE PO SCH (21:19)
[2017-08-25] MEDS: ENOXAPARIN 40 MG/0.4 ML SYRINGE SUBCUT SCH (21:19)
[2017-08-26] MEDS: CEFTAROLINE 600 MG in SODIUM CHLORIDE 0.9% 100 ML IV SCH ×2 (00:25→12:15)
[2017-08-26] MEDS: ALBUTEROL/IPRATROPIUM 3 ML NEB RESP TX SCH ×4 (00:38→19:12)
[2017-08-26] MEDS: ARFORMOTEROL 15 MCG/2 ML NEB RESP TX SCH ×2 (07:55→19:12)
[2017-08-26] MEDS: NYSTATIN 500,000 UNIT/5 ML UDCUP SWISH/SWAL SCH ×5 (09:04→21:09)
[2017-08-26] MEDS: PANTOPRAZOLE 40 MG TABLET PO SCH (09:05)
[2017-08-26] MEDS: BISACODYL 5 MG TABLET PO PRN (09:05)
[2017-08-26] MEDS: DILTIAZEM CD 180 MG CAPSULE PO SCH ×2 (09:05→21:07)
[2017-08-26] MEDS: MULTIVITAMIN (OCUVITE) TABLET PO SCH (09:05)
[2017-08-26] MEDS: predniSONE 20 MG TABLET PO SCH (09:05)
[2017-08-26] MEDS: ASPIRIN CHEW 81 MG TABLET PO SCH (09:05)
[2017-08-26] MEDS: FERROUS GLUCONATE 324 MG TABLET PO SCH (09:05)
[2017-08-26] MEDS: AMIODARONE 200 MG TABLET PO SCH (09:05)
[2017-08-26] MEDS ORDERED: TUBERCULIN SKIN TEST 0.1 ML SYRINGE INTRADERM ONE (10:59)
[2017-08-26] MEDS: clonazePAM 0.5 MG TABLET PO PRN ×2 (11:04→21:07)
[2017-08-26] MEDS: FLUoxetine 10 MG CAPSULE PO SCH (12:10)
[2017-08-26] MEDS: ENOXAPARIN 40 MG/0.4 ML SYRINGE SUBCUT SCH (21:08)
[2017-08-26] MEDS: diphenhydrAMINE CAP 25 MG CAPSULE PO PRN (23:30)
[2017-08-27] MEDS: ALBUTEROL/IPRATROPIUM 3 ML NEB RESP TX SCH ×4 (00:11→20:35)
[2017-08-27] MEDS: CEFTAROLINE 600 MG in SODIUM CHLORIDE 0.9% 100 ML IV SCH ×3 (01:18→23:46)
[2017-08-27] MEDS: ARFORMOTEROL 15 MCG/2 ML NEB RESP TX SCH ×2 (06:45→20:35)
[2017-08-27] MEDS: NYSTATIN 500,000 UNIT/5 ML UDCUP SWISH/SWAL SCH ×4 (08:56→20:45)
[2017-08-27] MEDS: clonazePAM 0.5 MG TABLET PO PRN (08:56)
[2017-08-27] MEDS: AMIODARONE 200 MG TABLET PO SCH (08:56)
[2017-08-27] MEDS: PANTOPRAZOLE 40 MG TABLET PO SCH (08:56)
[2017-08-27] MEDS: FERROUS GLUCONATE 324 MG TABLET PO SCH (08:56)
[2017-08-27] MEDS: MULTIVITAMIN (OCUVITE) TABLET PO SCH (08:56)
[2017-08-27] MEDS: ASPIRIN CHEW 81 MG TABLET PO SCH (08:56)
[2017-08-27] MEDS: predniSONE 20 MG TABLET PO SCH (08:56)
[2017-08-27] MEDS: DILTIAZEM CD 180 MG CAPSULE PO SCH ×2 (08:56→20:45)
[2017-08-27] MEDS: FLUoxetine 10 MG CAPSULE PO SCH (14:19)
[2017-08-27] MEDS: ENOXAPARIN 40 MG/0.4 ML SYRINGE SUBCUT SCH (20:45)
[2017-08-27] MEDS: POTASSIUM CHLORIDE 20 MEQ/15 ML UDCUP PER TUBE PRN (20:48)
[2017-08-28] MEDS: POTASSIUM CHLORIDE 20 MEQ/15 ML UDCUP PER TUBE PRN (00:36)
[2017-08-28] MEDS: ALBUTEROL/IPRATROPIUM 3 ML NEB RESP TX SCH ×4 (00:44→19:13)
[2017-08-28] MEDS: ARFORMOTEROL 15 MCG/2 ML NEB RESP TX SCH ×2 (08:10→19:13)
[2017-08-28] MEDS: ASPIRIN CHEW 81 MG TABLET PO SCH (09:19)
[2017-08-28] MEDS: AMIODARONE 200 MG TABLET PO SCH (09:19)
[2017-08-28] MEDS: NYSTATIN 500,000 UNIT/5 ML UDCUP SWISH/SWAL SCH ×4 (09:19→21:29)
[2017-08-28] MEDS: BISACODYL 5 MG TABLET PO PRN (09:19)
[2017-08-28] MEDS: PANTOPRAZOLE 40 MG TABLET PO SCH (09:19)
[2017-08-28] MEDS: MULTIVITAMIN (OCUVITE) TABLET PO SCH (09:20)
[2017-08-28] MEDS: DILTIAZEM CD 180 MG CAPSULE PO SCH ×2 (09:20→21:28)
[2017-08-28] MEDS: FERROUS GLUCONATE 324 MG TABLET PO SCH (09:20)
[2017-08-28] MEDS: predniSONE 20 MG TABLET PO SCH (09:20)
[2017-08-28] MEDS: FLUoxetine 10 MG CAPSULE PO SCH (12:15)
[2017-08-28] MEDS: CEFTAROLINE 600 MG in SODIUM CHLORIDE 0.9% 100 ML IV SCH (12:15)
[2017-08-28] MEDS: ENOXAPARIN 40 MG/0.4 ML SYRINGE SUBCUT SCH (21:27)
[2017-08-28] MEDS: clonazePAM 0.5 MG TABLET PO PRN (21:28)
[2017-08-28] MEDS: diphenhydrAMINE CAP 25 MG CAPSULE PO PRN (21:28)
[2017-08-29] MEDS: CEFTAROLINE 600 MG in SODIUM CHLORIDE 0.9% 100 ML IV SCH ×2 (00:22→11:50)
[2017-08-29] MEDS: ALBUTEROL/IPRATROPIUM 3 ML NEB RESP TX SCH ×4 (01:13→19:20)
[2017-08-29] MEDS: ARFORMOTEROL 15 MCG/2 ML NEB RESP TX SCH ×2 (07:06→19:20)
[2017-08-29] MEDS: ASPIRIN CHEW 81 MG TABLET PO SCH (09:26)
[2017-08-29] MEDS: predniSONE 20 MG TABLET PO SCH (09:26)
[2017-08-29] MEDS: FERROUS GLUCONATE 324 MG TABLET PO SCH (09:26)
[2017-08-29] MEDS: NYSTATIN 500,000 UNIT/5 ML UDCUP SWISH/SWAL SCH ×4 (09:26→21:15)
[2017-08-29] MEDS: BISACODYL 5 MG TABLET PO PRN (09:26)
[2017-08-29] MEDS: PANTOPRAZOLE 40 MG TABLET PO SCH (09:26)
[2017-08-29] MEDS: MULTIVITAMIN (OCUVITE) TABLET PO SCH (09:26)
[2017-08-29] MEDS: AMIODARONE 200 MG TABLET PO SCH (09:26)
[2017-08-29] MEDS: DILTIAZEM CD 180 MG CAPSULE PO SCH ×2 (09:28→21:13)
[2017-08-29] MEDS: FLUoxetine 10 MG CAPSULE PO SCH (11:50)
[2017-08-29] MEDS: clonazePAM 0.5 MG TABLET PO PRN ×2 (18:15→21:15)
[2017-08-29] MEDS: ENOXAPARIN 40 MG/0.4 ML SYRINGE SUBCUT SCH (21:12)
[2017-08-29] MEDS: ZALEPLON 5 MG CAPSULE PO SCH (21:13)
[2017-08-29] MEDS: ACETAMINOPHEN 325 MG TABLET PO PRN (21:14)
[2017-08-30] MEDS: CEFTAROLINE 600 MG in SODIUM CHLORIDE 0.9% 100 ML IV SCH ×2 (00:15→14:02)
[2017-08-30] MEDS: ALBUTEROL/IPRATROPIUM 3 ML NEB RESP TX SCH ×4 (00:20→20:38)
[2017-08-30] MEDS: ACETAMINOPHEN 325 MG TABLET PO PRN (07:27)
[2017-08-30] MEDS: ARFORMOTEROL 15 MCG/2 ML NEB RESP TX SCH ×2 (07:41→20:38)
[2017-08-30] MEDS: AMIODARONE 200 MG TABLET PO SCH (08:15)
[2017-08-30] MEDS: BISACODYL 5 MG TABLET PO PRN (08:16)
[2017-08-30] MEDS: MULTIVITAMIN (OCUVITE) TABLET PO SCH (08:16)
[2017-08-30] MEDS: NYSTATIN 500,000 UNIT/5 ML UDCUP SWISH/SWAL SCH ×4 (08:16→20:55)
[2017-08-30] MEDS: FERROUS GLUCONATE 324 MG TABLET PO SCH (08:16)
[2017-08-30] MEDS: predniSONE 20 MG TABLET PO SCH (08:16)
[2017-08-30] MEDS: ASPIRIN CHEW 81 MG TABLET PO SCH (08:16)
[2017-08-30] MEDS: DILTIAZEM CD 180 MG CAPSULE PO SCH ×2 (08:16→20:54)
[2017-08-30] MEDS: PANTOPRAZOLE 40 MG TABLET PO SCH (08:16)
[2017-08-30] MEDS: FLUoxetine 10 MG CAPSULE PO SCH (12:05)
[2017-08-30] MEDS: ENOXAPARIN 40 MG/0.4 ML SYRINGE SUBCUT SCH (20:54)
[2017-08-30] MEDS: ZALEPLON 5 MG CAPSULE PO SCH (20:54)
[2017-08-30] MEDS: clonazePAM 0.5 MG TABLET PO PRN (20:56)
[2017-08-31] MEDS: ALBUTEROL/IPRATROPIUM 3 ML NEB RESP TX SCH ×4 (00:13→18:10)
[2017-08-31] MEDS: ACETAMINOPHEN 325 MG TABLET PO PRN (04:20)
[2017-08-31] MEDS: ARFORMOTEROL 15 MCG/2 ML NEB RESP TX SCH ×2 (07:15→18:10)
[2017-08-31] MEDS: MULTIVITAMIN (OCUVITE) TABLET PO SCH (09:22)
[2017-08-31] MEDS: AMIODARONE 200 MG TABLET PO SCH (09:22)
[2017-08-31] MEDS: PANTOPRAZOLE 40 MG TABLET PO SCH (09:22)
[2017-08-31] MEDS: NYSTATIN 500,000 UNIT/5 ML UDCUP SWISH/SWAL SCH ×5 (09:23→21:57)
[2017-08-31] MEDS: FERROUS GLUCONATE 324 MG TABLET PO SCH (09:23)
[2017-08-31] MEDS: predniSONE 20 MG TABLET PO SCH (09:23)
[2017-08-31] MEDS: DILTIAZEM CD 180 MG CAPSULE PO SCH ×2 (09:23→21:56)
[2017-08-31] MEDS: ASPIRIN CHEW 81 MG TABLET PO SCH (09:23)
[2017-08-31 12:25] LABS: Albumin 2.6 G/DL (3.4-5.0); Calcium 7.9 MG/DL (8.5-10.1); Potassium 4.1 MMOL/L (3.5-5.1)
[2017-08-31] MEDS: FLUoxetine 10 MG CAPSULE PO SCH (12:45)
[2017-08-31] MEDS: CEFTAROLINE 600 MG in SODIUM CHLORIDE 0.9% 100 ML IV SCH ×2 (12:46)
[2017-08-31] MEDS: clonazePAM 0.5 MG TABLET PO PRN (16:51)
[2017-08-31] MEDS: ZALEPLON 5 MG CAPSULE PO SCH (21:56)
[2017-08-31] MEDS: ENOXAPARIN 40 MG/0.4 ML SYRINGE SUBCUT SCH (21:57)
[2017-09-01] MEDS: CEFTAROLINE 600 MG in SODIUM CHLORIDE 0.9% 100 ML IV SCH (00:38)
[2017-09-01] MEDS: diphenhydrAMINE CAP 25 MG CAPSULE PO PRN (00:42)
[2017-09-01] MEDS: clonazePAM 0.5 MG TABLET PO PRN ×2 (02:37→09:54)
[2017-09-01] MEDS: ALBUTEROL/IPRATROPIUM 3 ML NEB RESP TX SCH ×3 (03:30→15:30)
[2017-09-01] MEDS: ALBUTEROL 2.5 MG/3 ML NEB RESP TX PRN ×2 (04:05→10:55)
[2017-09-01] MEDS ORDERED: FUROSEMIDE 40 MG/4 ML VIAL IV ONE (04:30)
[2017-09-01 06:10] LABS: Allen Test Positive
[2017-09-01 06:11] LABS: ABG Base Excess 5.8 MMOL/L (-2.5-2.5); ABG HCO3 32.2 MMOL/L (20-26); ABG Oxygen Saturation 89.9 % (95-100); ABG PO2 63.8 MM HG (80-95)
[2017-09-01] MEDS: ARFORMOTEROL 15 MCG/2 ML NEB RESP TX SCH (07:12)
[2017-09-01] MEDS ORDERED: ZINC OXIDE PASTE 113 GM TUBE TOP PRN (09:39)
[2017-09-01] MEDS: AMIODARONE 200 MG TABLET PO SCH (09:54)
[2017-09-01] MEDS: MULTIVITAMIN (OCUVITE) TABLET PO SCH (09:54)
[2017-09-01] MEDS: PANTOPRAZOLE 40 MG TABLET PO SCH (09:55)
[2017-09-01] MEDS: predniSONE 20 MG TABLET PO SCH (09:55)
[2017-09-01] MEDS: ASPIRIN CHEW 81 MG TABLET PO SCH (09:56)
[2017-09-01] MEDS: DILTIAZEM CD 180 MG CAPSULE PO SCH (09:57)
[2017-09-01] MEDS: NYSTATIN 500,000 UNIT/5 ML UDCUP SWISH/SWAL SCH (09:58)
[2017-09-01 12:08] VITALS: BP 151/65
[2017-09-01] MEDS: FLUoxetine 10 MG CAPSULE PO SCH (12:32)
== END 2017-09-01 15:48 | DRG 190 ==
LOC: EDBD → EDUNIT# → N.ED 12:18 → SUATTDRO 14:22 → N.EDINP 14:22 → N.TELES 19:59
PROVIDERS: ADMIT Family Medicine; ATTEND Internal Medicine

== ENCOUNTER 2017-09-02 00:15 | Inpatient (IN) ==
[2017-09-02] MEDS ORDERED: ONDANSETRON 4 MG/2 ML VIAL IV STA (00:25)
[2017-09-02] MEDS ORDERED: MORPHINE 4 MG/1 ML VIAL IV STA (00:25)
[2017-09-02] MEDS ORDERED: FUROSEMIDE 100 MG/10 ML VIAL IV STA (00:25)
[2017-09-02] MEDS ORDERED: ALBUTEROL 2.5 MG/3 ML NEB RESP TX SCH (00:30)
[2017-09-02 00:51] LABS: ABG Base Excess 4.5 MMOL/L (-2.5-2.5); ABG HCO3 28.4 MMOL/L (20-26); ABG Oxygen Saturation 94.2 % (95-100); ABG PH 7.296 (7.35-7.45); ABG TCO2 30.4 MMOL/L (23-27); Allen Test Positive
[2017-09-02 00:53] LABS: Basophils % 0.2 % (0.0-0.8); Eosinophils % 0.1 % (0.00-10.9); Hematocrit 29.7 VOL% (35.7-47.0); Hemoglobin 8.9 GM/DL (12.0-16.0); Immature Granulocytes % 2.2 %; Lymphocytes # 0.6 10*3/uL (1.4-4.0); Lymphocytes % 3.1 % (21.3-54.2); Mean Corpuscular Hemoglobin 26 PG (27-34); Mean Corpuscular Volume 85.6 FL (87-102); Mean Platelet Volume 10.7 FL (9.6-12.0); Monocytes % 5.3 % (1.7-12.7); NRBC # 0.02 10*3/uL; Neutrophils # 16.2 10*3/uL (1.4-7.4); Neutrophils % 89.1 % (38.7-73.9); Platelet Count 159 T/CUMM (130-400); Red Blood Count 3.47 MC/CUMM (3.8-5.5); Red Cell Distribution Width 16.6 % (9.3-17.3); White Blood Count 18.2 T/CUMM (4-12)
[2017-09-02 01:00] LABS: PT Patient Result 10.7 SECS
[2017-09-02 01:13] LABS: Apearance,Urine CLEAR (Clear); Bacteria,Urine Occasional /HPF (Few); Bilirubin,Urine Negative (Negative); Blood, Urine Negative (Negative); Glucose,Urine (UA) Negative (Negative); Hyaline Casts,Urine 8 /LPF (0-3); Ketones,Urine Negative (Negative); Nitrite,Urine Negative (Negative); Protein,Urine Negative; RBC,Urine 1 /HPF (0-4); Squamous Epithelial Cell,Urine Occasional /HPF (0-10); Urine Color Yellow (Yellow); Urine Specific Gravity 1.008 (1.001-1.035); Urine Urobilinogen < 2.0 EU/DL (0.2-1.0); WBC,Urine 3 /HPF (0-6)
[2017-09-02 01:14] LABS: Alanine Aminotransferase 44 U/L (13-56); Albumin 2.6 G/DL (3.4-5.0); Alkaline Phosphatase 63 U/L (45-117); Aspartate Amino Transferase 16 U/L (0-37); Blood Urea Nitrogen 32 MG/DL (7-18); Glucose 103 MG/DL (74-106); Osmolality,Calculated 276.1 MOS/KG (273-304); Potassium 4.3 MMOL/L (3.5-5.1); Sodium 135 MMOL/L (136-145); Total Protein 5.9 G/DL (6.4-8.3); Troponin I Only < 0.015 NG/ML (0.00-0.045)
[2017-09-02 01:26] LABS: Lymphocytes 1 % (20-55); Segmented Neutrophils 98 % (50-85); Total Cells Counted 100
[2017-09-02 01:27] LABS: Ovalocytes Slight; Platelet Estimate Adequate; Polychromasia Few
[2017-09-02 01:28] LABS: Hypochromasia 1+; Tear Drop Cells Few
[2017-09-02] MEDS ORDERED: BISACODYL 5 MG TABLET PO PRN (02:36)
[2017-09-02] MEDS ORDERED: BISACODYL 10 MG SUPP RECTAL PRN (02:36)
[2017-09-02] MEDS ORDERED: clonazePAM 0.5 MG TABLET PO PRN (02:36)
[2017-09-02] MEDS ORDERED: ALBUTEROL/IPRATROPIUM 3 ML NEB RESP TX PRN ×2 (02:36→05:19)
[2017-09-02] MEDS ORDERED: MAGNESIUM HYDROXIDE SUSP 30 ML UDCUP PO PRN (02:36)
[2017-09-02] MEDS ORDERED: ONDANSETRON 4 MG TABLET PO PRN (02:36)
[2017-09-02] MEDS ORDERED: MORPHINE 4 MG/1 ML VIAL IV PRN (02:36)
[2017-09-02] MEDS ORDERED: ACETAMINOPHEN 325 MG TABLET PO PRN (02:36)
[2017-09-02] MEDS ORDERED: NON-FORMULARY MEDICATION (Albuterol Inhaler 2 PUFF) INH PRN (02:36)
[2017-09-02] MEDS ORDERED: DEXTROSE 50% 25 GM/50 ML VIAL IV PRN (02:36)
[2017-09-02] MEDS ORDERED: GLUCAGON 1 MG VIAL IM PRN (02:36)
[2017-09-02] MEDS ORDERED: DOCUSATE SODIUM 100 MG CAPSULE PO PRN (02:36)
[2017-09-02] MEDS ORDERED: ALUMINUM/MAGNES/SIMETH MAX STR 30 ML UDCUP PO PRN (02:36)
[2017-09-02] MEDS ORDERED: ONDANSETRON 4 MG/2 ML VIAL IV PRN (02:36)
[2017-09-02] MEDS ORDERED: ALBUTEROL 2.5 MG/3 ML NEB RESP TX PRN (02:36)
[2017-09-02 03:44] LABS: ABG Base Excess 4.1 MMOL/L (-2.5-2.5); ABG HCO3 27.9 MMOL/L (20-26); ABG Oxygen Saturation 84.3 % (95-100); ABG PCO2 64.9 MM HG (35-48); ABG PO2 55.2 MM HG (80-95); ABG TCO2 29.8 MMOL/L (23-27); Allen Test Positive; Pt O2 Delivery Device BIPAP
[2017-09-02] MEDS ORDERED: NALOXONE 0.4 MG/ML VIAL ONE (03:57)
[2017-09-02] MEDS: methylPREDNISolone SOD SUC 40 MG/1 ML VIAL IV SCH ×3 (04:03→20:54)
[2017-09-02] MEDS ORDERED: NALOXONE 0.4 MG/ML VIAL IV ONE ×2 (04:30→05:00)
[2017-09-02] MEDS ORDERED: NALOXONE IV SCH (05:00)
[2017-09-02] MEDS ORDERED: SODIUM CHLORIDE 0.9% IV SCH (05:00)
[2017-09-02] MEDS: SODIUM CHLORIDE 0.9% 1,000 ML IV SCH (06:01)
[2017-09-02 06:16] LABS: Troponin I Only < 0.015 NG/ML (0.00-0.045)
[2017-09-02] MEDS: ALBUTEROL/IPRATROPIUM 3 ML NEB RESP TX SCH ×3 (07:32→19:30)
[2017-09-02] MEDS ORDERED: FUROSEMIDE 40 MG TABLET PO SCH (08:00)
[2017-09-02] MEDS ORDERED: predniSONE 20 MG TABLET PO SCH (09:00)
[2017-09-02] MEDS ORDERED: DOCUSATE SODIUM 100 MG CAPSULE PO SCH (09:00)
[2017-09-02] MEDS ORDERED: PANTOPRAZOLE 40 MG VIAL IV SCH (09:00)
[2017-09-02] MEDS ORDERED: ASPIRIN CHEW 81 MG TABLET PO SCH (09:00)
[2017-09-02] MEDS: INSULIN REGULAR 100 UNIT/ML SUBCUT SCH ×4 (09:22→20:55)
[2017-09-02] MEDS: FUROSEMIDE 40 MG/4 ML VIAL IV SCH ×2 (09:24→17:05)
[2017-09-02] MEDS: CEFUROXIME 250 MG TABLET PO SCH ×2 (12:40→20:55)
[2017-09-02] MEDS: ENOXAPARIN 40 MG/0.4 ML SYRINGE SUBCUT SCH (12:40)
[2017-09-02] MEDS: DILTIAZEM CD 180 MG CAPSULE PO SCH ×2 (12:42→20:55)
[2017-09-02] MEDS: AMIODARONE 200 MG TABLET PO SCH (12:42)
[2017-09-02] MEDS: FERROUS GLUCONATE 324 MG TABLET PO SCH (12:43)
[2017-09-02] MEDS: MULTIVITAMIN (OCUVITE) TABLET PO SCH (12:43)
[2017-09-02] MEDS: metOLazone 5 MG TABLET PO SCH (12:44)
[2017-09-02] MEDS: PANTOPRAZOLE 40 MG TABLET PO SCH (12:44)
[2017-09-02] MEDS: POTASSIUM CHLORIDE 10 MEQ TABLET PO SCH ×2 (12:44→20:55)
[2017-09-02] MEDS: FLUoxetine 10 MG CAPSULE PO SCH (13:32)
[2017-09-02] MEDS: ZINC OXIDE PASTE 113 GM TUBE TOP SCH (17:45)
[2017-09-02] MEDS ORDERED: ZALEPLON 5 MG CAPSULE PO SCH (21:00)
[2017-09-03] MEDS: ALBUTEROL/IPRATROPIUM 3 ML NEB RESP TX SCH ×2 (00:06→07:27)
[2017-09-03] MEDS: SODIUM CHLORIDE 0.9% 1,000 ML IV SCH (03:45)
[2017-09-03] MEDS: ZINC OXIDE PASTE 113 GM TUBE TOP SCH ×2 (03:45→08:24)
[2017-09-03] MEDS: methylPREDNISolone SOD SUC 40 MG/1 ML VIAL IV SCH ×2 (04:45→11:22)
[2017-09-03 05:09] LABS: Basophils % 0.1 % (0.0-0.8); Hematocrit 29.8 VOL% (35.7-47.0); Hemoglobin 8.9 GM/DL (12.0-16.0); Immature Granulocytes % 2.1 %; Immature Granulocytes Absolute 0.34 #; Lymphocytes # 0.4 10*3/uL (1.4-4.0); Lymphocytes % 2.4 % (21.3-54.2); Mean Corpuscular HGB Conc 29.9 GM/DL (32-36); Mean Corpuscular Hemoglobin 26 PG (27-34); Mean Corpuscular Volume 86.4 FL (87-102); Mean Platelet Volume 10.5 FL (9.6-12.0); Monocytes # 0.4 10*3/uL (0.11-0.8); Monocytes % 2.2 % (1.7-12.7); NRBC # 0.05 10*3/uL; Neutrophils # 15.4 10*3/uL (1.4-7.4); Neutrophils % 93.2 % (38.7-73.9); Platelet Count 151 T/CUMM (130-400); Red Blood Count 3.45 MC/CUMM (3.8-5.5); Red Cell Distribution Width 16.7 % (9.3-17.3); White Blood Count 16.5 T/CUMM (4-12)
[2017-09-03 05:42] LABS: Hypochromasia 1+; Lymphocytes 7 % (20-55); Nucleated Red Blood Cells 1 (0-5); Platelet Estimate Normal; Segmented Neutrophils 92 % (50-85); Total Cells Counted 100
[2017-09-03 05:43] LABS: Microcytosis Slight
[2017-09-03 05:54] LABS: Albumin 2.5 G/DL (3.4-5.0); Bilirubin,Total 0.5 MG/DL (0.2-1.0); Calcium 8.1 MG/DL (8.5-10.1); Osmolality,Calculated 276.7 MOS/KG (273-304); Potassium 5.4 MMOL/L (3.5-5.1); Risk Ratio 2.49; Total Protein 5.7 G/DL (6.4-8.3); VLDL CHOLESTEROL 20.2 MG/DL
[2017-09-03] MEDS: INSULIN REGULAR 100 UNIT/ML SUBCUT SCH ×2 (07:59→11:22)
[2017-09-03] MEDS: CEFUROXIME 250 MG TABLET PO SCH (08:22)
[2017-09-03] MEDS: FERROUS GLUCONATE 324 MG TABLET PO SCH (08:22)
[2017-09-03] MEDS: PANTOPRAZOLE 40 MG TABLET PO SCH (08:22)
[2017-09-03] MEDS: MULTIVITAMIN (OCUVITE) TABLET PO SCH (08:22)
[2017-09-03] MEDS: DILTIAZEM CD 180 MG CAPSULE PO SCH (08:22)
[2017-09-03] MEDS: AMIODARONE 200 MG TABLET PO SCH (08:22)
[2017-09-03] MEDS: metOLazone 5 MG TABLET PO SCH (08:23)
[2017-09-03] MEDS: POTASSIUM CHLORIDE 10 MEQ TABLET PO SCH (08:23)
[2017-09-03] MEDS: ENOXAPARIN 40 MG/0.4 ML SYRINGE SUBCUT SCH (08:23)
[2017-09-03] MEDS: FUROSEMIDE 40 MG/4 ML VIAL IV SCH (08:25)
[2017-09-03] MEDS: FLUoxetine 10 MG CAPSULE PO SCH (11:22)
[2017-09-03 14:26] VITALS: BP 101/61
== END 2017-09-03 15:08 | disposition hospice, home (50) | DRG 190 ==
LOC: EDBD → EDUNIT# → N.ED 00:15 → N.EDINP 01:27 → N.CC 02:06
PROVIDERS: ADMIT Internal Medicine; ATTEND Internal Medicine